=== PATIENT | female | born 1965 | race Two or more races ===

== ENCOUNTER 2020-07-17 15:26 | Emergency (ER) | payer OTHER, SELFPAY ==
[2020-07-17 15:54] VITALS: BP 127/63; PULSE 61; RESP 16; TEMP 36.6; O2SAT 97; BMI 16.6
--- NOTE | 2020-07-17 16:07 | ED_ITS ---
HPI - Eye Problem General Chief complaint: Eye Problems Stated complaint: stye in eye Time Seen by Provider: 07/17/20 16:07 History of Present Illness HPI Narrative: Patient complains of an irritated bump in the upper eyelid on the left side for the past 4 5 days, there is a little redness, there is no eye pain there is no vision loss there is no sensitivity to light there has been no trauma Related Data Previous Rx's Medication Instructions Recorded lisinopril 20 1 tab PO DAILY #30 tab 06/21/20 mg-hydrochlorothiazide 12.5 mg tablet ibuprofen 800 mg tablet 800 mg PO TID #90 tab 06/27/20 erythromycin 0.5 inch OPHTHALMIC (EYE) TID 5 07/17/20 Days #3.5 g Allergies Allergy/AdvReac Type Severity Reaction Status Date / Time No Known Allergies Allergy Verified 07/17/20 16:01 [No Known Allergies*] Review of Systems Review of Systems: No fever no chills no vision loss no eye pain no photosensitivity no discharge from the eye no rash Yes all other systems are reviewed and are negative [facility] Past Medical History Source: nursing notes reviewed Medical History (Updated 07/17/20 @ 16:13 by LANDON Dawn) HTN (hypertension) Social History Social History Alcohol intake: never Smoking Status: Current every day smoker Use of substances other than those prescribed or required for medical reasons: No Advance Directives: No Advance Directives Information Provided: Yes Physical Exam Vital Signs: Vital Signs: Last Vital Signs Temp 97.9 F 07/17/20 15:54 Pulse 61 07/17/20 15:54 Resp 16 07/17/20 15:54 BP 127/63 07/17/20 15:54 Pulse Ox 97 07/17/20 15:54 Body Mass Index 16.6 General appearance is comfortable no acute distress A&O x3 Head is normocephalic atraumatic The left eye has 2020 corrected vision with glasses there is no discharge the left upper lid has a stye and is red and inflamed the pupils equal round re active to light there is no photosensitivity extraocular motions are intact Neck is supple Respiratory no acute distress Extremities full range of motion x4, normal gait A&O x3, no focal deficits Discharge Plan Discharge Clinical Impression: Hordeolum externum (stye) Qualifiers: Laterality: left Eyelid: upper Qualified Code(s): H00.014 - Hordeolum externum left upper eyelid Patient Disposition: Home, Self-Care Additional Instructions: Apply a warm cloth to the left upper eyelid frequently Use antibiotic eye ointment as directed Return any time any worse condition or concerns such as discharge from the eye, pain, loss of vision Follow with primary doctor or eye doctor next week if not improved Prescriptions: New erythromycin 5 mg/gram (0.5 %) ointment 0.5 inch ophthalmic (eye) TID 5 Days Qty: 3.5 RF: 0 No Action lisinopril-hydrochlorothiazide 20-12.5 mg tablet 1 tab PO DAILY Qty: 30 RF: 3 ibuprofen 800 mg tablet 800 mg PO TID Qty: 90 RF: 1 Referrals: Chevy Mcknight [Physician] - 2 days (Left eyelid stye)
== END 2020-07-17 16:40 | disposition home or self-care (01) ==
PROVIDERS: Emergency Provider Emergency Medicine; PCP Internal Medicine
DX: H00.014 Hordeolum externum left upper eyelid (principal); H57.12 Ocular pain, left eye; F17.200 Nicotine dependence, unspecified, uncomplicated; Z71.6 Tobacco abuse counseling; Z79.899 Other long term (current) drug therapy
CPT/HCPCS: 99283; 99284

== ENCOUNTER → 2020-07-19 14:09 | Outpatient (BNVA) | payer OTHER, SELFPAY | PROVIDERS: PCP Internal Medicine; Referring Provider Internal Medicine; Visit Provider Nurse Practitioner | DX: Z01.818 Encounter for other preprocedural examination (principal) | CPT/HCPCS: 99212 ==

== ENCOUNTER 2020-07-28 07:24 | Outpatient (REF) | payer OTHER, SELFPAY | END 2020-07-28 07:25 | disposition home or self-care (01) | LOC: HO.LAB 07:24 | PROVIDERS: Visit Provider Internal Medicine | DX: Z20.828 Contact with and (suspected) exposure to other viral communicable diseases (principal) | CPT/HCPCS: C9803; U0003 ==

== ENCOUNTER 2020-08-15 15:04 | Outpatient (REF) | payer OTHER, SELFPAY ==
--- NOTE | 2020-08-15 | US_ITS ---
EXAMINATION: PELVIC ULTRASOUND CLINICAL INFORMATION: Postmenopausal bleeding COMPARISON: Previous pelvic ultrasound June 2018 TECHNIQUE: Transabdominal and transvaginal pelvic ultrasound. Transvaginal exam was performed for better visualization of the uterus and ovaries. FINDINGS: The uterus is anteverted and measures 6.6 x 3.4 x 4.2 cm in dimension. No focal uterine lesion is seen. Endometrial thickness is normal estimated at 0.3 cm. There are nabothian cysts in the cervix. The ovaries are normal-appearing. The right ovary measures 2.7 x 1.6 x 1.5 cm and the left ovary measures 2.1 x 1.7 x 1.2 cm. There is no fluid in the pelvis. US/US transvaginal IMPRESSION: Unremarkable exam. Endometrial thickness is normal.
--- NOTE | 2020-08-15 | US_ITS ---
EXAMINATION: PELVIC ULTRASOUND CLINICAL INFORMATION: Postmenopausal bleeding COMPARISON: Previous pelvic ultrasound June 2018 TECHNIQUE: Transabdominal and transvaginal pelvic ultrasound. Transvaginal exam was performed for better visualization of the uterus and ovaries. FINDINGS: The uterus is anteverted and measures 6.6 x 3.4 x 4.2 cm in dimension. No focal uterine lesion is seen. Endometrial thickness is normal estimated at 0.3 cm. There are nabothian cysts in the cervix. The ovaries are normal-appearing. The right ovary measures 2.7 x 1.6 x 1.5 cm and the left ovary measures 2.1 x 1.7 x 1.2 cm. There is no fluid in the pelvis. US/US pelvic complete IMPRESSION: Unremarkable exam. Endometrial thickness is normal.
== END 2020-08-15 15:05 | disposition home or self-care (01) ==
LOC: HO.US 15:04
PROVIDERS: PCP Internal Medicine; Visit Provider Internal Medicine
DX: N95.0 Postmenopausal bleeding (principal)
CPT/HCPCS: 76830; 76856

== ENCOUNTER 2020-08-25 11:49 | Outpatient (REF) | payer OTHER, SELFPAY | END 2020-08-25 11:50 | disposition home or self-care (01) | LOC: HO.LAB 11:49 | PROVIDERS: Visit Provider Internal Medicine | DX: Z20.828 Contact with and (suspected) exposure to other viral communicable diseases (principal) | CPT/HCPCS: C9803; U0003 ==

== ENCOUNTER 2020-09-29 09:10 | Day surgery (SDC) | payer OTHER, SELFPAY ==
--- NOTE | 2020-09-28 09:09 | HO.ANESPROP2 ---
Documented by User: Anay Bowden 09/28/20 09:14 HPI - Anesthesia Eval Consult details Narrative: 55yo F for Colonoscopy chronic opioids for lumbar DDD PMFSH Past Medical History Medical History (Updated 09/29/20 @ 10:09 by Krystyna Fuller) Benign essential hypertension Bradycardia GERD without esophagitis HTN (hypertension) Insomnia Lumbar degenerative disc disease Postmenopausal vaginal bleeding Pure hypercholesterolemia Family History Family History Mother Lung cancer Surgical History Surgical History H/O hemorrhoidectomy H/O lumbar discectomy History of esophagogastroduodenoscopy (EGD) Hx of colonoscopy (~2004) Social History Social History (Updated 09/29/20 @ 10:09 by Krystyna Fuller) Alcohol intake: never Smoking Status: Current every day smoker Tobacco Type: Cigarette Cigarettes Per Day: 5 Smoked in Last 30 Days: Yes Use of substances other than those prescribed or required for medical reasons: No Advance Directives: No Advance Directives Information Provided: Yes Meds Allergies Allergy/AdvReac Type Severity Reaction Status Date / Time No Known Allergies Allergy Verified 09/29/20 09:34 [No Known Allergies*] Home Medications Medication Instructions Recorded Confirmed Type omeprazole 20 mg capsule,delayed 20 mg PO DAILY 07/19/20 09/26/20 History release baclofen 10 mg tablet 10 mg PO TID 08/31/20 09/13/20 History gabapentin 300 mg capsule 300 mg PO BEDTIME 08/31/20 09/13/20 History zolpidem 10 mg tablet 10 mg PO BEDTIME PRN 08/31/20 09/01/20 History Exam Exam Date and Time: September 28, 2020908 Pertinent Lab Results Pertinent Lab Results: Laboratory Tests 03/25/20 03/25/20 08:26 08:26 WBC 8.9 Hgb 12.1 Hct 35.1 L Plt Count 305 Sodium 141 Potassium 3.7 Chloride 103 BUN 27 H D Creatinine 0.77 Assessment and Plan Assessment Anesthesia Assessment: Chart Reviewed Documented by User: Krystyna Fuller 09/29/20 10:13 [facility] Past Medical History Medical History (Updated 09/29/20 @ 10:09 by Krystyna Fuller) Benign essential hypertension Bradycardia GERD without esophagitis HTN (hypertension) Insomnia Lumbar degenerative disc disease Postmenopausal vaginal bleeding Pure hypercholesterolemia Family History Family History Mother Lung cancer Family history of problems with anesthesia: No Surgical History Surgical History H/O hemorrhoidectomy H/O lumbar discectomy History of esophagogastroduodenoscopy (EGD) Hx of colonoscopy (~2004) History of Problems with Anesthesia: No Social History Social History (Updated 09/29/20 @ 10:09 by Krystyna Fuller) Alcohol intake: never Smoking Status: Current every day smoker Tobacco Type: Cigarette Cigarettes Per Day: 5 Smoked in Last 30 Days: Yes Use of substances other than those prescribed or required for medical reasons: No Advance Directives: No Advance Directives Information Provided: Yes Meds Allergies Allergy/AdvReac Type Severity Reaction Status Date / Time No Known Allergies Allergy Verified 09/29/20 09:34 [No Known Allergies*] Home Medications Medication Instructions Recorded Confirmed Type omeprazole 20 mg capsule,delayed 20 mg PO DAILY 07/19/20 09/26/20 History release baclofen 10 mg tablet 10 mg PO TID 08/31/20 09/13/20 History gabapentin 300 mg capsule 300 mg PO BEDTIME 08/31/20 09/13/20 History zolpidem 10 mg tablet 10 mg PO BEDTIME PRN 08/31/20 09/01/20 History Exam Height,Weight and Vital Signs: Vital Signs Temp Pulse Resp BP Pulse Ox 09/29/20 09:48 98.0 F 43 L 16 153/71 H 98 Airway Mallampati Class: II TM Dist: >3cm Neck ROM: Full Partial: Upper and Lower Heart: RRR Lungs: CTAB Assessment and Plan Assessment Anesthesia Assessment: Anesthesia Plan Discussed and Chart Reviewed Final Anesthetic Review NPO: Yes ASA Class: II Final Preanesthetic Review: No Changes in Pt Med Stat, Meds/Allgs Chart Reviewed, Consent Obtained/Reviewed and Anes Risks/Benef Reviewed Patient Risk: Intermediate Procedure Risk: Low Assessment/Block/Sedation in SS: Assess/Block/Sedation-SS Anesthetic Plan Anesthetic Plan: MAC: Disposition: Standard PACU
[2020-09-29 09:39] VITALS: BMI 22.3
[2020-09-29 09:48] VITALS: BP 153/71; PULSE 43; RESP 16; TEMP 36.7; O2SAT 98
[2020-09-29] MEDS: Lactated Ringers 1,000 ML 100 ML IVCONT (09:59)
--- NOTE | 2020-09-29 10:01 | MHC.SHP ---
Pre-Procedural Eval Section B Chief Complaint: screening Relevant Family History (Specify if Yes): No Relevant Social History: Tobacco Use Present Medications: see Short Stay Collaborative assessment Medical History: Significant History (Benign essential hypertension GERD without esophagitis HTN (hypertension) Insomnia Lumbar degenerative disc disease Postmenopausal vaginal bleeding Pure hypercholesterolemia) History of Previous Operations: Relevant previous surgery/procedure and date(s) (H/O hemorrhoidectomy H/O lumbar discectomy History of esophagogastroduodenoscopy (EGD) Hx of colonoscopy (~2004) Allergies: Allergies Allergy/AdvReac Type Severity Reaction Status Date / Time No Known Allergies Allergy Verified 09/29/20 09:34 [No Known Allergies*] Review of Systems Sugical H&P ROS: Negative: Constitution, Cardiovascular, Respiratory, Neurological, Psychiatric, Hem-Onc, Allergic/Immunologic, Gastrointestinal, Genitourinary, Musculoskeletal, Integumentary, Endocrine and Eyes/Ears/Nose/Throat Exam Surgical H&P Exam: Normal: HEENT, Normal: Heart, Normal: Lungs, Normal: Extremities, Normal: Abdomen, Normal: Skin and Normal: Neurological Plan Diagnosis/Plan: Unchanged I have reviewed the history and physical and performed a pertinent physical examination on my patient. No changes have occurred unless specified.
--- NOTE | 2020-09-29 10:40 | P.OP_ITS ---
Operative Note Operative Note Date of Service: 09/29/20 Narrative: Operative Information Procedure Description: Colonoscopy COLONOSCOPY Instrument: Olympus variable stiffness pediatric scope 190L Colonoscopy Monitoring: Vital signs and clinical assessment, continuous EKG monitoring, Pulse oximetry, Carbon Dioxide monitoring and blood pressure monitoring were done throughout the procedure. Colon withdrawal time was 12 minutes. Procedure: The patient was placed in the left lateral decubitis position and pre-procedure medications were administered. After a digital rectal examination of the ano-rectum, the video colonoscope was inserted into the rectum and advanced through the colon to the cecum/TI. The colonoscope was slowly withdrawn in a retrograde panoramic fashion and the colon mucosa was carefully examined including a retroflexed view of the rectum. Findings and interventions are described below. Procedure Difficulty:easy Findings: Rubio diverticulosis, worse in sigmoid Terminal Ileum-normal, only superficially seen, not deeply intubated due to angulation Cecum:normal, large diverticulum seen on right sided retroflexion Ascending Colon: normal Transverse Colon -normal Descending Colon:normal Sigmoid Colon: normal Rectum: Retroflexion with small internal hemorrhoids, grade I Anorectum - normal Colon preparation: [place] Bowel Preparation Scale Right colon; 2 Transverse colon: 3 Left colon; 2 (0 = Unprepared colon segment with mucosa not seen due to solid stool that cannot be cleared. 1 = Portion of mucosa of the colon segment seen, but other areas of the colon segment not well seen due to staining, residual stool and/or opaque liquid. 2 = Minor amount of residual staining, small fragments of stool and/or opaque liquid, but mucosa of colon segment seen well. 3 = Entire mucosa of colon segment seen well with no residual staining, small fragments of stool or opaque liquid) Impression and Post Procedure Diagnosis: diverticulosis internal hemorrhoids Plan: High fiber diet leaflet Avoid straining at stool, epsom salts and sitz bath, anusol supps or cream prn Repeat Colonoscopy in 10 years or earlier if clinically indicated Above findings were reviewed with the patient and relevant handouts were provided if indicated.
--- NOTE | 2020-09-29 10:40 | PM.OP ---
Brief Operative Note Date of Service: 09/29/20 Post-op diagnosis: same Procedure: see op note Surgeon: Gill Poe MD Anesthesia: MAC Estimated blood loss (mL): 0 Condition: stable Disposition: PACU
[2020-09-29 10:45] VITALS: BP 90/41; PULSE 47; RESP 16; TEMP 36.1; O2SAT 100
[2020-09-29 11:00] VITALS: BP 108/62; PULSE 49; RESP 16; TEMP 36.1; O2SAT 99
[2020-09-29 11:15] VITALS: BP 126/66; PULSE 48; RESP 16; TEMP 36.1; O2SAT 99
--- NOTE | 2020-09-29 11:52 | HO.POSTANES ---
Post Anesthesia Evaluation Post Anesthesia Evaluation Vital Signs: Vital Signs Temp Pulse Resp BP Pulse Ox 09/29/20 11:15 97 F 48 L 16 126/66 99 09/29/20 11:00 97.0 F 49 L 16 108/62 99 09/29/20 10:45 97.0 F 47 L 16 90/41 L 100 09/29/20 09:48 98.0 F 43 L 16 153/71 H 98 Anesthesia: General (tiva) Mental Status: Awake Pain Control: Satisfactory Nausea/Vomiting: None Hydration: Adequate Anesthesia-Related Issues: No Anes. Related Issues
== END 2020-09-29 12:00 | disposition home or self-care (01) ==
PROVIDERS: PCP Internal Medicine; Visit Provider Internal Medicine Gastroenterology
PROC: 0DJD8ZZ Inspection of Lower Intestinal Tract, Via Natural or Artificial Opening Endoscopic (ICD-10-PCS; CPT 45378; principal; 2020-09-29 10:10)
DX: Z12.11 Encounter for screening for malignant neoplasm of colon (principal); K57.30 Diverticulosis of large intestine without perforation or abscess without bleeding; K64.0 First degree hemorrhoids; I10 Essential (primary) hypertension; K21.9 Gastro-esophageal reflux disease without esophagitis; R00.1 Bradycardia, unspecified; F17.210 Nicotine dependence, cigarettes, uncomplicated; Z79.899 Other long term (current) drug therapy
CPT/HCPCS: 45378

== ENCOUNTER → 2020-10-06 15:25 | Outpatient (BNVA) | payer OTHER, SELFPAY | PROVIDERS: PCP Internal Medicine; Visit Provider Nurse Practitioner ==

== ENCOUNTER 2020-10-14 07:27 | Outpatient (REF) | payer OTHER, SELFPAY ==
--- NOTE | ~2020-10-14 | MM_ITS ---
EXAMINATION: MM SCREENING DIGITAL BREAST TOMOSYNTHESIS, BILATERAL CLINICAL INFORMATION: Screening. Asymptomatic. Prior history right ultrasound-guided biopsy 2012, fibroadenoma. The lifetime risk of breast cancer based on the Tyrer-Cuzick Model is 13%. COMPARISON: Mammography: 10/08/2019, 03/22/2017, 07/14/2013 TECHNIQUE: Digital breast tomosynthesis is performed in both the craniocaudal and mediolateral oblique views along with computer-aided detection (CAD). Synthesized 2D images are generated from the tomosynthesis. Additional exaggerated right CC view is provided. FINDINGS: There are scattered areas of fibroglandular density (ACR BI-RADS breast composition Category b). There are no significant masses, abnormal calcifications, or other abnormalities. Parenchymal pattern is similar to prior studies. No developing density. There is biopsy clip marker again noted posterior outer right breast. There is a stable oval circumscribed nodule mid 8:30 o'clock right breast decreased in size since 2012 suggesting regressing cyst. There are some scattered bilateral punctate and coarse calcifications. No significant changes. MM/MM tomosynthesis screening BI IMPRESSION: No significant changes from prior exams. ASSESSMENT: BI-RADS 2: Benign RECOMMENDATION: Routine annual mammography screening. This patient's information was entered into a reminder system with a target due date for their next mammogram.
== END 2020-10-14 07:28 | disposition home or self-care (01) ==
LOC: HO.MAMMO 07:27
PROVIDERS: PCP Internal Medicine; Visit Provider Internal Medicine
DX: Z12.31 Encounter for screening mammogram for malignant neoplasm of breast (principal)
CPT/HCPCS: 77063; 77067

== ENCOUNTER 2021-03-31 07:11 | Outpatient (REF) | payer OTHER, SELFPAY ==
[2021-03-31 07:37] LABS: MANUAL DIFF FLAG NO
[2021-03-31 07:42] LABS: Basophils Percent Auto 0.1 % (0-2); Hematocrit 33.8 % (37-47); Hemoglobin 11.8 g/dl (12.0-16.0); Imm Gran Abs Auto 0.04 X10*3/uL (0.00-0.03); Imm Gran Pct Auto 0.5 % (0.0-0.4); Lymphocytes Absolute Auto 1.8 X10*3/uL (1.2-4.9); Lymphocytes Percent Auto 24.9 % (20-40); Mean Corpuscular HGB Conc 34.9 g/dl (31.0-35.0); Mean Corpuscular Hemoglobin 32.2 pg (27.0-33.0); Mean Corpuscular Volume 92.3 fL (80-98); Mean Platelet Volume 11.3 fL (9.4-12.3); Monocytes Absolute Auto 0.3 X10*3/uL (0.1-1.2); Monocytes Percent Auto 3.8 % (2-11); Neutrophils Absolute Auto 5.2 X10*3/uL (2.0-8.3); Neutrophils Percent Auto 70.7 % (45-73); Platelet Count 334 X10*3/uL (160-400); Red Blood Count 3.66 X10*6/uL (4.20-5.50); Red Cell Distribution Width 11.7 % (11.0-16.0); White Blood Count 7.4 X10*3/uL (4.8-10.8)
[2021-03-31 08:05] LABS: Alanine Aminotransferase 25 U/L (0-31); Albumin Level 4.8 g/dL (3.5-5.0); Alkaline Phosphatase 93 U/L (39-117); Anion Gap 13 (12-20); Aspartate Amino Transferase 21 U/L (5-31); Bilirubin Total 0.4 mg/dL (0.0-1.0); Blood Urea Nitrogen 15 mg/dL (9-16); Calcium 10.4 mg/dL (8.4-10.2); Carbon Dioxide 28 mmol/L (22-29); Chloride 105 mmol/L (96-108); Cholesterol 216 mg/dL; Estimated Glomerular Filt Rate > 60; Glucose Fasting 112 mg/dL (60-99); HDL Cholesterol 52 mg/dL; LDL Cholesterol Calculated 146 mg/dl; Potassium 3.9 mmol/L (3.3-5.1); Sodium 142 mmol/L (135-145); Triglycerides 93 mg/dL
[2021-03-31 08:22] LABS: Glucose Urine UA NEG (NEG); Leukocyte Esterase Urine NEG (NEG); Nitrite Urine NEG (NEG); Specific Gravity - Urine 1.015 (1.005-1.025); Urine Blood TRACE (NEG); Urine Ketones NEG (NEG); Urine Protein TRACE MG/DL (NEG-TRACE)
[2021-03-31 08:24] LABS: Appearance Urine CLEAR; Color Urine YELLOW
[2021-03-31 08:26] LABS: Free T4 (Free Thyroxine) 0.98 ng/dL (0.71-1.85); Vitamin D 25-OH Total 35.3 ng/mL (>30)
[2021-03-31 08:40] LABS: Bacteria Urine 1+ /LPF; Squamous Epithelial Cell Urine 4+ /LPF; WBC Urine 0-2 /HPF (0-4)
[2021-03-31 08:43] LABS: Erythrocyte Sedimentation Rate 8 MM/HR (0-20)
[2021-03-31 09:52] LABS: Folate 18.8 ng/mL (> or = 4.0); Vitamin B12 982 pg/mL (200-900)
== END 2021-03-31 07:12 | disposition home or self-care (01) ==
LOC: HO.LAB 07:11
PROVIDERS: Absent Provider Internal Medicine; PCP Internal Medicine; Visit Provider Nurse Practitioner Family
DX: Z00.00 Encounter for general adult medical examination without abnormal findings (principal); I10 Essential (primary) hypertension; E78.00 Pure hypercholesterolemia, unspecified; R53.83 Other fatigue
CPT/HCPCS: 36415; 80053; 80061; 81001; 82306; 82607; 82746; 84439; 84443; 85025; 85652

== ENCOUNTER 2021-04-06 06:59 | Outpatient (REF) | payer OTHER, SELFPAY ==
[2021-04-06 07:47] LABS: MANUAL DIFF FLAG NO
[2021-04-06 07:59] LABS: Basophils Percent Auto 0.2 % (0-2); Eosinophils Absolute Auto 0.3 X10*3/uL (0.0-0.4); Eosinophils Percent Auto 3.6 % (0-4); Hematocrit 35.4 % (37-47); Hemoglobin 12.2 g/dl (12.0-16.0); Imm Gran Abs Auto 0.07 X10*3/uL (0.00-0.03); Imm Gran Pct Auto 0.7 % (0.0-0.4); Lymphocytes Absolute Auto 4.8 X10*3/uL (1.2-4.9); Lymphocytes Percent Auto 50.7 % (20-40); Mean Corpuscular HGB Conc 34.5 g/dl (31.0-35.0); Mean Corpuscular Hemoglobin 32.3 pg (27.0-33.0); Mean Corpuscular Volume 93.7 fL (80-98); Mean Platelet Volume 11.5 fL (9.4-12.3); Monocytes Absolute Auto 0.5 X10*3/uL (0.1-1.2); Monocytes Percent Auto 5.1 % (2-11); Neutrophils Absolute Auto 3.8 X10*3/uL (2.0-8.3); Neutrophils Percent Auto 39.7 % (45-73); Platelet Count 336 X10*3/uL (160-400); Red Blood Count 3.78 X10*6/uL (4.20-5.50); Red Cell Distribution Width 12.2 % (11.0-16.0); White Blood Count 9.5 X10*3/uL (4.8-10.8)
[2021-04-06 08:03] LABS: Glucose Urine UA NEG (NEG); Leukocyte Esterase Urine NEG (NEG); Nitrite Urine NEG (NEG); PH 6.5 (5.0-8.0); UACC Culture Trigger NO; Urine Blood TRACE (NEG); Urine Ketones NEG (NEG); Urine Protein NEG (NEG-TRACE)
[2021-04-06 08:06] LABS: Appearance Urine CLEAR; Color Urine YELLOW
[2021-04-06 08:10] LABS: Rheumatoid Factor < 15.0 IU/mL (<15.0)
[2021-04-06 08:18] LABS: Bacteria Urine TRACE /LPF; Squamous Epithelial Cell Urine 3+ /LPF; WBC Urine 0-2 /HPF (0-4)
[2021-04-06 08:19] LABS: Alanine Aminotransferase 56 U/L (0-31); Albumin Level 4.3 g/dL (3.5-5.0); Alkaline Phosphatase 82 U/L (39-117); Anion Gap 11 (12-20); Aspartate Amino Transferase 40 U/L (5-31); Bilirubin Total 0.4 mg/dL (0.0-1.0); Blood Urea Nitrogen 22 mg/dL (9-16); Calcium 9.6 mg/dL (8.4-10.2); Carbon Dioxide 29 mmol/L (22-29); Chloride 105 mmol/L (96-108); Cholesterol 180 mg/dL; Estimated Glomerular Filt Rate > 60; Glucose Fasting 101 mg/dL (60-99); HDL Cholesterol 38 mg/dL; LDL Cholesterol Calculated 92 mg/dl; Potassium 3.7 mmol/L (3.3-5.1); Sodium 141 mmol/L (135-145); Total Protein 6.3 g/dL (6.5-8.0); Triglycerides 250 mg/dL
[2021-04-06 08:34] LABS: Free T4 (Free Thyroxine) 1.11 ng/dL (0.71-1.85); Thyroid Stimulating Hormone 0.85 uIU/mL (0.32-4.0)
[2021-04-06 08:40] LABS: TSH reflex Free T4 0.84 uIU/mL (0.32-4.0)
[2021-04-08 13:05] LABS: Antibody to SS-A Antigen <1.0 NEG AI (<1.0 NEG); Antibody to SS-B Antigen <1.0 NEG AI (<1.0 NEG)
== END 2021-04-06 07:00 | disposition home or self-care (01) ==
LOC: HO.LAB 06:59
PROVIDERS: Absent Provider Nurse Practitioner Family; PCP Internal Medicine; Visit Provider Internal Medicine
DX: I10 Essential (primary) hypertension (principal); F17.200 Nicotine dependence, unspecified, uncomplicated; K21.9 Gastro-esophageal reflux disease without esophagitis; E78.00 Pure hypercholesterolemia, unspecified; R53.83 Other fatigue; H04.123 Dry eye syndrome of bilateral lacrimal glands
CPT/HCPCS: 36415; 80053; 80061; 81001; 81003; 84439; 84443; 85025; 86235; 86431

== ENCOUNTER 2021-04-07 08:13 | Outpatient (REF) | payer OTHER, SELFPAY ==
--- NOTE | ~2021-04-07 | MM_ITS ---
EXAMINATION: BONE DENSITOMETRY CLINICAL INDICATION: Asymptomatic menopausal state. COMPARISON: This is the patient's baseline examination. TECHNIQUE: Using a [employer] DXA System (software version: 13.1) manufactured by [employer], dual-energy x-ray absorptiometry was performed of the lumbar spine and left hip. The images are of good technical quality. Summary results are attached. FINDINGS: AP SPINE L1-L4: BMD 0.904 g/cm2, Z-score -1.1, T-score -2.3, osteopenia. LEFT FEMUR, NECK: BMD 0.691 g/cm2, Z-score -1.2, T-score -2.5, osteoporosis. LEFT FEMUR, TOTAL: BMD 0.740 g/cm2, Z-score -1.2, T-score -2.1, osteopenia. IDENTIFIED RISK FACTORS: Anticonvulsant. Menopause. Recurrent falls. Rheumatoid arthritis. Current smoker. HISTORY OF FRACTURE: None listed. MEDICATIONS: Multivitamin. MM/XR DEXA axial skeleton IMPRESSION: 1. DIAGNOSIS: Osteoporosis based on the lowest T-score value of -2.5 in the femoral neck applying World Health Organization criteria. 2. 10-YEAR FRACTURE RISK PREDICTION, FRAX: Major osteoporotic fracture (clinical spine, forearm, hip or shoulder) 7.5%. Hip fracture 2.5%. 3. Treatment Recommendations: NOF guidelines recommend consideration for treatment in postmenopausal women and men age 50 and older presenting with the following: -A hip or vertebral (clinical or morphometric) fracture. -T-score less than or equal to -2.5 at the femoral neck or spine after appropriate evaluation to exclude secondary causes. -Low bone mass at the hip or spine and a 10-year fracture probability by FRAX of greater than or equal to 3% for hip fracture or greater than or equal to 20% for major osteoporotic fracture based on the [place] adapted WHO algorithm. 4. Other Recommendations: All treatment decisions require clinical judgment and consideration of individual patient factors, including patient preferences, comorbidities, previous drug use, risk factors not captured in the FRAX model (e.g. frailty, falls, vitamin D deficiency, increased bone turnover, interval significant decline in bone density) and possible under or overestimation of fracture risk by FRAX. Additional medical evaluation for secondary cause of low bone mineral density may be appropriate. FUTURE SCAN RECOMMENDATION: People with diagnosed cases of osteoporosis or at high risk for fracture should have regular bone mineral density tests. For patients eligible for Medicare, routine testing is allowed once every 2 years. The testing frequency can be increased to one year for patients who have rapidly progressing disease, those who are receiving or discontinuing medical therapy to restore bone mass, or have additional risk factors.
== END 2021-04-07 08:14 | disposition home or self-care (01) ==
LOC: HO.MAMMO 08:13
PROVIDERS: PCP Internal Medicine; Visit Provider Internal Medicine
DX: Z13.820 Encounter for screening for osteoporosis (principal); M81.0 Age-related osteoporosis without current pathological fracture; Z78.0 Asymptomatic menopausal state; Z91.81 History of falling; M05.9 Rheumatoid arthritis with rheumatoid factor, unspecified; Z79.899 Other long term (current) drug therapy
CPT/HCPCS: 77080

== ENCOUNTER 2021-10-20 07:39 | Outpatient (REF) | payer OTHER, SELFPAY ==
[2021-10-20 08:01] LABS: MANUAL DIFF FLAG NO
[2021-10-20 08:07] LABS: Basophils Percent Auto 0.3 % (0-2); Eosinophils Absolute Auto 0.3 X10*3/uL (0.0-0.4); Eosinophils Percent Auto 3.8 % (0-4); Hematocrit 34.4 % (37.0-47.0); Imm Gran Abs Auto 0.03 X10*3/uL (0.00-0.03); Imm Gran Pct Auto 0.3 % (0.0-0.4); Lymphocytes Percent Auto 33.6 % (20-40); Mean Corpuscular HGB Conc 34.9 g/dl (31.0-35.0); Mean Corpuscular Hemoglobin 32.7 pg (27.0-33.0); Mean Corpuscular Volume 93.7 fL (80.0-98.0); Monocytes Absolute Auto 0.5 X10*3/uL (0.1-1.2); Neutrophils Absolute Auto 5.1 x10*3/uL (2.0-8.3); Platelet Count 302 X10*3/uL (160-400); Red Blood Count 3.67 X10*6/uL (4.20-5.50); Red Cell Distribution Width 11.7 % (11.0-16.0)
[2021-10-20 08:46] LABS: Appearance Urine HAZY; Color Urine YELLOW; Glucose Urine UA NEG (NEG); Leukocyte Esterase Urine 2+ (NEG); Nitrite Urine NEG (NEG); PH 6.5 (5.0-8.0); Specific Gravity - Urine 1.015 (1.005-1.025); UACC Culture Trigger YES; Urine Blood TRACE (NEG); Urine Ketones NEG (NEG); Urine Protein NEG (NEG-TRACE)
[2021-10-20 09:10] LABS: Alanine Aminotransferase 29 U/L (0-31); Albumin Level 4.4 g/dL (3.5-5.0); Alkaline Phosphatase 81 U/L (39-117); Anion Gap 11 (12-20); Aspartate Amino Transferase 21 U/L (5-31); Bilirubin Total 0.6 mg/dL (0.0-1.0); Blood Urea Nitrogen 14 mg/dL (9-16); Calcium 10.1 mg/dL (8.4-10.2); Carbon Dioxide 29 mmol/L (22-29); Chloride 104 mmol/L (96-108); Cholesterol 171 mg/dL; Estimated Glomerular Filt Rate > 60; Glucose Fasting 96 mg/dL (60-99); HDL Cholesterol 43 mg/dL; LDL Cholesterol Calculated 101 mg/dl; Potassium 3.7 mmol/L (3.3-5.1); Sodium 140 mmol/L (135-145); Total Protein 6.6 g/dL (6.5-8.0); Triglycerides 138 mg/dL
[2021-10-20 09:24] LABS: Bacteria Urine 1+ /LPF; RBC Urine 0-2 /HPF (0); Squamous Epithelial Cell Urine 2+ /LPF
[2021-10-20 09:33] LABS: Vitamin D 25-OH Total 31.8 ng/mL (>30)
== END 2021-10-20 07:40 | disposition home or self-care (01) ==
LOC: HO.LAB 07:39
PROVIDERS: PCP Internal Medicine; Visit Provider Internal Medicine
DX: I10 Essential (primary) hypertension (principal); E78.00 Pure hypercholesterolemia, unspecified; E55.9 Vitamin D deficiency, unspecified
CPT/HCPCS: 36415; 80053; 80061; 81001; 82306; 85025; 87086

== ENCOUNTER 2021-12-21 09:33 | Outpatient (REF) | payer OTHER, SELFPAY ==
--- NOTE | 2021-12-21 09:31 | EMG_ITS ---
Bilateral tibial and peroneal motor studies were performed. Bilateral superficial peroneal and sural sensory studies were performed. Tibial H reflexes were obtained. Needle examination was performed at paraspinal and some limb muscles. IMPRESSION: 1. Chronic bilateral lower lumbar radiculopathy with no evidence of acute pathology. 2. Otherwise this study was unremarkable with no evidence of any significant neuropathy. MD MISSY Suggs/ROSANGELA / [id number]
== END 2021-12-21 09:34 | disposition home or self-care (01) ==
LOC: HO.NEURO 09:33
PROVIDERS: Visit Provider Internal Medicine
DX: M79.604 Pain in right leg (principal); M79.605 Pain in left leg
CPT/HCPCS: 95886; 95911

== ENCOUNTER 2022-02-25 10:29 | Emergency (ER) | payer OTHER, SELFPAY ==
[2022-02-25 11:02] VITALS: BP 157/73; PULSE 64; RESP 12; TEMP 36.7; O2SAT 97; BMI 23.0
--- NOTE | 2022-02-25 11:33 | ED.EYEPROB ---
HPI - Eye Problem General Chief complaint: Eye Problems Stated complaint: swollen L eye Time Seen by Provider: 02/25/22 11:33 Source: patient Mode of arrival: ambulatory History of Present Illness HPI Narrative: 56-year-old female with a past medical history of hypertension presenting complaining of left upper eyelid swelling and pain since yesterday. Denies foreign body sensation, vision change/loss, blurry vision, fever, drainage. Denies ring glasses or contact MD chief complaint: eye pain and eye redness Onset (ago): day(s) Related Data Previous Rx's Medication Instructions Recorded atorvastatin 10 mg tablet 10 mg PO DAILY #90 tabs 09/18/21 omeprazole 20 mg capsule,delayed 20 mg PO DAILY #30 caps 09/18/21 release promethazine 25 mg tablet 25 mg PO Q6H PRN for 09/18/21 nausea/vomiting #60 tabs amlodipine 5 mg tablet 5 mg PO DAILY #90 tabs 11/29/21 fluticasone propionate 50 1 spray intranasal DAILY 14 days 12/18/21 mcg/actuation nasal #100 mL spray,suspension (Flonase Allergy Relief) lisinopril 20 1 tab PO DAILY 90 days #90 tabs 01/01/22 mg-hydrochlorothiazide 12.5 mg tablet pyridoxine (vitamin B6) 100 mg 100 mg PO BID 30 days #60 tabs 01/22/22 tablet gabapentin 300 mg capsule 300 mg PO BEDTIME #30 caps 01/29/22 ibuprofen 800 mg tablet 800 mg PO TID PRN for fever #90 01/29/22 tabs oxycodone-acetaminophen 10 mg-325 1 tab PO Q6H PRN pain 28 days #112 01/29/22 mg tablet tabs duloxetine 30 mg capsule,delayed 30 mg PO DAILY 90 days #90 caps 02/06/22 release baclofen 10 mg tablet 10 mg PO TID #270 tabs 02/21/22 cetirizine 10 mg tablet (Zyrtec) 10 mg PO DAILY #30 tabs 02/21/22 erythromycin 5 mg/gram (0.5 %) eye 1 appl ophthalmic-Left QID 7 days 02/25/22 ointment #3.5 grams Allergies Allergy/AdvReac Type Severity Reaction Status Date / Time No Known Allergies Allergy Verified 01/22/22 08:27 [No Known Allergies*] Review of Systems Review of Systems: Constitutional: No Fever, No Chills, No Fatigue, No Malaise ENT/Mouth: No Hearing loss, No Ear Pain, No Nasal Congestion, No sore throat, No Rhinorrhea, No Swallowing Difficulty Eyes: + Eyelid Pain, No Swelling, No Redness, No Foreign Body, No Discharge, No Vision Changes Cardiovascular: No Chest Pain, No SOB, No Palpitations Respiratory: No Cough, No Sputum, No Dyspnea Gastrointestinal: No Nausea, No Vomiting, No Diarrhea, No Constipation, No Abdominal pain Musculoskeletal: No joint pain, No Myalgias, No Joint Swelling Skin: No Skin Lesions, No rash Neuro: No Weakness, No Dizziness, No Headache Yes all other systems are reviewed and are negative [facility] Past Medical History Attestation statement: The following information was validated with the patient. Medical History HTN (hypertension) Surgical History H/O hemorrhoidectomy H/O lumbar discectomy History of esophagogastroduodenoscopy (EGD) Family History Family History Mother Lung cancer Other Mental health problem Social History Social History Household Members: Spouse and Children Housing: House Alcohol intake: current Alcohol intake frequency: holidays/special occasions only Patient Tobacco Use Status: Current everyday Tobacco user Tobacco use type: Cigarette Cigarettes Per Day: 3 e-Cigarette/Vaping Use: Never Used Advance Directives: No Advance Directives Information Provided: No service: No Current occupational status: employed 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 Cognitive needs: No Hearing needs: No Vision needs: Yes Physical Exam Vital Signs: Vital Signs: Last Vital Signs Temp 98.0 F 02/25/22 11:02 Pulse 64 02/25/22 11:02 Resp 12 02/25/22 11:02 BP 157/73 H 02/25/22 11:02 Pulse Ox 97 02/25/22 11:02 O2 Del Method 02/25/22 11:02 BMI result Body Mass Index 23.0 Const: General: cooperative, healthy appearing and no acute distress Orientation/consciousness: patient oriented x3 Limitations: no limitations HEENT: Head: Yes normal to inspection and Yes atraumatic Ears: hearing grossly normal bilaterally General nose exam: Normal external nose present Face and sinus: Yes normal facial exam Eyes: Other: Left upper eyelid with noted internal hordeolum with surrounding swelling and mild erythema. Tender to palpation. No drainage. No evidence of periorbital or orbital cellulitis General: appearance normal, both eyes and all related structures Conjunctivae: conjunctivae normal Sclerae: sclerae normal Corneas: corneas normal Pupils: Equal, round and reactive pupils present EOM: EOMs intact bilaterally Neck: Neck: Yes normal visual inspection and Yes no meningeal signs Resp: Effort & Inspection: normal respiratory effort and no respiratory distress Cardio: Rate: regular rate Skin: Rashes: no rashes Wounds: no wounds Neuro: General: patient oriented x3, tone normal and no meningeal signs Cranial nerves: Yes Equal, round and reactive pupils present Gait exam (Neuro): Normal gait present Extrem: General: Yes normal to inspection MDM - Eye Problem MDM Narrative Medical decision making narrative: 56-year-old female with a past medical history of hypertension presenting complaining of left upper eyelid swelling and pain since yesterday. On exam vital signs stable, NAD/nontoxic-appearing, physical exam consistent with left upper eye internal stye. Discussed with patient warm compresses and massaging at home and will prescribe erythromycin ointment Medical Records Attestation: I reviewed the patient's medical records. Lab Data Attestation: I reviewed the patient's lab results. Discharge Plan Discharge Clinical Impression: Hordeolum eyelid Patient Disposition: Home, Self-Care Instructions: [place] (ED) Additional Instructions: You have a stye in her left upper eyelid. Please apply warm compresses at least 3 times a day and massage area Erythromycin ointment will help with infection If pain or symptoms become worse, swelling worsens, you have vision change or loss or develops fever please return to the emergency department Prescriptions: New erythromycin 5 mg/gram (0.5 %) ointment 1 appl ophthalmic-Left QID 7 Days Qty: 3.5 0RF No Action promethazine 25 mg tablet 25 mg PO Q6H PRN (Reason: for nausea/vomiting) Qty: 60 2RF omeprazole 20 mg capsule,delayed release(DR/EC) 20 mg PO DAILY Qty: 30 5RF atorvastatin 10 mg tablet 10 mg PO DAILY Qty: 90 1RF amlodipine 5 mg tablet 5 mg PO DAILY Qty: 90 1RF fluticasone propionate [Flonase Allergy Relief] 50 mcg/actuation spray,suspension 1 spray intranasal DAILY 14 Days Qty: 100 0RF Rx Instructions: administer into each nostril lisinopril-hydrochlorothiazide 20-12.5 mg tablet 1 tab PO DAILY 90 Days Qty: 90 0RF gabapentin 300 mg capsule 300 mg PO BEDTIME Qty: 30 0RF ibuprofen 800 mg tablet 800 mg PO TID PRN (Reason: for fever) Qty: 90 1RF oxycodone-acetaminophen 10-325 mg tablet 1 tab PO Q6H PRN (Reason: pain) 28 Days Qty: 112 0RF duloxetine 30 mg capsule,delayed release(DR/EC) 30 mg PO DAILY 90 Days Qty: 90 0RF cetirizine [Zyrtec] 10 mg tablet 10 mg PO DAILY Qty: 30 1RF baclofen 10 mg tablet 10 mg PO TID Qty: 270 0RF pyridoxine (vitamin B6) 100 mg tablet 100 mg PO BID 30 Days Qty: 60 2RF Referrals: Bayron Wheeler MD [Primary Care Provider] - Interventions: ED Discharge Assessment Last Done: 02/25/22 11:44 Discharge Date/Time: 02/25/22 11:46
== END 2022-02-25 11:46 | disposition home or self-care (01) ==
PROVIDERS: Emergency Provider Emergency Medicine Emergency Medical Services; PCP Internal Medicine
DX: H00.014 Hordeolum externum left upper eyelid (principal); F17.210 Nicotine dependence, cigarettes, uncomplicated; Z71.6 Tobacco abuse counseling; Z79.899 Other long term (current) drug therapy
CPT/HCPCS: 99282; 99283

== ENCOUNTER 2022-07-26 07:50 | Outpatient (REF) | payer OTHER, SELFPAY ==
--- NOTE | ~2022-07-26 | MM_ITS ---
EXAMINATION: MM SCREENING DIGITAL BREAST TOMOSYNTHESIS, BILATERAL CLINICAL INFORMATION: Screening. Asymptomatic. The lifetime risk of breast cancer based on the Tyrer-Cuzick Model is 9%. COMPARISON: Mammography: October 14, 2020 and studies dating back to July 14, 2013 TECHNIQUE: Digital breast tomosynthesis is performed in both the craniocaudal and mediolateral oblique views along with computer-aided detection (CAD). Synthesized 2D images are generated from the tomosynthesis. Right exaggerated craniocaudal view also performed. FINDINGS: There are scattered areas of fibroglandular density (ACR BI-RADS breast composition Category b). There are no significant masses, abnormal calcifications, or other abnormalities. Stable right breast circumscribed densities identified. MM/MM tomosynthesis screening BI IMPRESSION: No significant changes from prior exam. ASSESSMENT: BI-RADS 2: Benign RECOMMENDATION: Routine annual mammography screening. This patient's information was entered into a reminder system with a target due date for their next mammogram.
== END 2022-07-26 07:51 | disposition home or self-care (01) ==
LOC: HO.MAMMO 07:50
PROVIDERS: PCP Internal Medicine; Visit Provider Internal Medicine
DX: Z12.31 Encounter for screening mammogram for malignant neoplasm of breast (principal)
CPT/HCPCS: 77063; 77067

== ENCOUNTER 2022-10-23 16:22 | Outpatient (REF) | payer OTHER, SELFPAY ==
[2022-10-23 18:44] LABS: Appearance Urine Cloudy; Color Urine Yellow; Glucose Urine UA Negative (Negative); Leukocyte Esterase Urine Large (3+) (Negative); Nitrite Urine Negative (Negative); Specific Gravity - Urine 1.015 (1.005-1.025); UMIC TRIGGER UACC YES; Urine Blood Negative (Negative); Urine Ketones Negative (Negative); Urine Protein Negative (Neg-Trace)
[2022-10-23 19:09] LABS: Bacteria Urine 2+ (None Seen); Hyaline Casts Urine 0-2 /LPF (0-2); Squamous Epithelial Cell Urine >20 /HPF (0-2); UACC Culture Trigger YES; WBC Urine 0-5 /HPF (0-5)
== END 2022-10-23 16:23 | disposition home or self-care (01) ==
LOC: HO.LAB 16:22
PROVIDERS: Physician Assistant; Visit Provider Internal Medicine
DX: N30.00 Acute cystitis without hematuria (principal)
CPT/HCPCS: 81001; 87086

== ENCOUNTER 2022-12-17 12:58 | Outpatient (AMB) | payer OTHER, SELFPAY ==
[2022-12-17 13:00] VITALS: BP 152/88; PULSE 57; TEMP 36.1; O2SAT 100; BMI 21.9
--- NOTE | 2022-12-17 13:00 | MHC.PC.OV ---
Vital Signs 12/17/22 13:00 Height 5 ft 1 in Weight 116 lb 0.6 oz BMI 21.9 BP 152/88 H Blood Pressure Location Lt brachial Position Sitting Pulse 57 Pulse Source Pulse Oximeter Temp 96.9 F Temp Source Skin Pulse Oximetry (%) 100 Oxygen Delivery Method Room Air Intake Visit Reasons: pain in legs [employer] Specialist Required: No Allergies No Known Allergies [No Known Allergies*] Allergy (Verified 06/20/23 11:28) Medication List - Last Reconciled 12/17/22 by Bayron Wheeler MD alendronate 70 mg PO QWEEK 3 months amlodipine 5 mg PO DAILY atorvastatin 10 mg PO DAILY baclofen 10 mg PO TID ciprofloxacin HCl 500 mg PO BID 7 days fluticasone propionate 50 mcg/actuation (Flonase Allergy Relief) 1 spray intranasal DAILY 14 days gabapentin 300 mg PO BEDTIME ibuprofen 800 mg PO TID PRN lisinopril-hydrochlorothiazide 20-12.5 mg 1 tab PO DAILY 90 days omeprazole 20 mg PO DAILY oxycodone-acetaminophen 10-325 mg 1 tab PO Q6H PRN 28 days promethazine 25 mg PO Q6H PRN Tobacco use date assessed: 12/17/22 HPI pain in legs HPI Details Patient comes in today mainly to discuss her present issues as to why her insurance is not allowing her to get her pain med Rx refilled this past weekend Was reportedly told by her pharmacy that per her insurance, she has been getting her pain med Rx refilled about 2 days earlier than when they are actually due consistently for the past few months and that her current Rx would not be due to another week at least States that she has been on the same dose of Rx for a few years now and takes them as instructed Admits that there are times when she has to take slightly more than recommended when her leg pains increase but states that since she takes them only when needed, is sometimes able to skip a dose here and there so she often has a few spare/extra tablets to allow her to be able to do this without running short on her Rx States that her refill was supposed to be due this past weekend but for unexplained reasons, her insurance is telling her she is a week early Is also on Gabapentin 300 mg Q HS but states that she gets very tired and drowsy when she takes Gabapentin so has not been able to take this additionally during the daytime No other acute complaints or symptoms are noted [facility] Medical History Osteoporosis Depression Menopause Headache Bradycardia Postmenopausal vaginal bleeding Insomnia GERD without esophagitis Lumbar degenerative disc disease Pure hypercholesterolemia Benign essential hypertension HTN (hypertension) Surgical History Hx of tubal ligation History of esophagogastroduodenoscopy (EGD) H/O lumbar discectomy H/O hemorrhoidectomy Family History Mother Lung cancer Sister Colon cancer Sister Ovarian cancer Other Mental health problem Social History Household Members: Spouse and Children Housing: House Alcohol intake: current Alcohol intake frequency: holidays/special occasions only Patient Tobacco Use Status: Former Tobacco user Tobacco use type: Cigarette Cigarettes Per Day: 3 e-Cigarette/Vaping Use: Never Used service: No Current occupational status: employed 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 Depression Screening Interpretation: Negative Source: Developed by Drs. Benjamín Chau, Miryam Fisher, Dangelo Dillon and colleagues, with an educational leopoldo from [employer]. Thrive Questionnaire Declines Thrive assessment: No Date Thrive assessed: 10/23/22 I am a: Patient What is your living situation today?: I have a steady place to live Within the past 12 months, did the food you bought not last and you didn't have the money to get more?: Never true Within the past 12 months, did you worry whether your food would run out before you got money to buy more?: Never true Do you have trouble paying for medicines?: No Do you have trouble getting transportation to medical appointments?: No Do you have trouble paying your heating and electricity bill?: No Do you have trouble taking care of your child, family member or friend?: No Do you have trouble with day-to-day activities such as bathing, preparing meals, shopping, managing finances, etc.?: No Are you currently unemployed and looking for a job?: No Are you interested in more education?: No Currently or been in a relationship where the following occur: no concerns reported AUDIT C Alcohol Use Questionnaire (AUDIT-C) 1. How often do you have a drink containing alcohol?: Never 2. How many drinks containing alcohol do you have on a typical day when you are drinking?: 1 or 2 3. How often do you have six or more drinks on one occasion?: Never Total Score: 0 Score Reviewed/Action Taken: Yes PAKO-7 AMB Questionnaire PAKO-7 Date PAKO - 7 assessed: 10/23/22 Source: Developed by Drs. Benjamín Chau, Miryam Fisher, Dangelo Dillon and colleagues, with an educational leopoldo from [employer]. Review of Systems Const Denies chills, Reports fatigue, Denies fever(s) and Denies headache(s) ENT Denies dysphagia, Denies dizziness, Denies otalgia, Denies headache(s), Denies odynophagia and Denies sore throat Card Denies chest pain, Denies palpitations and Denies dyspnea Resp Denies cough and Denies dyspnea GI Reports abdominal pain (over the suprapubic area lately), Denies constipation, Denies dysphagia, Denies heartburn, Denies diarrhea, Denies nausea, Denies odynophagia and Denies vomiting Denies difficulty voiding, Reports nocturia, Reports dysuria (mild) and Reports urinary urgency (and frequency) Musc Reports back pain (over the lower back - chronic) Neuro Denies dizziness and Denies headache(s) Endo Reports fatigue and Denies palpitations Physical exam (Primary Care) Vital Signs: Last Vital Signs Temp 96.9 F 12/17/22 13:00 Pulse 57 12/17/22 13:00 BP 152/88 H 12/17/22 13:00 Pulse Ox 100 12/17/22 13:00 Oxygen Delivery Method Room Air 12/17/22 13:00 BMI result Body Mass Index 21.9 Tobacco/Smoking Status: Tobacco use Status Tobacco use date assessed 12/17/22 12/17/22 13:01 Patient Tobacco Use Status Current everyday Tobacco 12/17/22 13:01 Tobacco use type Cigarette 12/17/22 13:01 e-Cigarette/Vaping Use Never Used 12/17/22 13:01 Depression Screening Interpretation: Negative Thrive Assessment: Date of Thrive Assessment Date Thrive assessed 10/23/22 12/17/22 13:01 Currently or been in a relationship where the following occur: no concerns reported Const General: no acute distress and alert HENMT Ears: TM's normal bilaterally and EAC's normal Throat: Yes posterior oropharynx normal and Yes tonsils normal (no TP congestion) Neck Neck: Yes no lymphadenopathy and Yes supple Resp Auscultation: clear to auscultation bilaterally, no rales and no wheezes Cardio Rate: regular rate Rhythm: regular rhythm Heart sounds: no murmurs GI Palpation (GI): Soft to palpation and nontender Auscultation: normal bowel sounds Back/Spine/Pelvis Thoracic/Lumbar Spine: lumbar spinal tenderness Skin General skin exam: no rashes or lesions noted Extrem General: Yes no clubbing, cyanosis or edema Assessment and Plan Assessment & Plan (1) Pure hypercholesterolemia: Code(s): E78.00 - Pure hypercholesterolemia, unspecified Plan: Reinforced low cholesterol diet Continue Atorvastatin 10 mg QD Will recheck her fasting lipids and labs in a few months for follow-up (2) Benign essential hypertension: Code(s): I10 - Essential (primary) hypertension Plan: Reinforced low-sodium diet - goal is systolic BP of at least 130 mm or less Continue Lisinopril-Hydrochlorothiazide 20-12.5 mg once a day (in AM) and Amlodipine 5 mg daily (in PM) (3) Lumbar degenerative disc disease: Code(s): M51.36 - Other intervertebral disc degeneration, lumbar region Plan: Still c/o frequent radiation of pain down her left leg EMG and NCV done in December 2021 revealed (+) chronic bilateral lower lumbar radiculopathy with no evidence of acute pathology. Study was otherwise unremarkable with no evidence of any significant neuropathy Reinforced activity and weight lifting restrictions to minimize aggravating her back pain Continue Oxycodone-Acetaminophen 10-325 mg every 6 hours as needed (Rx refilled), Baclofen 10 mg TID PRN, Duloxetine 30 mg QD, Gabapentin 300 mg Q HS and Ibuprofen 800 mg 3 times a day with food She was previously sent for repeat lumbar spine x-rays for further evaluation of her recent increasing low back pain as has been several years now since she had any imaging studies done on her lower back but she did not get them done (4) Osteoporosis: Code(s): M81.0 - Age-related osteoporosis without current pathological fracture Qualifiers: Osteoporosis type: age-related Presence of current pathological fracture: without current pathological fracture Qualified Code(s): M81.0 - Age-related osteoporosis without current pathological fracture Plan: Baseline BMD done on 04/07/2021 revealed (+) osteoporosis with a lowest T-score value of -2.5 in the femoral neck Fall precautions reinforced Encouraged to continue taking her daily Vitamin D and Calcium supplements She was started on Alendronate 70 mg Q week a few months ago Will recheck her BMD again for follow up in a few months (5) GERD without esophagitis: Code(s): K21.9 - Gastro-esophageal reflux disease without esophagitis Plan: Dietary restrictions reinforced Continue Omeprazole 20 mg QD (6) Insomnia: Code(s): G47.00 - Insomnia, unspecified Qualifiers: Insomnia type: unspecified Qualified Code(s): G47.00 - Insomnia, unspecified Plan: Sleep hygiene reinforced Trazodone has not helped much and she could not tolerate Zolpidem (nightmares) (7) Depression: Code(s): F32.A - Depression, unspecified Qualifiers: Depression Type: major depressive disorder Major depression recurrence: recurrent Active/Remission status: currently active Major depression episode severity: unspecified Qualified Code(s): F33.9 - Major depressive disorder, recurrent, unspecified Plan: Continue Duloxetine 30 mg QD (8) Smoker: Code(s): F17.200 - Nicotine dependence, unspecified, uncomplicated Plan: Counseled again on smoking cessation Plan To return as scheduled in July 2023 for her annual physical examination Medications: Refilled oxycodone-acetaminophen 10-325 mg 1 tab PO Q6H PRN 112 tabs 0RF pain 28 days M51.36 - Other intervertebral disc degeneration, lumbar region Coding Level of Care Code Est Pt Level 3 (74812) Diagnoses Pure hypercholesterolemia E78.00 Benign essential hypertension I10 Lumbar degenerative disc disease M51.36 Age-related osteoporosis without current pathological fracture M81.0 Osteoporosis type: age-related Presence of current pathological fracture: without current pathological fracture GERD without esophagitis K21.9 Insomnia, unspecified type G47.00 Insomnia type: unspecified Episode of recurrent major depressive disorder, unspecified depression episode severity F33.9 Depression Type: major depressive disorder Major depression recurrence: recurrent Active/Remission status: currently active Major depression episode severity: unspecified Smoker F17.200
== END 2022-12-17 14:14 | disposition home or self-care (01) ==
LOC: HO.HMGH 12:58
PROVIDERS: PCP Internal Medicine; Visit Provider Internal Medicine
DX: M51.36 Other intervertebral disc degeneration, lumbar region (principal); E78.00 Pure hypercholesterolemia, unspecified; I10 Essential (primary) hypertension; F33.9 Major depressive disorder, recurrent, unspecified; M81.0 Age-related osteoporosis without current pathological fracture; K21.9 Gastro-esophageal reflux disease without esophagitis; G47.00 Insomnia, unspecified; F17.210 Nicotine dependence, cigarettes, uncomplicated
CPT/HCPCS: 99213

== ENCOUNTER 2023-02-21 08:27 | Outpatient (REF) | payer OTHER, SELFPAY ==
[2023-02-22 01:14] LABS: CT PCR NOT DETECTED (Not Detect.); NG PCR NOT DETECTED (Not Detect.)
[2023-02-26 07:43] LABS: HPV mRNA E6/E7 rflx Not Detected (Not Detected)
== END 2023-02-21 08:28 | disposition home or self-care (01) ==
LOC: HO.LNP 08:27
PROVIDERS: PCP Internal Medicine; Visit Provider Advanced Practice Midwife
DX: Z01.419 Encounter for gynecological examination (general) (routine) without abnormal findings (principal); N89.8 Other specified noninflammatory disorders of vagina; N94.10 Unspecified dyspareunia; N84.1 Polyp of cervix uteri; Z20.2 Contact with and (suspected) exposure to infections with a predominantly sexual mode of transmission
CPT/HCPCS: 0353U; 87624; 88142

== ENCOUNTER 2023-03-07 14:14 | Outpatient (REF) | payer OTHER, SELFPAY | END 2023-03-07 14:15 | disposition home or self-care (01) | LOC: HO.LAB 14:14 | PROVIDERS: PCP Internal Medicine; Visit Provider Advanced Practice Midwife | DX: N84.1 Polyp of cervix uteri (principal) | CPT/HCPCS: 57500; 81025; 88305 ==

== ENCOUNTER 2023-05-29 08:07 | Outpatient (REF) | payer OTHER, SELFPAY ==
[2023-05-31 22:43] LABS: HPV mRNA E6/E7 rflx Not Detected (Not Detected)
== END 2023-05-29 08:08 | disposition home or self-care (01) ==
LOC: HO.LNP 08:07
PROVIDERS: PCP Internal Medicine; Visit Provider Advanced Practice Midwife
DX: Z12.4 Encounter for screening for malignant neoplasm of cervix (principal); Z11.51 Encounter for screening for human papillomavirus (HPV); R87.625 Unsatisfactory cytologic smear of vagina
CPT/HCPCS: 87624; 88142; 99212

== ENCOUNTER 2023-05-29 08:07 | Outpatient (AMB) | payer OTHER, SELFPAY ==
--- NOTE | 2023-05-29 08:10 | A.OFFVIS_ITS ---
Intake Vital Signs 05/29/23 08:11 Height 5 ft 1 in Weight 115 lb BMI 21.7 BP 138/78 Intake Visit Reasons: Repeat pap Intake Note: The patient agreed to use of a esthetician and manager medical spa during this encounter. Scribed for TABATHA Rao by Eli Landaverde esthetician and manager medical spa, on 05/29/2023 at 8:21 am EST. Data Lead: Data Lead Present (Ava) Allergies No Known Allergies [No Known Allergies*] Allergy (Verified 05/29/23 08:11) Post menopausal: Yes HPI HPI Comments History of Present Illness Details She is here today for a repeat pap due to unsatisfactory cells obtained during last pap smear. She presents no concerns today. PFSH Medical History Osteoporosis Depression Menopause Headache Bradycardia Postmenopausal vaginal bleeding Insomnia GERD without esophagitis Lumbar degenerative disc disease Pure hypercholesterolemia Benign essential hypertension HTN (hypertension) Surgical History Hx of tubal ligation History of esophagogastroduodenoscopy (EGD) H/O lumbar discectomy H/O hemorrhoidectomy Family History Mother Lung cancer Sister Colon cancer Sister Ovarian cancer Other Mental health problem Social History Household Members: Spouse and Children Housing: House Alcohol intake: current Alcohol intake frequency: holidays/special occasions only Patient Tobacco Use Status: Former Tobacco user Tobacco use type: Cigarette Cigarettes Per Day: 3 e-Cigarette/Vaping Use: Never Used service: No Current occupational status: employed 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 Cognitive needs: No Hearing needs: No Vision needs: Yes Female Reproductive History Menstrual Age of Menarche: 15 Date of last pap smear: 02/21/23 (unsat neg hpv) Physical Exam Vital Signs: Last Vital Signs BP 138/78 05/29/23 08:11 BMI result Body Mass Index 21.7 Const General: cooperative, healthy appearing, comfortable, no acute distress, well developed, alert and awake Other: General: Yes bladder normal to palpation External Female Exam: normal external appearance and normal appearance of the urethra Speculum Exam - Vagina: normal appearance of the vagina, normal palpation and vagina atrophic Speculum Exam - Cervix: normal appearance of the cervix, normal palpation and Other cervical findings present (slightly bled during pap) Bimanual exam- vagina & uterus: normal bimanual exam, normal palpation, bladder normal to palpation and normal palpation Bimanual Exam- Adnexa, other: normal adnexae and no masses Assessment & Plan Assessment & Plan (1) Unsatisfactory cytology of vaginal Papanicolaou smear: Code(s): R87.625 - Unsatisfactory cytologic smear of vagina Plan: Discussed: Pap obtained. All of her questions and concerns were addressed to the best of my ability and shared decision making. She is agreeable to plan of care. RTO for AG Orders: Orders Pap Smear Today R87.625 - Unsatisfactory cytologic smear of vagina Coding Level of Care Code Est Pt Level 3 (37382) Diagnoses Unsatisfactory cytology of vaginal Papanicolaou smear R87.625
[2023-05-29 08:11] VITALS: BP 138/78; BMI 21.7
== END 2023-05-29 09:39 | disposition home or self-care (01) ==
PROVIDERS: PCP Internal Medicine; Visit Provider Advanced Practice Midwife
DX: R87.625 Unsatisfactory cytologic smear of vagina (principal)
CPT/HCPCS: 99213

== ENCOUNTER 2023-06-20 10:38 | Outpatient (AMB) | payer OTHER, SELFPAY ==
[2023-06-20 10:55] VITALS: BP 128/82; PULSE 55; O2SAT 98; BMI 21.5
--- NOTE | 2023-06-20 10:55 | MHC.PC.OV ---
Vital Signs 06/20/23 10:55 Height 5 ft 1 in Weight 114 lb BMI 21.5 BP 128/82 Blood Pressure Location Lt brachial Position Sitting Pulse 55 Pulse Source Pulse Oximeter Pulse Oximetry (%) 98 Oxygen Delivery Method Room Air Intake Visit Reasons: right ear and face pin Crate Liner Required: No Accompanied by: Self / Same As Patient Allergies No Known Allergies [No Known Allergies*] Allergy (Verified 06/20/23 11:28) Medication List - Last Reconciled 06/20/23 by Bayron Wheeler MD alendronate 70 mg PO QWEEK 3 months amlodipine 5 mg PO DAILY atorvastatin 10 mg PO DAILY baclofen 10 mg PO TID fluticasone propionate 50 mcg/actuation (Flonase Allergy Relief) 1 spray intranasal DAILY 14 days gabapentin 300 mg PO BEDTIME ibuprofen 800 mg PO TID PRN lisinopril-hydrochlorothiazide 20-12.5 mg 1 tab PO DAILY 90 days omeprazole 20 mg PO DAILY oxycodone 10 mg PO Q6H PRN 28 days promethazine 25 mg PO Q6H PRN Tobacco use date assessed: 06/20/23 Dental Screening Dental Screen Date: 06/20/23 Did you have a dental visit in the last 12 months?: No Did you have a dental problem in the last 6 months where you did not have access to dental care?: No Was dental information given to patient?: No HPI right ear and face pin HPI Details Patient comes in today complaining of increased right ear and right-sided facial pain for the past 2 days She denies any ear discharge or fever but states that the right side of her throat feels sore lately Reports (+) mild headache on the right side but thinks that this is mainly related to her ear pain Denies any dizziness Denies any chest pains, no SOB No nausea/vomiting, no abdominal pain No change in bowel habits noted She is also requesting to get her flu shot today if possible [facility] Medical History Osteoporosis Depression Menopause Headache Bradycardia Postmenopausal vaginal bleeding Insomnia GERD without esophagitis Lumbar degenerative disc disease Pure hypercholesterolemia Benign essential hypertension HTN (hypertension) Surgical History Hx of tubal ligation History of esophagogastroduodenoscopy (EGD) H/O lumbar discectomy H/O hemorrhoidectomy Family History Mother Lung cancer Sister Colon cancer Sister Ovarian cancer Other Mental health problem Social History Household Members: Spouse and Children Housing: House Alcohol intake: current Alcohol intake frequency: holidays/special occasions only Patient Tobacco Use Status: Former Tobacco user Tobacco use type: Cigarette Cigarettes Per Day: 3 e-Cigarette/Vaping Use: Never Used service: No Current occupational status: employed 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 1. Little interest or pleasure in doing things: not at all 2. Feeling down, depressed, or hopeless: not at all 3. Trouble falling or staying asleep, or sleeping too much: not at all 4. Feeling tired or having little energy: not at all 5. Poor appetite or overeating: not at all 6. Feeling bad about yourself - or that you are a failure or have let yourself or your family down: not at all 7. Trouble concentrating on things, such as reading the newspaper or watching television: not at all 8. Moving or speaking so slowly that other people could have noticed. Or the opposite - being so fidgety or restless that you have been moving around a lot more than usual: not at all 9. Thoughts that you would be better off or of hurting yourself in some way: not at all Total score: 0 Depression Screening Interpretation: Negative Depression Screening Done: Yes 76436 - PHQ-9 Billing: Yes Source: Developed by Drs. Benjamín Chau, Miryam Fisher, Dangelo Dillon and colleagues, with an educational leopoldo from [employer]. Thrive Questionnaire Date Thrive assessed: 06/20/23 I am a: Patient What is your living situation today?: I have a steady place to live Within the past 12 months, did the food you bought not last and you didn't have the money to get more?: Never true Within the past 12 months, did you worry whether your food would run out before you got money to buy more?: Never true Do you have trouble paying for medicines?: No Do you have trouble getting transportation to medical appointments?: No Do you have trouble paying your heating and electricity bill?: No Do you have trouble taking care of your child, family member or friend?: No Do you have trouble with day-to-day activities such as bathing, preparing meals, shopping, managing finances, etc.?: No Are you currently unemployed and looking for a job?: No Are you interested in more education?: No Please select the resources that you would like help with: None Currently or been in a relationship where the following occur: no concerns reported AUDIT C Alcohol Use Questionnaire (AUDIT-C) 1. How often do you have a drink containing alcohol?: Never 2. How many drinks containing alcohol do you have on a typical day when you are drinking?: 1 or 2 3. How often do you have six or more drinks on one occasion?: Never Total Score: 0 Score Reviewed/Action Taken: Yes PAKO-7 AMB Questionnaire PAKO-7 Date PAKO - 7 assessed: 06/20/23 Feeling nervous, anxious, or on edge: 0 = Not at all Not being able to stop or control worryin = Not at all Worrying too much about different things: 0 = Not at all Trouble relaxin = Not at all Being so restless that it is hard to sit still: 0 = Not at all Becoming easily annoyed or irritable: 0 = Not at all Feeling afraid as if something awful might happen: 0 = Not at all Total PAKO-7 score (0-4 normal; 5-9 mild; 10-14 moderate; 15-21 severe): 0 Source: Developed by Drs. Benjamín Chau, Miryam Fisher, Dangelo Dillon and colleagues, with an educational leopoldo from [employer]. Review of Systems Const Denies chills, Denies fatigue, Denies fever(s) and Reports headache(s) (mild, right-sided) ENT Denies dysphagia, Denies dizziness, Reports otalgia (right ear), Reports headache(s) (mild, right-sided), Denies neck pain, Denies odynophagia, Reports sinus pain (on the right side) and Reports sore throat (mild, over the right side) Card Denies chest pain, Denies palpitations and Denies dyspnea Resp Denies cough and Denies dyspnea GI Denies abdominal pain, Denies constipation, Denies dysphagia, Denies heartburn, Denies diarrhea, Denies nausea, Denies odynophagia and Denies vomiting Denies difficulty voiding, Denies nocturia and Denies dysuria Musc Denies neck pain Neuro Denies dizziness and Reports headache(s) (mild, right-sided) Endo Denies fatigue and Denies palpitations Physical exam (Primary Care) Vital Signs: Last Vital Signs Pulse 55 06/20/23 10:55 BP 128/82 06/20/23 10:55 Pulse Ox 98 06/20/23 10:55 Oxygen Delivery Method Room Air 06/20/23 10:55 BMI result Body Mass Index 21.5 Tobacco/Smoking Status: Tobacco use Status Tobacco use date assessed 06/20/23 06/20/23 11:00 Patient Tobacco Use Status Former Tobacco user 06/20/23 11:00 Tobacco use type Cigarette 06/20/23 11:00 e-Cigarette/Vaping Use Never Used 06/20/23 11:00 PHQ-9: PHQ-9 Score PHQ-9: Total score 0 06/20/23 11:32 Depression Screening Interpretation: Negative Thrive Assessment: Date of Thrive Assessment Date Thrive assessed 06/20/23 06/20/23 11:00 Currently or been in a relationship where the following occur: no concerns reported Const General: no acute distress and alert HENMT Ears: TM normal on the left, EAC's normal and TM abnormal bulging (slightly) on the right; with no fluid behind the TM Throat: Yes abnormal tonsil ((+) mild congestion/swelling noted over the right tonsillar area) and Yes posterior oropharynx abnormal ((+) erythema) Neck Neck: Yes no lymphadenopathy and Yes supple Resp Auscultation: clear to auscultation bilaterally, no rales and no wheezes Cardio Rate: regular rate Rhythm: regular rhythm Heart sounds: no murmurs GI Palpation (GI): Soft to palpation and nontender Auscultation: normal bowel sounds Skin General skin exam: no rashes or lesions noted Extrem General: Yes no clubbing, cyanosis or edema Office Procedures Flu Questionnaire Does the patient have a severe egg allergy?: No Does the patient have severe life threatening allergies?: No Does the patient have a fever or illness today?: No Has the patient ever had Guillain-[place] Syndrome?: No Has the patient ever had any past reaction to a flu shot?: No Immunizations flu vacc [id number] 6mos up(PF) 60 mcg(15 mcgx4)/0.5 mL IM syringe Performing Provider: Bayron Wheeler MD Performing Location: [facility] Administered by: Sohail Ronquillo on 06/20/23 11:08 Dose Route Admin Location Dispensed Lot Number Expiration Date NDC Celery Tier 0.5 mL IM Left Deltoid 0.5 mL [id number] 03/08/24 63843-710-58 [email or web address] VIS Given Date VIS Provided VIS Publication Date 06/20/23 Single Vaccine 21 Eligibility Eligibility Date Funding Source Not [facility] Eligible 06/20/23 Private Assessment and Plan Assessment & Plan (1) Acute pharyngitis: Code(s): J02.9 - Acute pharyngitis, unspecified Qualifiers: Pharyngitis/tonsillitis etiology: unspecified etiology Qualified Code(s): J02.9 - Acute pharyngitis, unspecified Plan: Patient is advised that her right tonsil appears swollen/inflamed and may be the actual source of her current right ear pain as well Will start her empirically on Augmentin 875 mg BID x 10 days May take OTC Tylenol PRN for pain (both ear pain and sore throat) (2) Congestion of nasal sinus: Code(s): R09.81 - Nasal congestion Plan: May continue taking OTC cough / cold meds PRN for symptomatic relief Plan Per request, flu vaccine given today To return as scheduled next month for her annual physical examination Orders: Orders Influenza [id number] Immunization 06/20/23 Z23 - Encounter for immunization Medications: New amoxicillin-pot clavulanate 875-125 mg 1 tab PO BID 10 days 20 tabs 0RF Coding Level of Care Code Est Pt Level 3 (64408) Diagnoses Acute pharyngitis, unspecified etiology J02.9 Pharyngitis/tonsillitis etiology: unspecified etiology Congestion of nasal sinus R09.81
== END 2023-06-20 11:34 | disposition home or self-care (01) ==
PROVIDERS: PCP Internal Medicine; Visit Provider Internal Medicine
DX: Z23 Encounter for immunization (principal)
CPT/HCPCS: 90471; 90686; 99213

== ENCOUNTER 2023-07-15 08:37 | Emergency (ER) | payer OTHER, SELFPAY ==
--- NOTE | ~2023-07-15 | XR_ITS ---
EXAMINATION: XR ABDOMEN KUB CLINICAL INDICATION: Abdominal pain. Constipation. COMPARISON: None available. TECHNIQUE: AP view of the abdomen. FINDINGS: No dilated air-filled loops of small bowel to suggest an obstructive process. Normal colonic stool burden. Small pelvic calcifications are likely vascular in nature. No acute osseous abnormality. Minimal degenerative changes of the spine. XR/XR KUB IMPRESSION: 1. Nonobstructing bowel gas pattern. 2. Normal colonic stool burden.
--- NOTE | ~2023-07-15 | CT_ITS ---
EXAMINATION: CT ABDOMEN AND PELVIS WITHOUT CONTRAST CLINICAL INFORMATION: Abdominal pain. COMPARISON: Abdominal ultrasound 07/09/2018 TECHNIQUE: Multidetector volumetric imaging was performed from the superior aspect of the liver through the pubic symphysis. Sagittal and coronal reformatted images were obtained on the technologist's workstation. This CT examination was performed using dose optimization techniques as appropriate, variously including the following: *Automated exposure control *Adjustment of mA and/or kV according to patient size (this includes techniques or standardized protocols for targeted exams where dose is matched to indication/reason for exam; i.e. extremities or head) *Use of iterative reconstruction technique DLP: 288 mGy-cm FINDINGS: LUNG BASES: The visualized lung bases are unremarkable. LIVER, GALLBLADDER, AND BILIARY TREE: The noncontrast liver is normal in size and contour. No biliary ductal dilatation is present. The gallbladder is unremarkable with no evidence of radiopaque gallstones, gallbladder wall thickening, or obvious pericholecystic inflammatory changes. PANCREAS: No ductal dilatation. SPLEEN: Not enlarged. ADRENAL GLANDS: Thickening of the adrenal glands. KIDNEYS AND URETERS: The kidneys are normal in size, shape, and attenuation. No hydronephrosis, hydroureter, or calculi seen. No perinephric stranding. BLADDER: Unremarkable. GASTROINTESTINAL TRACT: Diffuse diverticular disease of the colon. There is wall thickening and submucosal edema of the distal transverse colon through the proximal descending colon with surrounding pericolonic inflammatory change. No small bowel obstruction. Appendix is within normal limits. ABDOMINAL WALL: No significant hernia is appreciated. LYMPH NODES: No bulky lymphadenopathy. VASCULAR: Normal caliber abdominal aorta. PELVIC VISCERA: Unremarkable. OSSEOUS STRUCTURES: Marked degenerative disc disease at L4-L5. CT/CT abdomen pelvis wo IV con IMPRESSION: Wall thickening and submucosal edema of the distal transverse colon through the proximal descending colon with surrounding pericolonic inflammatory change. There is diffuse colonic diverticulosis. Differential diagnosis includes acute diverticulitis versus acute colitis. Follow-up imaging after treatment is advised.
[2023-07-15 08:51] VITALS: BP 149/59; PULSE 63; RESP 18; TEMP 37.1; O2SAT 98; BMI 21.5
--- NOTE | 2023-07-15 09:29 | ED.ABDPAIN ---
HPI - Abdominal Pain General Chief Complaint: Abdominal Pain Stated Complaint: abd pain Time Seen by Provider: 07/15/23 09:08 Source: patient and RN notes reviewed Mode of arrival: ambulatory Limitations: no limitations History of Present Illness HPI narrative: This is a 57-year-old female, with a history of hypertension, GERD, fibromyalgia on oxycodone and hyperlipidemia, who presents to the emergency department with ongoing abdominal cramps since Saturday. Patient states that on Saturday, she had vegetables for lunch, she says shortly after she developed abdominal cramps and vomited once. She states that throughout the day she is unable to eat due to nausea and cramping. In the next day, she was drinking water and took her neck cm and started to feel better. Saturday she was feeling better, was able to eat soup and drink plenty of fluids, she endorse some nausea at that time. She states that this morning her abdominal cramping have returned. She has been unable to have a bowel movement since Saturday. She was able to drink coffee this morning without difficulty. She states that she is not on a bowel regimen for chronically prescribed oxycodone. No history of problems with constipation the past. No abdominal surgeries. No urinary symptoms. No other complaints or concerns at this time. MD elicited complaint: abdominal pain Pertinent past history: constipation Onset (ago): day(s) Pain Consistency: intermittent Location: none Severity: moderate Quality: cramping Radiation: none Migration to: no migration Exacerbating factors: nothing Relieving factors: nothing Associated symptoms: denies other symptoms Related Data Previous Rx's Medication Instructions Recorded amlodipine 5 mg tablet 5 mg PO DAILY #90 tabs 03/15/22 fluticasone propionate 50 1 spray intranasal DAILY 14 days 04/23/22 mcg/actuation nasal #100 mL spray,suspension (Flonase Allergy Relief) omeprazole 20 mg capsule,delayed 20 mg PO DAILY #90 caps 01/24/23 release atorvastatin 10 mg tablet 10 mg PO DAILY #90 tabs 02/15/23 promethazine 25 mg tablet 25 mg PO Q6H PRN for 04/16/23 nausea/vomiting #60 tabs alendronate 70 mg tablet 70 mg PO QWEEK 3 months #13 tabs 06/08/23 amoxicillin 875 mg-potassium 1 tab PO BID 10 days #20 tabs 06/20/23 clavulanate 125 mg tablet baclofen 10 mg tablet 10 mg PO TID #270 tabs 06/26/23 lisinopril 20 1 tab PO DAILY 90 days #90 tabs 06/26/23 mg-hydrochlorothiazide 12.5 mg tablet ibuprofen 800 mg tablet 800 mg PO TID PRN for fever #90 07/08/23 tabs oxycodone 10 mg tablet 10 mg PO Q6H PRN pain 28 days #112 07/10/23 tabs gabapentin 300 mg capsule 300 mg PO BEDTIME #30 caps 07/12/23 amoxicillin 875 mg-potassium 1 tab PO Q8H 7 days #21 tabs 07/15/23 clavulanate 125 mg tablet Allergies Allergy/AdvReac Type Severity Reaction Status Date / Time No Known Allergies Allergy Verified 06/20/23 11:28 [No Known Allergies*] Review of Systems Review of Systems Yes all other systems are reviewed and are negative Constitutional: Reports as per [facility] Past Medical History Medical History Osteoporosis Depression Menopause Headache Bradycardia Postmenopausal vaginal bleeding Insomnia GERD without esophagitis Lumbar degenerative disc disease Pure hypercholesterolemia Benign essential hypertension HTN (hypertension) Surgical History Hx of tubal ligation History of esophagogastroduodenoscopy (EGD) H/O lumbar discectomy H/O hemorrhoidectomy Family History Family History Mother Lung cancer Sister Colon cancer Sister Ovarian cancer Other Mental health problem Social History Social History Household Members: Spouse and Children Housing: House Alcohol intake: current Alcohol intake frequency: holidays/special occasions only Patient Tobacco Use Status: Former Tobacco user Tobacco use type: Cigarette Cigarettes Per Day: 3 e-Cigarette/Vaping Use: Never Used Advance Directives: No Advance Directives Information Provided: No service: No Current occupational status: employed Current occupation: [employer] Cognitive needs: No Hearing needs: No Vision needs: Yes Physical Exam ED Vital Signs: Vital Signs - 24 hr 07/15/23 08:51 07/15/23 11:38 07/15/23 13:59 Temperature 98.7 F 98.5 F Pulse Rate 63 55 57 Respiratory Rate 18 12 14 Blood Pressure 149/59 H 165/66 H 149/71 H Pulse Oximetry 98 98 97 Oxygen Delivery Method Room Air Room Air Room Air 07/15/23 15:09 Temperature Pulse Rate 50 Respiratory Rate 20 Blood Pressure 145/65 H Pulse Oximetry 97 Oxygen Delivery Method Room Air BMI result Body Mass Index 21.5 Const General: cooperative, comfortable and no acute distress Orientation/consciousness: patient oriented x3 Limitations: no limitations HENCA Head: Yes normal to inspection, Yes normocephalic and Yes atraumatic Ears: hearing grossly normal bilaterally General nose exam: Normal external nose present Face and sinus: Yes normal facial exam Mouth: Normal oral and palatal mucosa present, oropharynx normal and moist mucous membranes Throat: Yes posterior oropharynx normal Eyes General: appearance normal, both eyes and all related structures Eyelids: Yes eyelids normal Conjunctivae: conjunctivae normal Sclerae: sclerae normal Pupils: Equal, round and reactive pupils present EOM: EOMs intact bilaterally Neck Neck: Yes normal visual inspection, Yes full ROM and Yes no lymphadenopathy Lymphatic: no lymphadenopathy noted Chest Chest palpation & inspection: normal inspection of the chest Resp Effort & Inspection: normal respiratory effort and able to speak in complete sentences Auscultation: clear to auscultation bilaterally, no crackles, no rales, no rhonchi and no wheezes Cardio Rate: regular rate Rhythm: regular rhythm Heart sounds: S1 normal heart sound present and S2 normal heart sound present GI Other: Abdomen is soft, with tenderness to palpation diffusely throughout entire abdomen. Hypoactive bowel sounds present. Inspection: Yes normal to inspection Skin General skin exam: no rashes or lesions noted Trauma: no lacerations or abrasions Wounds: no wounds Neuro General: patient oriented x3 and moves all extremities Cranial nerves: Yes Equal, round and reactive pupils present Extrem General: Yes normal to inspection Right upper extremity: normal to inspection Left upper extremity: normal to inspection Right lower extremity: normal to inspection Left lower extremity: normal to inspection Course Reevaluation(s) Reevaluation #1: Patient in no acute distress, feeling okay. KUB x-ray shows nonobstructing bowel gas pattern and normal colonic stool burden. No current abdominal pain. Potassium low at 2.6. Discussed case with Dr. Clarke, who recommends potassium 40 mEq once by mouth. Time: 11:31 Reevaluation #2: CT scan returns, showing evidence colitis versus diverticulitis. Patient re-evaluated, now having abdominal pain. She was evaluated by Dr. Clarke. Patient now with rebound tenderness and guarding, abdomen is still soft. Dr. Clarke's recommendations are to admit to medicine for further evaluation. Discussed with patient, and she declines wanting hospital admission at this time. We discussed the risk and benefits of treating at home. Despite knowing these risks, patient would like to be discharged home. Patient will be medicated with morphine 4 mg IV and re-evaluate Time: 13:36 Reevaluation #3: Patient feeling much better after receiving morphine. I again discussed treatment options, she still adamantly declines wanting to be admitted to the hospital for further treatment and care. Urinalysis returns, appears to be contaminated. Patient has no urinary symptoms therefore, will await urine culture. Patient can be treated with Augmentin t.i.d. x7 days. Patient will be medicated with 2nd dose of potassium 40 mEq by mouth. I would like this lab repeated however patient adamantly refuses, I discussed these risks with patient including leaving without repeated levels including cardiac arrythmia and cardiac , despite knowing these risk she is still adamentaly refusing. I instructed her to call her primary care physician tomorrow to have this repeated. Given strict return precautions. Patient understands and agrees with plan. Time: 14:52 Medical Decision Making Medical Decision Making MDM Narrative: 57-year-old female presenting to the emergency department with intermittent abdominal cramping since Saturday. On arrival, patient is nontoxic-appearing, in no acute distress. Mildly hypertensive at 149/59, all other vital signs within normal limits. Abdomen is soft, with diffuse tenderness throughout abdomen, no point tenderness. Hypoactive bowel sounds. Patient is on chronic oxycodone, last bowel movement was on Saturday. Given she is not on any bowel regimen and is on opioids, patient is at risk for constipation verses bowel obstruction. She has no history of abdominal surgeries in the past. Plan: Labs, KUB x-ray Differential Diagnosis Differential Diagnoses: The differential diagnosis associated with the presentation includes Constipation, small-bowel obstruction, gastritis, diverticulitis, diverticulosis Admission/Observation Consideration of admission/observation: Escalation of care including admission/observation considered Patient would have been admitted to the hospital had her work up had any findings where hospital admission was appropriate and her clinical presentation warranted hospital admission. Lab Data MDM Lab Attestation statement: I reviewed the patient's lab results. Mild leukocytosis at 13.5, mild normocytic anemia noted an 11.2 point, around her baseline. 07/15/23 10:25 07/15/23 10:25 Labs: Lab Results 07/15/23 07/15/23 Range/Units 10:25 14:03 WBC 13.5 H (4.8-10.8) X10*3/uL RBC 3.28 L (4.20-5.50) X10*6/uL Hgb 11.2 L (12.0-16.0) g/dl Hct 31.7 L (37.0-47.0) % MCV 96.6 (80.0-98.0) fL MCH 34.1 H (27.0-33.0) pg MCHC 35.3 H (31.0-35.0) g/dl RDW 11.9 (11.0-16.0) % Plt Count 289 (160-400) X10*3/uL MPV 11.0 (9.4-12.3) fL Immature Gran % (Auto) 0.4 (0.0-0.4) % Neut % (Auto) 77.6 H (45-73) % Lymph % (Auto) 17.7 L (20-40) % [place] % (Auto) 3.3 (2-11) % Eos % (Auto) 0.7 (0-4) % Baso % (Auto) 0.3 (0-2) % Lymph # (Auto) 2.4 (1.2-4.9) X10*3/uL [place] # (Auto) 0.4 (0.1-1.2) X10*3/uL Eos # (Auto) 0.1 (0.0-0.4) X10*3/uL Baso # (Auto) 0.0 (0.0-0.2) X10*3/uL Abs Immat Gran (auto) 0.06 H (0.00-0.03) X10*3/uL Absolute Neuts (auto) 10.5 H (2.0-8.3) x10*3/uL Absolute Nucleated RBC 0.000 (0.0-0.012) X10*3/uL Nucleated RBC % (auto) 0.0 (0.0-0.2) /100WBC ESR 23 H (0-20) MM/HR Sodium 142 (135-145) mmol/L Potassium 2.6 L D (3.3-5.1) mmol/L Chloride 104 (96-108) mmol/L Carbon Dioxide 27 (22-29) mmol/L Anion Gap 14 (12-20) BUN 17 H (9-16) mg/dL Creatinine 0.62 (0.5-1.4) mg/dL Estim Creat Clear Calc 75.5 Estimated GFR > 60 Random Glucose 87 (60-115) mg/dL Calcium 8.5 D (8.4-10.2) mg/dL Magnesium 2.6 (1.6-2.6) mg/dL Total Bilirubin 0.4 (0.0-1.0) mg/dL Direct Bilirubin 0.2 (0.0-0.5) mg/dL AST 34 H (5-31) U/L ALT 37 H (0-31) U/L Alkaline Phosphatase 90 (39-117) U/L C-Reactive Protein 3.00 H (< or = 0.50) mg/dL Total Protein 6.1 L (6.5-8.0) g/dL Albumin 3.8 (3.5-5.0) g/dL Lipase 13 (8-78) U/L Urine Color Yellow Urine Appearance Clear Urine pH 7.0 (5.0-9.0) Ur Specific [place] 1.020 (1.005-1.025) Urine Protein Negative (Neg-Trace) mg/dL Urine Glucose (UA) Negative (Negative) mg/dL Urine Ketones 40 (Negative) mg/dL Urine Blood Negative (Negative) Urine Nitrite Negative (Negative) Ur Leukocyte Esterase Moderate (2+) H (Negative) Urine RBC 6-10 H (0-2) /HPF Urine WBC 11-20 H (0-5) /HPF Ur Squamous Epith Cells 6-10 (0-2) /HPF Urine Bacteria Trace (None Seen) Hyaline Casts 0-2 (0-2) /LPF Independent Interpretation I performed an independent interpretation of an: EKG Interpretation: EKG sinus bradycardia and ventricular informing beats per minute, [place] interval 140, QTC 437, no ST elevation or depression Radiology Impression Discussion of test interpretation with radiology: I have reviewed the radiologist's reading. Radiologist Impression: FINDINGS: LUNG BASES: The visualized lung bases are unremarkable. LIVER, GALLBLADDER, AND BILIARY TREE: The noncontrast liver is normal in size and contour. No biliary ductal dilatation is present. The gallbladder is unremarkable with no evidence of radiopaque gallstones, gallbladder wall thickening, or obvious pericholecystic inflammatory changes. PANCREAS: No ductal dilatation. SPLEEN: Not enlarged. ADRENAL GLANDS: Thickening of the adrenal glands. KIDNEYS AND URETERS: The kidneys are normal in size, shape, and attenuation. No hydronephrosis, hydroureter, or calculi seen. No perinephric stranding. BLADDER: Unremarkable. GASTROINTESTINAL TRACT: Diffuse diverticular disease of the colon. There is wall thickening and submucosal edema of the distal transverse colon through the proximal descending colon with surrounding pericolonic inflammatory change. No small bowel obstruction. Appendix is within normal limits. ABDOMINAL WALL: No significant hernia is appreciated. LYMPH NODES: No bulky lymphadenopathy. VASCULAR: Normal caliber abdominal aorta. PELVIC VISCERA: Unremarkable. OSSEOUS STRUCTURES: Marked degenerative disc disease at L4-L5. CT/CT abdomen pelvis wo IV con IMPRESSION: Wall thickening and submucosal edema of the distal transverse colon through the proximal descending colon with surrounding pericolonic inflammatory change. There is diffuse colonic diverticulosis. Differential diagnosis includes acute diverticulitis versus acute colitis. Follow-up imaging after treatment is advised. Dictated By: Jacey Liu MD EXAMINATION: XR ABDOMEN KUB CLINICAL INDICATION: Abdominal pain. Constipation. COMPARISON: None available. TECHNIQUE: AP view of the abdomen. FINDINGS: No dilated air-filled loops of small bowel to suggest an obstructive process. Normal colonic stool burden. Small pelvic calcifications are likely vascular in nature. No acute osseous abnormality. Minimal degenerative changes of the spine. XR/XR KUB IMPRESSION: 1. Nonobstructing bowel gas pattern. 2. Normal colonic stool burden. Dictated By: Rizwan Pascual MD Medications Administered Discontinued Medications Generic Name Dose Route Start Last Admin Trade Name Freq PRN Reason Stop Dose Admin Morphine Sulfate 4 mg 07/15/23 13:42 07/15/23 13:56 Morphine Sulfate 4 Mg/Ml Cartridge IVPUSH 07/15/23 13:43 4 mg ONCE ONE Administration Protocol Potassium Chloride 40 meq 07/15/23 11:09 07/15/23 11:35 Potassium Chloride Er 20 Meq Tab.Er.Prt PO 07/15/23 11:10 40 meq ONCE ONE Administration Potassium Chloride 40 meq 07/15/23 15:11 07/15/23 15:15 Potassium Chloride Er 20 Meq Tab.Er.Prt PO 07/15/23 15:12 40 meq ONCE ONE Administration Discharge Plan Discharge Clinical Impression: Diverticulitis Patient Disposition: Home, Self-Care Instructions: Diverticulitis (ED) Additional Instructions: Your CT scan had concerns for diverticulitis/colitis. This is inflammation in your colon.This can be caused by bacteria. Your potassium was low. We replenished this with oral potassium, you refused additional testing to ensure that this is a normal level. Low potassium can be very dangerous and can lead to arrythmias and . Despite knowing this risk you refused additional testing. Please take prescribed antibiotic as directed. Finish the entire course even if you are feeling better. Drink plenty of fluids get plenty of rest. You may take ibuprofen or Tylenol as needed for pain. Stick to a bland diet, I am recommending liquid diet for the next 3 days. You may progress to a bland diet afterwards (rice, applesauce, toast). Follow-up with your primary care physician. If any new or worsening symptoms occur, including but not limited to fevers, chills, vomiting, abdominal pain, please return for re-evaluation. Prescriptions: New amoxicillin-pot clavulanate 875-125 mg tablet 1 tab PO Q8H 7 Days Qty: 21 0RF No Action amlodipine 5 mg tablet 5 mg PO DAILY Qty: 90 1RF fluticasone propionate [Flonase Allergy Relief] 50 mcg/actuation spray,suspension 1 spray intranasal DAILY 14 Days Qty: 100 0RF Rx Instructions: administer into each nostril omeprazole 20 mg capsule,delayed release(DR/EC) 20 mg PO DAILY Qty: 90 1RF atorvastatin 10 mg tablet 10 mg PO DAILY Qty: 90 1RF promethazine 25 mg tablet 25 mg PO Q6H PRN (Reason: for nausea/vomiting) Qty: 60 2RF alendronate 70 mg tablet 70 mg PO QWEEK 90 Days Qty: 13 1RF baclofen 10 mg tablet 10 mg PO TID Qty: 270 0RF lisinopril-hydrochlorothiazide 20-12.5 mg tablet 1 tab PO DAILY 90 Days Qty: 90 0RF ibuprofen 800 mg tablet 800 mg PO TID PRN (Reason: for fever) Qty: 90 1RF oxycodone 10 mg tablet 10 mg PO Q6H PRN (Reason: pain) 28 Days Qty: 112 0RF Rx Instructions: Partial Fill upon patient request. gabapentin 300 mg capsule 300 mg PO BEDTIME Qty: 30 2RF amoxicillin-pot clavulanate 875-125 mg tablet 1 tab PO BID 10 Days Qty: 20 0RF
[2023-07-15 10:29] LABS: MANUAL DIFF FLAG NO
[2023-07-15 10:30] LABS: Basophils Percent Auto 0.3 % (0-2); Eosinophils Absolute Auto 0.1 X10*3/uL (0.0-0.4); Eosinophils Percent Auto 0.7 % (0-4); Hematocrit 31.7 % (37.0-47.0); Hemoglobin 11.2 g/dl (12.0-16.0); Imm Gran Abs Auto 0.06 X10*3/uL (0.00-0.03); Imm Gran Pct Auto 0.4 % (0.0-0.4); Lymphocytes Absolute Auto 2.4 X10*3/uL (1.2-4.9); Lymphocytes Percent Auto 17.7 % (20-40); Mean Corpuscular HGB Conc 35.3 g/dl (31.0-35.0); Mean Corpuscular Hemoglobin 34.1 pg (27.0-33.0); Mean Corpuscular Volume 96.6 fL (80.0-98.0); Monocytes Absolute Auto 0.4 X10*3/uL (0.1-1.2); Monocytes Percent Auto 3.3 % (2-11); Neutrophils Absolute Auto 10.5 x10*3/uL (2.0-8.3); Neutrophils Percent Auto 77.6 % (45-73); Platelet Count 289 X10*3/uL (160-400); Red Blood Count 3.28 X10*6/uL (4.20-5.50); Red Cell Distribution Width 11.9 % (11.0-16.0); White Blood Count 13.5 X10*3/uL (4.8-10.8)
[2023-07-15 10:45] LABS: Alanine Aminotransferase 37 U/L (0-31); Albumin Level 3.8 g/dL (3.5-5.0); Alkaline Phosphatase 90 U/L (39-117); Anion Gap 14 (12-20); Aspartate Amino Transferase 34 U/L (5-31); Bilirubin Direct 0.2 mg/dL (0.0-0.5); Bilirubin Total 0.4 mg/dL (0.0-1.0); Blood Urea Nitrogen 17 mg/dL (9-16); Calcium 8.5 mg/dL (8.4-10.2); Carbon Dioxide 27 mmol/L (22-29); Chloride 104 mmol/L (96-108); Creatinine Clr Calc Pharmacy 75.5; Estimated Glomerular Filt Rate > 60; Glucose Random 87 mg/dL (60-115); Lipase 13 U/L (8-78); Magnesium 2.6 mg/dL (1.6-2.6); Potassium 2.6 mmol/L (3.3-5.1); Sodium 142 mmol/L (135-145); Total Protein 6.1 g/dL (6.5-8.0)
--- NOTE | 2023-07-15 10:55 | ECG_ITS ---
Test Reason : LOW POTASSIUM Blood Pressure : / mmHG Vent. Rate : 049 BPM Atrial Rate : 049 BPM P-R Int : 148 ms QRS Dur : 082 ms QT Int : 484 ms P-R-T Axes : 028 050 067 degrees QTc Int : 437 ms Sinus bradycardia Nonspecific T wave abnormality Anterior leads Abnormal ECG When compared with ECG of 29-NOV-2016 01:14, T wave inversion no longer evident in Lateral leads Referred By: Ila Casillas Electronically Signed By:SKIP DELATORRE MD
[2023-07-15] MEDS: Potassium Chloride ER 20 MEQ TAB.ER.PRT 40 MEQ PO ×2 (11:35→15:15)
[2023-07-15 11:38] VITALS: BP 165/66; PULSE 55; RESP 12; TEMP 36.9; O2SAT 98
--- NOTE | 2023-07-15 11:42 | PC.NURSE ---
alert and oriented, respirations even and unlabored. placed on surveillance monitor/ekg obtained due to low potassium. iv established, medicated per the MAR. denies any pain at this time, call [facility] within reach. warm blanket provided for patient.
[2023-07-15] MEDS: Morphine Sulfate 4 MG/ML CARTRIDGE IVPUSH (13:56)
[2023-07-15 13:59] VITALS: BP 149/71; PULSE 57; RESP 14; O2SAT 97
[2023-07-15 14:13] LABS: Appearance Urine Clear; Color Urine Yellow; Glucose Urine UA Negative (Negative); Leukocyte Esterase Urine Moderate (2+) (Negative); Nitrite Urine Negative (Negative); UMIC TRIGGER UACC YES; Urine Blood Negative (Negative); Urine Ketones 40 mg/dL (Negative); Urine Protein Negative (Neg-Trace)
[2023-07-15 14:24] LABS: Erythrocyte Sedimentation Rate 23 MM/HR (0-20)
[2023-07-15 14:30] LABS: Bacteria Urine Trace (None Seen); Hyaline Casts Urine 0-2 /LPF (0-2); UACC Culture Trigger YES
[2023-07-15 15:09] VITALS: BP 145/65; PULSE 50; RESP 20; O2SAT 97
--- NOTE | 2023-07-15 15:19 | PC.NURSE ---
patient educated on the need for repeat lab work to recheck her potassium. patient refusing stating that she is tired and hungry and just wants to go home. provider at bedside and aware of this, educated on importance of rechecking potassium level. patient still requesting to leave.
== END 2023-07-15 15:21 | disposition home or self-care (01) ==
PROVIDERS: Physician Assistant Medical; Emergency Provider Emergency Medicine; PCP Internal Medicine
DX: K57.32 Diverticulitis of large intestine without perforation or abscess without bleeding (principal); K59.00 Constipation, unspecified; R10.9 Unspecified abdominal pain; R00.1 Bradycardia, unspecified; Z87.891 Personal history of nicotine dependence; Z79.899 Other long term (current) drug therapy
CPT/HCPCS: 36415; 74018; 74176; 80048; 80076; 81001; 83690; 83735; 85025; 85652; 86140; 87086; 93005; 96374; 99284; 99285; J2270

== ENCOUNTER 2023-07-24 09:05 | Outpatient (AMB) | payer OTHER, SELFPAY ==
[2023-07-24 09:15] VITALS: BP 132/78; PULSE 73; O2SAT 98; BMI 21.0
--- NOTE | 2023-07-24 09:15 | MHC.PC.OV ---
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: No Accompanied by: Self / Same As Patient Allergies No Known Allergies [No Known Allergies*] Allergy (Verified 10/29/23 03:43) Medication List - Last Reconciled 07/24/23 by Bayron Wheeler MD alendronate 70 mg PO QWEEK 3 months amlodipine 5 mg PO DAILY amoxicillin-pot clavulanate 875-125 mg 1 tab PO Q8H 7 days amoxicillin-pot clavulanate 875-125 mg 1 tab PO BID 10 days atorvastatin 10 mg PO DAILY baclofen 10 mg PO TID fluticasone propionate 50 mcg/actuation (Flonase Allergy Relief) 1 spray intranasal DAILY 14 days gabapentin 300 mg PO BEDTIME ibuprofen 800 mg PO TID PRN lisinopril-hydrochlorothiazide 20-12.5 mg 1 tab PO DAILY 90 days omeprazole 20 mg PO DAILY oxycodone 10 mg PO Q6H PRN 28 days promethazine 25 mg PO Q6H PRN Tobacco use date assessed: 07/24/23 Dental Screening Dental Screen Date: 07/24/23 Did you have a dental visit in the last 12 months?: Yes Did you have a dental problem in the last 6 months where you did not have access to dental care?: No Was dental information given to patient?: Patient has dentist HPI Annual Exam HPI Details Patient comes in today for her annual physical examination She was seen at the ER about 10 days ago for diverticulitis - was experiencing increased lower abdominal pain and diarrhea/loose stools then States that she finished all of the prescribed Abx (Augmentin) that she was sent home with and that her abdominal pain has improved significantly although she still has some soft/loose stools at times; her diarrhea is also mostly resolving States that she currently feels okay She denies any fever, headaches or dizziness Denies any chest pains, no SOB No nausea/vomiting recently Denies any acute urinary symptoms States that her chronic low back pain remains adequately controlled on her current Rx Had her screening colonoscopy last done a couple of years ago on 09/29/[address] Poe - colonoscopy was reportedly normal and she was recommended to get a repeat colonoscopy in 10 years (2030) Had her gynecology exam and pap smear last done on 05/30/2023 She is scheduled for her annual mammogram next week [facility] Medical History Osteoporosis Depression Menopause Headache Bradycardia Postmenopausal vaginal bleeding Insomnia GERD without esophagitis Lumbar degenerative disc disease Pure hypercholesterolemia Benign essential hypertension HTN (hypertension) Surgical History History of colonoscopy (~09/29/20) Hx of tubal ligation History of esophagogastroduodenoscopy (EGD) H/O lumbar discectomy H/O hemorrhoidectomy Family History Mother Lung cancer Sister Colon cancer Sister Ovarian cancer Other Mental health problem Social History Household Members: Spouse and Children Housing: House Alcohol intake: current Alcohol intake frequency: holidays/special occasions only Patient Tobacco Use Status: Former Tobacco user Tobacco use type: Cigarette Cigarettes Per Day: 3 e-Cigarette/Vaping Use: Never Used service: No Current occupational status: employed Current occupation: [employer] Cognitive needs: No Hearing needs: No Vision needs: Yes Female Reproductive History Menstrual Age of Menarche: 15 Questionnaire PHQ-9 Over the last 2 weeks, how often have you been bothered by any of the following problems? 1. Little interest or pleasure in doing things: not at all 2. Feeling down, depressed, or hopeless: not at all 3. Trouble falling or staying asleep, or sleeping too much: not at all 4. Feeling tired or having little energy: not at all 5. Poor appetite or overeating: not at all 6. Feeling bad about yourself - or that you are a failure or have let yourself or your family down: not at all 7. Trouble concentrating on things, such as reading the newspaper or watching television: not at all 8. Moving or speaking so slowly that other people could have noticed. Or the opposite - being so fidgety or restless that you have been moving around a lot more than usual: not at all 9. Thoughts that you would be better off or of hurting yourself in some way: not at all Total score: 0 Depression Screening Interpretation: Negative Depression Screening Done: Yes [id number] - PHQ-9 Billing: Yes Source: Developed by Drs. Benjamní Chau, Miryam Fisher, Dangelo Dillon and colleagues, with an educational leopoldo from [employer]. Thrive Questionnaire Date Thrive assessed: 07/24/23 I am a: Patient What is your living situation today?: I have a steady place to live Within the past 12 months, did the food you bought not last and you didn't have the money to get more?: Never true Within the past 12 months, did you worry whether your food would run out before you got money to buy more?: Never true Do you have trouble paying for medicines?: No Do you have trouble getting transportation to medical appointments?: No Do you have trouble paying your heating and electricity bill?: No Do you have trouble taking care of your child, family member or friend?: No Do you have trouble with day-to-day activities such as bathing, preparing meals, shopping, managing finances, etc.?: No Are you currently unemployed and looking for a job?: No Are you interested in more education?: No Please select the resources that you would like help with: None Currently or been in a relationship where the following occur: no concerns reported AUDIT C Alcohol Use Questionnaire (AUDIT-C) 1. How often do you have a drink containing alcohol?: Never 2. How many drinks containing alcohol do you have on a typical day when you are drinking?: 1 or 2 3. How often do you have six or more drinks on one occasion?: Never Total Score: 0 Score Reviewed/Action Taken: Yes PAKO-7 AMB Questionnaire PAKO-7 Date PAKO - 7 assessed: 07/24/23 Feeling nervous, anxious, or on edge: 0 = Not at all Not being able to stop or control worryin = Not at all Worrying too much about different things: 0 = Not at all Trouble relaxin = Not at all Being so restless that it is hard to sit still: 0 = Not at all Becoming easily annoyed or irritable: 0 = Not at all Feeling afraid as if something awful might happen: 0 = Not at all Total PAKO-7 score (0-4 normal; 5-9 mild; 10-14 moderate; 15-21 severe): 0 Source: Developed by Drs. Benjamín Chau, Miryam Fisher, Dangelo Dillon and colleagues, with an educational leopoldo from [employer]. Review of Systems Const Denies chills, Reports difficulty sleeping, Denies fatigue, Denies fever(s) and Denies headache(s) Eyes Denies blurry vision, Denies change in vision, Denies irritation and Denies itchy eyes ENT Denies dysphagia, Denies dizziness, Denies otalgia, Denies headache(s), Denies neck pain, Denies odynophagia and Denies sore throat Card Denies chest pain, Denies palpitations and Denies dyspnea Resp Denies cough, Denies dyspnea and Denies wheezing GI Denies abdominal pain, Denies hematochezia, Denies constipation, Denies dysphagia, Denies heartburn, Reports loose stools (but gradually improving/resolving), Denies nausea, Denies odynophagia and Denies vomiting Denies difficulty voiding, Denies nocturia, Denies dysuria and Denies urinary urgency Musc Reports back pain (over the lower back - chronic) and Denies neck pain Skin/Breast Denies rash Neuro Denies dizziness and Denies headache(s) Psych Denies anxiety and Denies depression Endo Denies fatigue and Denies palpitations Jeffery/Lymph Denies easy bruising Aller/Immun Denies itchy eyes and Denies wheezing Physical exam (Primary Care) Vital Signs: Last Vital Signs Pulse 73 07/24/23 09:15 BP 132/78 07/24/23 09:15 Pulse Ox 98 07/24/23 09:15 Oxygen Delivery Method Room Air 07/24/23 09:15 BMI result Body Mass Index 21.0 Tobacco/Smoking Status: Tobacco use Status Tobacco use date assessed 07/24/23 07/24/23 09:20 Patient Tobacco Use Status Former Tobacco user 07/24/23 09:20 Tobacco use type Cigarette 07/24/23 09:20 e-Cigarette/Vaping Use Never Used 07/24/23 09:20 PHQ-9: PHQ-9 Score PHQ-9: Total score 0 07/24/23 10:28 Depression Screening Interpretation: Negative Thrive Assessment: Date of Thrive Assessment Date Thrive assessed 07/24/23 07/24/23 09:20 Currently or been in a relationship where the following occur: no concerns reported Const General: no acute distress and alert Orientation/consciousness: patient oriented x3 HENMT Head: Yes normocephalic and Yes atraumatic Ears: TM's normal bilaterally and EAC's normal General nose exam: No nasal discharge present Face and sinus: Yes normal facial exam and Yes sinuses nontender Teeth and gingiva: dentition normal Throat: Yes posterior oropharynx normal and Yes tonsils normal (no TP congestion) Eyes Eyelids: Yes eyelids normal Conjunctivae: conjunctivae normal Pupils: Equal, round and reactive pupils present EOM: EOMs intact bilaterally Neck Neck: Yes no lymphadenopathy and Yes supple Thyroid: Thyroid normal Resp Auscultation: clear to auscultation bilaterally, no rales and no wheezes Cardio Rate: regular rate Rhythm: regular rhythm Heart sounds: no murmurs GI Palpation (GI): Soft to palpation, nontender and No hepatosplenomegaly present Auscultation: normal bowel sounds General: Yes no CVA tenderness Back/Spine/Pelvis Back: no CVA tenderness Thoracic/Lumbar Spine: lumbar spinal tenderness Skin Lesions: no lesions Rashes: no rashes Neuro General: patient oriented x3, moves all extremities, no focal motor deficits and CN's II-XI intact bilaterally Cranial nerves: Yes Equal, round and reactive pupils present Cognition (Neuro): normal cognition Gait exam (Neuro): Normal gait present Extrem General: Yes no clubbing, cyanosis or edema Results Reviewed Results Reviewed: Laboratory Tests 07/15/23 07/15/23 07/15/23 10:25 10:25 14:03 WBC 13.5 H Hgb 11.2 L Hct 31.7 L Plt Count 289 ESR 23 H Sodium 142 Potassium 2.6 L D Creatinine 0.62 Estimated GFR > 60 Random Glucose 87 Calcium 8.5 D Magnesium 2.6 AST 34 H ALT 37 H C-Reactive Protein 3.00 H Lipase 13 Ur Specific [place] 1.020 Urine Protein Negative Urine Glucose (UA) Negative Urine Blood Negative Urine Nitrite Negative Ur Leukocyte Esterase 07/15/23 14:03 WBC Hgb Hct Plt Count ESR Sodium Potassium Creatinine Estimated GFR Random Glucose Calcium Magnesium AST ALT C-Reactive Protein Lipase Ur Specific [place] Urine Protein Urine Glucose (UA) Urine Blood Urine Nitrite Ur Leukocyte Esterase Moderate (2+) H Assessment and Plan Assessment & Plan (1) Annual physical exam: Code(s): Z00.00 - Encounter for general adult medical examination without abnormal findings Plan: Check labs - advised that her labs done at the ER recently showed (+) leucocytosis and hypokalemia as well as slight elevation of her LFTs but all of these are likely related to her diverticulitis at the time and that we will recheck these now to ensure that they have all improved or resolved She is up-to-date with her cancer screenings (colonoscopy and pap smear) and is scheduled for her annual mammogram next week (2) Osteoporosis: Code(s): M81.0 - Age-related osteoporosis without current pathological fracture Qualifiers: Osteoporosis type: age-related Presence of current pathological fracture: without current pathological fracture Qualified Code(s): M81.0 - Age-related osteoporosis without current pathological fracture Plan: BMD was last done in March 2021 (this was her index screen, which already showed osteoporosis) Continue Alendronate 70 mg Q week as instructed Reinforced fall precautions and is encouraged to continue to try to stay active and exercise regularly Will send her for repeat BMD for follow up and to assess efficacy of her current Tx regimen (3) Benign essential hypertension: Code(s): I10 - Essential (primary) hypertension Plan: Reinforced low-sodium diet - goal is systolic BP of at least 130 mm or less Continue Lisinopril-Hydrochlorothiazide 20-12.5 mg once a day (in AM) and Amlodipine 5 mg daily (in PM) (4) Pure hypercholesterolemia: Code(s): E78.00 - Pure hypercholesterolemia, unspecified Plan: Patient is advised that she has not had her fasting lipid profile rechecked since October 2021 and should get her labs done ELIE Reinforced low cholesterol diet Continue Atorvastatin 10 mg QD Will recheck her labs and fasting lipids again in 3 months for follow-up (5) Lumbar degenerative disc disease: Code(s): M51.36 - Other intervertebral disc degeneration, lumbar region Plan: Patient is still c/o (chronic) low back pain and frequent radiation of pain down her left leg but states that her current Rx help keep her symptoms manageable EMG and NCV done in December 2021 revealed (+) chronic bilateral lower lumbar radiculopathy with no evidence of acute pathology. Study was otherwise unremarkable with no evidence of any significant neuropathy Reinforced activity and weight lifting restrictions to minimize aggravating her back pain Continue Oxycodone 10 mg every 6 hours as needed, Baclofen 10 mg TID PRN, Gabapentin 300 mg Q HS and Ibuprofen 800 mg 3 times a day with food She was previously sent for repeat lumbar spine x-rays for further evaluation of her recent increasing low back pain as has been several years now since she had any imaging studies done on her lower back but she did not get them done (6) GERD without esophagitis: Code(s): K21.9 - Gastro-esophageal reflux disease without esophagitis Plan: Dietary restrictions reinforced Continue Omeprazole 20 mg QD (7) Insomnia: Code(s): G47.00 - Insomnia, unspecified Qualifiers: Insomnia type: unspecified Qualified Code(s): G47.00 - Insomnia, unspecified Plan: Sleep hygiene reinforced Trazodone has not helped much and she could not tolerate Zolpidem (nightmares) (8) Depression: Code(s): F32.A - Depression, unspecified Qualifiers: Depression Type: major depressive disorder Major depression recurrence: recurrent Active/Remission status: currently active Major depression episode severity: unspecified Qualified Code(s): F33.9 - Major depressive disorder, recurrent, unspecified Plan: Was on Duloxetine 30 mg QD in the past but she appears to have self-discontinued this at some point - unclear when States that she is currently doing better with her mood and does not feel that she needs to take any Rx additionally at this time (9) Smoker: Code(s): F17.200 - Nicotine dependence, unspecified, uncomplicated Plan: Counseled again on smoking cessation Plan Follow up in 3 months Orders: Orders Complete Blood Count Auto Diff 07/25/23 Z00.00 - Encounter for general adult medical examination without abnormal findings, K57.92 - Diverticulitis of intestine, part unspecified, without perforation or abscess without bleeding Lipid Panel 07/25/23 E78.00 - Pure hypercholesterolemia, unspecified, Z00.00 - Encounter for general adult medical examination without abnormal findings Comprehensive Elizabeth. Panel Fast 3 Months E78.00 - Pure hypercholesterolemia, unspecified Comprehensive Elizabeth. Panel Fast 07/25/23 E78.00 - Pure hypercholesterolemia, unspecified, Z00.00 - Encounter for general adult medical examination without abnormal findings, E87.6 - Hypokalemia TSH reflex Free T4 07/25/23 E78.00 - Pure hypercholesterolemia, unspecified, Z00.00 - Encounter for general adult medical examination without abnormal findings UA CC w/rflx Micro + Cult 07/25/23 R30.0 - Dysuria, Z00.00 - Encounter for general adult medical examination without abnormal findings Vitamin D 25-OH Total 07/25/23 E55.9 - Vitamin D deficiency, unspecified, Z00.00 - Encounter for general adult medical examination without abnormal findings XR DEXA axial skeleton 07/24/23 Z78.0 - Asymptomatic menopausal state, M81.0 - Age-related osteoporosis without current pathological fracture Lipid Panel 3 Months E78.00 - Pure hypercholesterolemia, unspecified Coding Level of Care Code Est Pt Prev Care 40-64y([id number]) Diagnoses Annual physical exam Z00.00 Age-related osteoporosis without current pathological fracture M81.0 Osteoporosis type: age-related Presence of current pathological fracture: without current pathological fracture Benign essential hypertension I10 Pure hypercholesterolemia E78.00 Lumbar degenerative disc disease M51.36 GERD without esophagitis K21.9 Insomnia, unspecified type G47.00 Insomnia type: unspecified Episode of recurrent major depressive disorder, unspecified depression episode severity F33.9 Depression Type: major depressive disorder Major depression recurrence: recurrent Active/Remission status: currently active Major depression episode severity: unspecified Smoker F17.200
== END 2023-07-24 10:19 | disposition home or self-care (01) ==
PROVIDERS: Visit Provider Internal Medicine
DX: Z00.00 Encounter for general adult medical examination without abnormal findings (principal); M81.0 Age-related osteoporosis without current pathological fracture; I10 Essential (primary) hypertension; F33.9 Major depressive disorder, recurrent, unspecified; E78.00 Pure hypercholesterolemia, unspecified; M51.36 Other intervertebral disc degeneration, lumbar region; K21.9 Gastro-esophageal reflux disease without esophagitis; G47.00 Insomnia, unspecified; F17.210 Nicotine dependence, cigarettes, uncomplicated
CPT/HCPCS: 99396

== ENCOUNTER 2023-07-25 08:26 | Outpatient (REF) | payer OTHER, SELFPAY ==
[2023-07-25 08:42] LABS: MANUAL DIFF FLAG NO
[2023-07-25 10:26] LABS: Basophils Percent Auto 0.3 % (0-2); Eosinophils Absolute Auto 0.2 X10*3/uL (0.0-0.4); Eosinophils Percent Auto 1.9 % (0-4); Hematocrit 37.4 % (37.0-47.0); Hemoglobin 12.8 g/dl (12.0-16.0); Imm Gran Abs Auto 0.04 X10*3/uL (0.00-0.03); Imm Gran Pct Auto 0.4 % (0.0-0.4); Lymphocytes Absolute Auto 3.2 X10*3/uL (1.2-4.9); Lymphocytes Percent Auto 34.5 % (20-40); Mean Corpuscular HGB Conc 34.2 g/dl (31.0-35.0); Mean Corpuscular Hemoglobin 33.8 pg (27.0-33.0); Mean Corpuscular Volume 98.7 fL (80.0-98.0); Mean Platelet Volume 11.5 fL (9.4-12.3); Monocytes Absolute Auto 0.4 X10*3/uL (0.1-1.2); Monocytes Percent Auto 4.5 % (2-11); Neutrophils Absolute Auto 5.3 x10*3/uL (2.0-8.3); Neutrophils Percent Auto 58.4 % (45-73); Platelet Count 387 X10*3/uL (160-400); Red Blood Count 3.79 X10*6/uL (4.20-5.50); Red Cell Distribution Width 11.6 % (11.0-16.0); White Blood Count 9.1 X10*3/uL (4.8-10.8)
[2023-07-25 10:27] LABS: Appearance Urine Clear; Color Urine Yellow; Glucose Urine UA Negative (Negative); Leukocyte Esterase Urine Trace (Negative); Nitrite Urine Negative (Negative); PH 5.5 (5.0-9.0); Specific Gravity - Urine >= 1.030 (1.005-1.025); UMIC TRIGGER UACC YES; Urine Blood Negative (Negative); Urine Ketones Negative (Negative); Urine Protein Negative (Neg-Trace)
[2023-07-25 10:32] LABS: Bacteria Urine None Seen (None Seen); WBC Urine 0-5 /HPF (0-5)
[2023-07-25 11:00] LABS: Alanine Aminotransferase 20 U/L (0-31); Albumin Level 4.5 g/dL (3.5-5.0); Alkaline Phosphatase 75 U/L (39-117); Anion Gap 15 (12-20); Aspartate Amino Transferase 18 U/L (5-31); Bilirubin Total 0.3 mg/dL (0.0-1.0); Blood Urea Nitrogen 24 mg/dL (9-16); Calcium 9.7 mg/dL (8.4-10.2); Carbon Dioxide 28 mmol/L (22-29); Chloride 103 mmol/L (96-108); Cholesterol 211 mg/dL (<200); Estimated Glomerular Filt Rate > 60; Glucose Fasting 85 mg/dL (60-99); HDL Cholesterol 35 mg/dL (>40); LDL Cholesterol Calculated 123 mg/dL (<100); Potassium 3.7 mmol/L (3.3-5.1); Sodium 142 mmol/L (135-145); Triglycerides 265 mg/dL (<150)
[2023-07-25 11:19] LABS: Vitamin D 25-OH Total 49.6 ng/mL (>30)
== END 2023-07-25 08:27 | disposition home or self-care (01) ==
LOC: HO.LAB 08:26
PROVIDERS: PCP Internal Medicine; Visit Provider Internal Medicine
DX: Z00.00 Encounter for general adult medical examination without abnormal findings (principal); I10 Essential (primary) hypertension; K57.92 Diverticulitis of intestine, part unspecified, without perforation or abscess without bleeding; E78.00 Pure hypercholesterolemia, unspecified; E87.6 Hypokalemia; R30.0 Dysuria; E55.9 Vitamin D deficiency, unspecified
CPT/HCPCS: 36415; 80053; 80061; 81001; 82306; 84443; 85025

== ENCOUNTER 2023-07-31 07:28 | Outpatient (REF) | payer OTHER, SELFPAY ==
--- NOTE | ~2023-07-31 | MM_ITS ---
EXAMINATION: MM SCREENING DIGITAL BREAST TOMOSYNTHESIS, BILATERAL CLINICAL INFORMATION: Screening. Asymptomatic. COMPARISON: Mammography: This study is compared with prior exams dating back to 2017. TECHNIQUE: Digital breast tomosynthesis is performed in both the craniocaudal and mediolateral oblique views along with computer-aided detection (CAD). Synthesized 2D images are generated from the tomosynthesis. FINDINGS: There are scattered areas of fibroglandular density (ACR BI-RADS breast composition Category b). There are no significant masses, abnormal calcifications, or other abnormalities. There is a tissue marker in the right breast from prior benign percutaneous biopsy. MM/MM tomosynthesis screening BI IMPRESSION: No mammographic evidence of malignancy. ASSESSMENT: BI-RADS BI-RADS 1 - Negative RECOMMENDATION: Routine annual mammography screening. 1 year F/U This examination should not preclude the clinical evaluation of a suspicious palpable abnormality. This patient's information was entered into a reminder system with a target due date for their next mammogram.
== END 2023-07-31 07:29 | disposition home or self-care (01) ==
LOC: HO.MAMMO 07:28
PROVIDERS: PCP Internal Medicine; Visit Provider Internal Medicine
DX: Z12.31 Encounter for screening mammogram for malignant neoplasm of breast (principal)
CPT/HCPCS: 77063; 77067

== ENCOUNTER → 2023-07-31 07:30 | Outpatient (BNV) | payer OTHER, SELFPAY | PROVIDERS: PCP Internal Medicine; Visit Provider Radiology Diagnostic Radiology | DX: Z12.31 Encounter for screening mammogram for malignant neoplasm of breast (principal) | CPT/HCPCS: 77063; 77067 ==

== ENCOUNTER 2023-09-04 08:35 | Outpatient (REF) | payer OTHER, SELFPAY ==
--- NOTE | ~2023-09-04 | MM_ITS ---
EXAMINATION: BONE DENSITOMETRY CLINICAL INDICATION: Menopause. COMPARISON: Baseline BD dated 04/07/2021. TECHNIQUE: Using a [employer] DXA System (software version: 13.1) manufactured by [employer], dual-energy x-ray absorptiometry was performed of the lumbar spine and left hip. The images are of good technical quality. Summary results are attached. FINDINGS: LEFT FEMUR, NECK: Current: BMD 0.728 g/cm2, Z-score -0.8, T-score -2.2, osteopenia. Baseline: BMD 0.691 g/cm2. LEFT FEMUR, TOTAL: Current: BMD 0.809 g/cm2, Z-score -0.4, T-score -1.6, osteopenia, 9.3% increase from baseline (<5% change is not significant). Baseline: BMD 0.740 g/cm2. AP SPINE L1-L3 (excluding L4): The data of L1-L4 has been changed to exclude the L4 vertebral body, because degenerative sclerosis at this level may cause overestimation of lumbar spine density. Current: BMD 0.891 g/cm2, Z-score -0.8, T-score -2.3, osteopenia, 0.3% increase from baseline (<5% change is not significant). Baseline: BMD 0.888 g/cm2. IDENTIFIED RISK FACTORS: Menopause, anticonvulsant, recurrent falls, rheumatoid arthritis, tobacco use (current smoker). HISTORY OF FRACTURE: None listed. MEDICATIONS: Calcium or multivitamin. Vitamin D, bisphosphonate. MM/XR DEXA axial skeleton IMPRESSION: 1. DIAGNOSIS: Osteopenia based on the lowest T-score value of -2.3 in the lumbar spine applying World Health Organization criteria. 2. 10-YEAR FRACTURE RISK PREDICTION, FRAX: Not performed in this patient on estrogen or bone building treatments. 3. Treatment Recommendations: NOF guidelines recommend consideration for treatment in postmenopausal women and men age 50 and older presenting with the following: -A hip or vertebral (clinical or morphometric) fracture. -T-score less than or equal to -2.5 at the femoral neck or spine after appropriate evaluation to exclude secondary causes. -Low bone mass at the hip or spine and a 10-year fracture probability by FRAX of greater than or equal to 3% for hip fracture or greater than or equal to 20% for major osteoporotic fracture based on the [place] adapted WHO algorithm. 4. Other Recommendations: All treatment decisions require clinical judgment and consideration of individual patient factors, including patient preferences, comorbidities, previous drug use, risk factors not captured in the FRAX model (e.g. frailty, falls, vitamin D deficiency, increased bone turnover, interval significant decline in bone density) and possible under or overestimation of fracture risk by FRAX. Additional medical evaluation for secondary cause of low bone mineral density may be appropriate. FUTURE SCAN RECOMMENDATION: People with diagnosed cases of osteoporosis or at high risk for fracture should have regular bone mineral density tests. For patients eligible for Medicare, routine testing is allowed once every 2 years. The testing frequency can be increased to one year for patients who have rapidly progressing disease, those who are receiving or discontinuing medical therapy to restore bone mass, or have additional risk factors.
== END 2023-09-04 08:36 | disposition home or self-care (01) ==
LOC: HO.MAMMO 08:35
PROVIDERS: PCP Internal Medicine; Visit Provider Internal Medicine
DX: Z13.820 Encounter for screening for osteoporosis (principal); Z78.0 Asymptomatic menopausal state; M81.0 Age-related osteoporosis without current pathological fracture
CPT/HCPCS: 77080

== ENCOUNTER 2023-10-28 16:34 | Outpatient (AMB) | payer OTHER, SELFPAY ==
[2023-10-28 17:09] VITALS: BP 122/80; PULSE 58; O2SAT 97; BMI 20.7
--- NOTE | 2023-10-28 17:09 | MHC.PC.OV ---
Vital Signs 10/28/23 17:09 Height 5 ft 1 in Weight 109 lb 8 oz BMI 20.7 BP 122/80 Blood Pressure Location Lt brachial Position Sitting Pulse 58 Pulse Source Pulse Oximeter Pulse Oximetry (%) 97 Oxygen Delivery Method Room Air Intake Visit Reasons: hyperlipidemia, anemia, osteoporosis, lumbar DDD [employer] Technician Required: No Accompanied by: Self / Same As Patient Allergies No Known Allergies [No Known Allergies*] Allergy (Verified 10/29/23 03:43) Medication List - Last Reconciled 10/29/23 by Bayron Wheeler MD alendronate 70 mg PO QWEEK 3 months amlodipine 5 mg PO DAILY atorvastatin 10 mg PO DAILY baclofen 10 mg PO TID fluticasone propionate 50 mcg/actuation (Flonase Allergy Relief) 1 spray intranasal DAILY 14 days gabapentin 300 mg PO BEDTIME ibuprofen 800 mg PO TID PRN lisinopril-hydrochlorothiazide 20-12.5 mg 1 tab PO DAILY 90 days omeprazole 20 mg PO DAILY oxycodone 10 mg PO Q6H PRN 28 days promethazine 25 mg PO Q6H PRN Tobacco use date assessed: 10/28/23 Dental Screening Dental Screen Date: 10/28/23 Did you have a dental visit in the last 12 months?: Yes Did you have a dental problem in the last 6 months where you did not have access to dental care?: No Was dental information given to patient?: Patient has dentist HPI hyperlipidemia, anemia, osteoporosis, lumbar DDD HPI Details Patient comes in today for her follow-up visit States that she feels okay She denies any headaches or dizziness Denies any chest pains, no shortness of breath No nausea /vomiting, no abdominal pain No change in bowel habits noted States that her chronic low back pain and joint pains remain adequately controlled on her current medications - will need her oxycodone Rx refilled She has no follow-up labs done recently - labs were last done in mid July 2023 [facility] Medical History Osteoporosis Depression Menopause Headache Bradycardia Postmenopausal vaginal bleeding Insomnia GERD without esophagitis Lumbar degenerative disc disease Pure hypercholesterolemia Benign essential hypertension HTN (hypertension) Surgical History History of colonoscopy (~09/29/20) Hx of tubal ligation History of esophagogastroduodenoscopy (EGD) H/O lumbar discectomy H/O hemorrhoidectomy Family History Mother Lung cancer Sister Colon cancer Sister Ovarian cancer Other Mental health problem Social History Household Members: Spouse and Children Housing: House Alcohol intake: current Alcohol intake frequency: holidays/special occasions only Patient Tobacco Use Status: Former Tobacco user Tobacco use type: Cigarette Cigarettes Per Day: 3 e-Cigarette/Vaping Use: Never Used service: No Current occupational status: employed Current occupation: [employer] Cognitive needs: No Hearing needs: No Vision needs: Yes Female Reproductive History Menstrual Age of Menarche: 15 Questionnaire PHQ-9 Over the last 2 weeks, how often have you been bothered by any of the following problems? 1. Little interest or pleasure in doing things: not at all 2. Feeling down, depressed, or hopeless: not at all 3. Trouble falling or staying asleep, or sleeping too much: not at all 4. Feeling tired or having little energy: not at all 5. Poor appetite or overeating: not at all 6. Feeling bad about yourself - or that you are a failure or have let yourself or your family down: not at all 7. Trouble concentrating on things, such as reading the newspaper or watching television: not at all 8. Moving or speaking so slowly that other people could have noticed. Or the opposite - being so fidgety or restless that you have been moving around a lot more than usual: not at all 9. Thoughts that you would be better off or of hurting yourself in some way: not at all Total score: 0 Depression Screening Interpretation: Negative Depression Screening Done: Yes 92730 - PHQ-9 Billing: Yes Source: Developed by Drs. Benjamín Chau, Miryam Fisher, Dangelo Dillon and colleagues, with an educational leopoldo from [employer]. Thrive Questionnaire Date Thrive assessed: 10/28/23 I am a: Patient What is your living situation today?: I have a steady place to live Within the past 12 months, did the food you bought not last and you didn't have the money to get more?: Never true Within the past 12 months, did you worry whether your food would run out before you got money to buy more?: Never true Do you have trouble paying for medicines?: No Do you have trouble getting transportation to medical appointments?: No Do you have trouble paying your heating and electricity bill?: No Do you have trouble taking care of your child, family member or friend?: No Do you have trouble with day-to-day activities such as bathing, preparing meals, shopping, managing finances, etc.?: No Are you currently unemployed and looking for a job?: No Are you interested in more education?: No Please select the resources that you would like help with: None Currently or been in a relationship where the following occur: no concerns reported THRIVE Score: 0 AUDIT C Alcohol Use Questionnaire (AUDIT-C) 1. How often do you have a drink containing alcohol?: Never 2. How many drinks containing alcohol do you have on a typical day when you are drinking?: 1 or 2 3. How often do you have six or more drinks on one occasion?: Never Total Score: 0 Score Reviewed/Action Taken: Yes PAKO-7 AMB Questionnaire PAKO-7 Date PAKO - 7 assessed: 10/28/23 Feeling nervous, anxious, or on edge: 0 = Not at all Not being able to stop or control worryin = Not at all Worrying too much about different things: 0 = Not at all Trouble relaxin = Not at all Being so restless that it is hard to sit still: 0 = Not at all Becoming easily annoyed or irritable: 0 = Not at all Feeling afraid as if something awful might happen: 0 = Not at all Total PAKO-7 score (0-4 normal; 5-9 mild; 10-14 moderate; 15-21 severe): 0 Source: Developed by Drs. Benjamín Chau, Miryam Fisher, Dangelo Dillon and colleagues, with an educational leopoldo from [employer]. Review of Systems Const Denies chills, Reports difficulty sleeping, Denies fatigue, Denies fever(s) and Denies headache(s) ENT Denies dysphagia, Denies dizziness, Denies otalgia, Denies headache(s), Denies neck pain, Denies odynophagia and Denies sore throat Card Denies chest pain, Denies palpitations and Denies dyspnea Resp Denies cough, Denies dyspnea and Denies wheezing GI Denies abdominal pain, Denies constipation, Denies dysphagia, Denies heartburn, Denies diarrhea, Denies loose stools, Denies nausea, Denies odynophagia and Denies vomiting Denies difficulty voiding, Denies nocturia, Denies dysuria and Denies urinary urgency Musc Reports back pain (over the lower back - chronic) and Denies neck pain Skin/Breast Denies rash Neuro Denies dizziness and Denies headache(s) Psych Denies anxiety and Denies depression Endo Denies fatigue and Denies palpitations Jeffery/Lymph Denies easy bruising Aller/Immun Denies wheezing Physical exam (Primary Care) Vital Signs: Last Vital Signs Pulse 58 10/28/23 17:09 BP 122/80 10/28/23 17:09 Pulse Ox 97 10/28/23 17:09 Oxygen Delivery Method Room Air 10/28/23 17:09 BMI result Body Mass Index 20.7 Tobacco/Smoking Status: Tobacco use Status Tobacco use date assessed 10/28/23 10/28/23 17:13 Patient Tobacco Use Status Former Tobacco user 10/28/23 17:13 Tobacco use type Cigarette 10/28/23 17:13 e-Cigarette/Vaping Use Never Used 10/28/23 17:13 PHQ-9: PHQ-9 Score PHQ-9: Total score 0 10/29/23 04:34 Depression Screening Interpretation: Negative Thrive Assessment: Date of Thrive Assessment Date Thrive assessed 10/28/23 10/28/23 17:13 Currently or been in a relationship where the following occur: no concerns reported Const General: no acute distress and alert HENMT Ears: TM's normal bilaterally Throat: Yes posterior oropharynx normal and Yes tonsils normal (no TP congestion) Neck Neck: Yes no lymphadenopathy and Yes supple Thyroid: Thyroid normal Resp Auscultation: clear to auscultation bilaterally, no rales and no wheezes Cardio Rate: regular rate Rhythm: regular rhythm Heart sounds: no murmurs GI Palpation (GI): Soft to palpation and nontender Auscultation: normal bowel sounds General: Yes no CVA tenderness Back/Spine/Pelvis Back: no CVA tenderness Thoracic/Lumbar Spine: lumbar spinal tenderness Skin Rashes: no rashes Extrem General: Yes no clubbing, cyanosis or edema Results Reviewed Results Reviewed: Laboratory Tests 07/25/23 07/25/23 08:35 08:40 WBC 9.1 Hgb 12.8 Hct 37.4 Plt Count 387 D Sodium 142 Potassium 3.7 D Creatinine 0.67 Estimated GFR > 60 Fasting Glucose 85 Calcium 9.7 D AST 18 ALT 20 Triglycerides 265 H Cholesterol 211 H LDL Cholesterol, Calc 123 H HDL Cholesterol 35 L 25-OH Vitamin D Total 49.6 TSH 0.70 Ur Specific [place] >= 1.030 H Urine Protein Negative Urine Glucose (UA) Negative Urine Blood Negative Urine Nitrite Negative Ur Leukocyte Esterase Trace H Assessment and Plan Assessment & Plan (1) Osteoporosis: Code(s): M81.0 - Age-related osteoporosis without current pathological fracture Qualifiers: Osteoporosis type: age-related Presence of current pathological fracture: without current pathological fracture Qualified Code(s): M81.0 - Age-related osteoporosis without current pathological fracture Plan: Repeat BMD done on 09/04/2023 revealed (+) osteopenia based on the lowest T-score value of -2.3 in the lumbar spine applying World Health Organization criteria She is advised that her BMD has increased by 9.3% from baseline in the left femur and is unchanged in the lumbar spine Her index BMD done in March 2021 showed (+) osteoporosis based on the lowest T-score value of -2.5 in the femoral neck Continue Alendronate 70 mg Q week as instructed Reinforced fall precautions and she is encouraged to continue to try to stay active and exercise regularly (2) Pure hypercholesterolemia: Code(s): E78.00 - Pure hypercholesterolemia, unspecified Plan: Results of her labs done back in July 2023 reviewed and discussed with patient - she is advised that her cholesterol numbers back then were elevated and have increased from when they were previously checked in October 2021 Reinforced low cholesterol diet Continue Atorvastatin 10 mg QD Will recheck her fasting lipids and labs in 3 months for follow-up - patient is advised that we may need to increase the dose of her Atorvastatin if her cholesterol numbers do not show any significant improvement over the next few months (3) Benign essential hypertension: Code(s): I10 - Essential (primary) hypertension Plan: Reinforced low-sodium diet - goal is systolic BP of at least 130 mm or less Continue Lisinopril-Hydrochlorothiazide 20-12.5 mg once a day (in AM) and Amlodipine 5 mg daily (in PM) (4) Lumbar degenerative disc disease: Code(s): M51.36 - Other intervertebral disc degeneration, lumbar region Plan: Patient is still c/o (chronic) low back pain and frequent radiation of pain down her left leg but states that her current Rx help keep her symptoms manageable EMG and NCV done in December 2021 revealed (+) chronic bilateral lower lumbar radiculopathy with no evidence of acute pathology. Study was otherwise unremarkable with no evidence of any significant neuropathy Reinforced activity and weight lifting restrictions to minimize aggravating her back pain Continue Oxycodone 10 mg every 6 hours as needed (Rx refilled), Baclofen 10 mg TID PRN, Gabapentin 300 mg Q HS and Ibuprofen 800 mg 3 times a day with food She was previously sent for repeat lumbar spine x-rays for further evaluation of her recent increasing low back pain as has been several years now since she had any imaging studies done on her lower back but she did not get them done (5) GERD without esophagitis: Code(s): K21.9 - Gastro-esophageal reflux disease without esophagitis Plan: Dietary restrictions reinforced Continue Omeprazole 20 mg QD (6) Insomnia: Code(s): G47.00 - Insomnia, unspecified Qualifiers: Insomnia type: unspecified Qualified Code(s): G47.00 - Insomnia, unspecified Plan: Sleep hygiene reinforced Trazodone has not helped much and she could not tolerate Zolpidem (nightmares) (7) Depression: Code(s): F32.A - Depression, unspecified Qualifiers: Depression Type: major depressive disorder Major depression recurrence: recurrent Active/Remission status: currently active Major depression episode severity: unspecified Qualified Code(s): F33.9 - Major depressive disorder, recurrent, unspecified Plan: Was on Duloxetine 30 mg QD in the past but she appears to have self-discontinued this at some point - unclear when States that she is currently doing better with her mood and does not think she needs to take any Rx additionally at this time (8) Smoker: Code(s): F17.200 - Nicotine dependence, unspecified, uncomplicated Plan: Counseled again on smoking cessation Plan Follow up in 3 months Orders: Orders Comprehensive [place]. Panel Fast 3 Months E78.00 - Pure hypercholesterolemia, unspecified Vitamin D 25-OH Total 3 Months E55.9 - Vitamin D deficiency, unspecified UA CC w/rflx Micro + Cult 3 Months R30.0 - Dysuria Lipid Panel 3 Months E78.00 - Pure hypercholesterolemia, unspecified TSH reflex Free T4 3 Months E78.00 - Pure hypercholesterolemia, unspecified Medications: Refilled oxycodone Partial Fill upon patient request. 10 mg PO Q6H PRN 112 tabs 0RF pain 28 days Coding Level of Care Code Est Pt Level 4 (66495) Diagnoses Age-related osteoporosis without current pathological fracture M81.0 Osteoporosis type: age-related Presence of current pathological fracture: without current pathological fracture Pure hypercholesterolemia E78.00 Benign essential hypertension I10 Lumbar degenerative disc disease M51.36 GERD without esophagitis K21.9 Insomnia, unspecified type G47.00 Insomnia type: unspecified Episode of recurrent major depressive disorder, unspecified depression episode severity F33.9 Depression Type: major depressive disorder Major depression recurrence: recurrent Active/Remission status: currently active Major depression episode severity: unspecified Smoker F17.200
== END 2023-10-28 17:48 | disposition home or self-care (01) ==
PROVIDERS: PCP Internal Medicine; Visit Provider Internal Medicine
DX: M81.0 Age-related osteoporosis without current pathological fracture (principal); E78.00 Pure hypercholesterolemia, unspecified; F33.9 Major depressive disorder, recurrent, unspecified; I10 Essential (primary) hypertension; M51.36 Other intervertebral disc degeneration, lumbar region; K21.9 Gastro-esophageal reflux disease without esophagitis; G47.00 Insomnia, unspecified; F17.210 Nicotine dependence, cigarettes, uncomplicated
CPT/HCPCS: 99214

== ENCOUNTER 2024-01-31 11:27 | Outpatient (AMB) | payer OTHER, SELFPAY ==
--- NOTE | 2024-01-31 11:28 | A.OFFPC_ITS ---
Vital Signs 01/31/24 11:30 Height 5 ft 1 in Weight 115 lb BMI 21.7 BP 130/70 Blood Pressure Location Lt brachial Position Sitting Pulse 64 Pulse Source Pulse Oximeter Pulse Oximetry (%) 97 Oxygen Delivery Method Room Air Intake Visit Reasons: follow up Intake Note: Patient is here to follow up on Osteoporosis, HTN, LDDD. Complaint of burning, lower back pain and pain when urinating. Passenger Brakeman Required: No Hospital Aides And Assistants Teacher: Not Required per policy Accompanied by: Self / Same As Patient Allergies No Known Allergies [No Known Allergies*] Allergy (Verified 01/31/24 11:52) Medication List - Last Reconciled 01/31/24 by Bayron Wheeler MD alendronate 70 mg PO QWEEK 3 months amlodipine 5 mg PO DAILY atorvastatin 10 mg PO DAILY baclofen 10 mg PO TID fluticasone propionate 50 mcg/actuation (Flonase Allergy Relief) 1 spray intranasal DAILY 14 days gabapentin 300 mg PO BEDTIME ibuprofen 800 mg PO TID PRN lisinopril-hydrochlorothiazide 20-12.5 mg 1 tab PO DAILY 90 days omeprazole 20 mg PO DAILY oxycodone 10 mg PO Q6H PRN 28 days promethazine 25 mg PO Q6H PRN Tobacco use date assessed: 01/31/24 Dental Screening Dental Screen Date: 10/28/23 HPI follow up HPI Details Patient comes in today for her follow up visit States that she has been experiencing increased dysuria and urinary urgency and frequency for the past 3 days Still has chronic low back pain and joint pains but states that these have been manageable on her current Rx She denies any headaches or dizziness Denies any chest pains but has noticed some increased SUAZO lately - feels that this has been going on for a few months now No nausea/vomiting, no abdominal pain No change in bowel habits noted She has not been able to get her previously ordered labs done yet [facility] Medical History Osteoporosis Depression Menopause Headache Bradycardia Postmenopausal vaginal bleeding Insomnia GERD without esophagitis Lumbar degenerative disc disease Pure hypercholesterolemia Benign essential hypertension HTN (hypertension) Surgical History History of colonoscopy (~09/29/20) Hx of tubal ligation History of esophagogastroduodenoscopy (EGD) H/O lumbar discectomy H/O hemorrhoidectomy Family History Mother Lung cancer Sister Colon cancer Sister Ovarian cancer Other Mental health problem Social History Household Members: Spouse and Children Housing: House Alcohol intake: current Alcohol intake frequency: holidays/special occasions only Patient Tobacco Use Status: Former Tobacco user Tobacco use type: Cigarette Cigarettes Per Day: 3 e-Cigarette/Vaping Use: Never Used Second Hand Smoke Exposure: Yes service: No Current occupational status: employed Current occupation: [employer] Cognitive needs: No Hearing needs: No Vision needs: Yes Female Reproductive History Menstrual Age of Menarche: 15 Questionnaire Thrive Questionnaire Date Thrive assessed: 10/28/23 PAKO-7 AMB Questionnaire PAKO-7 Date PAKO - 7 assessed: 10/28/23 Source: Developed by Drs. Benjamín Chau, Miryam Fisher, Dangelo Dillon and colleagues, with an educational leopoldo from [employer]. Review of Systems Const Denies chills, Reports difficulty sleeping, Denies fatigue, Denies fever(s) and Denies headache(s) ENT Denies dysphagia, Denies dizziness, Denies otalgia, Denies headache(s), Reports hearing loss (especially in the left ear), Denies neck pain, Denies odynophagia and Denies sore throat Card Denies chest pain, Denies palpitations and Reports dyspnea on exertion (recently) Resp Denies chest congestion, Denies cough, Reports dyspnea on exertion (recently) and Denies wheezing GI Denies abdominal pain, Denies constipation, Denies dysphagia, Denies heartburn, Denies diarrhea, Denies loose stools, Denies nausea, Denies odynophagia and Denies vomiting Denies difficulty voiding, Reports nocturia, Reports dysuria and Reports urinary urgency Musc Reports back pain (over the lower back - chronic) and Denies neck pain Skin/Breast Denies rash Neuro Denies dizziness and Denies headache(s) Psych Denies anxiety and Denies depression Endo Denies fatigue and Denies palpitations Jeffery/Lymph Denies easy bruising Aller/Immun Denies wheezing Physical exam (Primary Care) Vital Signs: Last Vital Signs Pulse 64 05/24/24 11:30 BP 130/70 01/31/24 11:30 Pulse Ox 97 01/31/24 11:30 Oxygen Delivery Method Room Air 01/31/24 11:30 BMI result Body Mass Index 21.7 Tobacco/Smoking Status: Tobacco use Status Tobacco use date assessed 01/31/24 01/31/24 11:34 Patient Tobacco Use Status Former Tobacco user 01/31/24 11:34 Tobacco use type Cigarette 01/31/24 11:34 e-Cigarette/Vaping Use Never Used 01/31/24 11:34 Thrive Assessment: Date of Thrive Assessment Date Thrive assessed 10/28/23 01/31/24 11:34 Const General: no acute distress and alert HENMT Ears: TM's normal bilaterally and EAC's normal Throat: Yes posterior oropharynx normal and Yes tonsils normal (no TP congestion) Neck Neck: Yes no lymphadenopathy and Yes supple Thyroid: Thyroid normal Resp Auscultation: clear to auscultation bilaterally, no rales and no wheezes Cardio Rate: regular rate Rhythm: regular rhythm Heart sounds: Murmur heart sound present systolic III/ and at the left sternal border GI Palpation (GI): Soft to palpation and nontender Auscultation: normal bowel sounds General: Yes no CVA tenderness Back/Spine/Pelvis Back: no CVA tenderness Thoracic/Lumbar Spine: lumbar spinal tenderness Skin Rashes: no rashes Extrem General: Yes no clubbing, cyanosis or edema Results AMB Urinalysis, Automated UA Leukoctes 3 Kaylin/uL Last Edit by RUBINA Lundberg on 01/31/24 11:42 UA Nitrite Positive Last Edit by RUBINA Lundberg on 01/31/24 11:42 UA Urobilinogen 0 mg/dL Last Edit by RUBINA Lundberg on 01/31/24 11:42 UA Protein 1 mg/dL Last Edit by RUBINA Lundberg on 01/31/24 11:42 UA pH 6.0 Last Edit by RUBINA Lundberg on 01/31/24 11:42 UA Blood 1 Alexys/uL Last Edit by RUBINA Lundberg on 01/31/24 11:42 UA Specific [place] 1.015 Last Edit by RUBINA Lundberg on 01/31/24 11: 42 UA Ketone Negative Last Edit by RUBINA Lundberg on 01/31/24 11:42 UA Bilirubin 0 mg/dL Last Edit by EVELINE LundbergA on 01/31/24 11:42 UA Glucose 0 mg/dL Last Edit by RUBINA Lundberg on 01/31/24 11:42 Results Reviewed Results Reviewed: Laboratory Last Values Urine pH (Auto) 6.0 01/31/24 11:34 Specific [place] (Auto) 1.015 01/31/24 11:34 Urine Protein (Auto) 1 mg/dL 01/31/24 11:34 Glucose (UA)(Auto) 0 mg/dL 01/31/24 11:34 Urine Ketones (Auto) Negative 01/31/24 11:34 Urine Blood (Auto) 1 Alexys/uL L* 01/31/24 11:34 Urine Nitrite (Auto) Positive 01/31/24 11:34 Urine Bilirubin (Auto) 0 mg/dL 01/31/24 11:34 Urine Urobilinogen (Auto) 0 mg/dL 01/31/24 11:34 Leukocyte Esterase (Auto) 3 Kaylin/uL H* 01/31/24 11:34 Assessment and Plan Assessment & Plan (1) Pure hypercholesterolemia: Code(s): E78.00 - Pure hypercholesterolemia, unspecified Plan: Patient has not been able to get her follow up labs done yet and is advised to try to get these done ELIE Reinforced low cholesterol diet Continue Atorvastatin 10 mg QD Will recheck her fasting lipids and labs again in 4 months for follow-up - patient is reminded that we may need to increase the dose of her Atorvastatin if her cholesterol numbers do not show any significant improvement on her follow up labs (2) Benign essential hypertension: Code(s): I10 - Essential (primary) hypertension Plan: Reinforced low-sodium diet - goal is systolic BP of at least 130 mm or less Continue Lisinopril-Hydrochlorothiazide 20-12.5 mg once a day (in AM) and Amlodipine 5 mg daily (in PM) (3) Cardiac murmur: Code(s): R01.1 - Cardiac murmur, unspecified Plan: Will send her for echocardiogram for further evaluation (4) Osteoporosis: Code(s): M81.0 - Age-related osteoporosis without current pathological fracture Qualifiers: Osteoporosis type: age-related Presence of current pathological fracture: without current pathological fracture Qualified Code(s): M81.0 - Age- related osteoporosis without current pathological fracture Plan: Continue Alendronate 70 mg Q week as instructed Reinforced fall precautions and she is again encouraged to continue to try to st ay active and exercise regularly Her repeat BMD on 09/04/2023 revealed (+) osteopenia based on the lowest T-score value of -2.3 in the lumbar spine applying World Health Organization criteria but her BMD has increased by 9.3% from baseline in the left femur but is unchanged in the lumbar spine Her index BMD done in March 2021 showed (+) osteoporosis based on the lowest T- score value of -2.5 in the femoral neck Will recheck her BMD again in 2 to 3 years for follow up (5) Lumbar degenerative disc disease: Code(s): M51.36 - Other intervertebral disc degeneration, lumbar region Plan: Patient continues to c/o (chronic) low back pain and frequent radiation of pain down her left leg but states that her current Rx help keep her symptoms manageable EMG and NCV done in December 2021 revealed (+) chronic bilateral lower lumbar radiculopathy with no evidence of acute pathology. Study was otherwise unremarkable with no evidence of any significant neuropathy Reinforced activity and weight lifting restrictions to minimize aggravating her back pain Continue Oxycodone 10 mg every 6 hours as needed (Rx refilled), Baclofen 10 mg TID PRN, Gabapentin 300 mg Q HS and Ibuprofen 800 mg 3 times a day with food She was previously sent for repeat lumbar spine x-rays for further evaluation of her recent increasing low back pain as has been several years now since she had any imaging studies done on her lower back but she did not get them done - will try reordering her x-rays and see if she can get these done when she goes for her labs (6) GERD without esophagitis: Code(s): K21.9 - Gastro-esophageal reflux disease without esophagitis Plan: Dietary restrictions reinforced Continue Omeprazole 20 mg QD (7) Urinary tract infection: Code(s): N39.0 - Urinary tract infection, site not specified Qualifiers: Urinary tract infection type: acute cystitis Hematuria presence: without hematuria Qualified Code(s): N30.00 - Acute cystitis without hematuria Plan: Her in-office urinalysis done today showed (+) findings consistent with a urinary tract infection Will go ahead and start her empirically on oral Cipro 500 mg BID x 7 days Patient is encouraged to continue to increase her oral fluid intake (8) Hearing loss of both ears: Comment: L>R Code(s): H91.93 - Unspecified hearing loss, bilateral Qualifiers: Hearing loss type: unspecified Qualified Code(s): H91.93 - Unspecified hearing loss, bilateral Plan: Will send patient for repeat hearing evaluation as it appears that her hearing has gotten worse as I have had to repeat myself quite a few times when talking to her during her visit today (9) Insomnia: Code(s): G47.00 - Insomnia, unspecified Qualifiers: Insomnia type: unspecified Qualified Code(s): G47.00 - Insomnia, unspecified Plan: Sleep hygiene reinforced Trazodone has not helped much and she could not tolerate Zolpidem (nightmares) (10) Depression: Code(s): F32.A - Depression, unspecified Qualifiers: Depression Type: major depressive disorder Major depression recurrence: recurrent Active/Remission status: currently active Major depression episode severity: unspecified Qualified Code(s): F33.9 - Major depressive disorder, recurrent, unspecified Plan: Was on Duloxetine 30 mg QD in the past but she appears to have self-discontinued this at some point - unclear when States that she is currently doing better with her mood and does not think she needs to take any Rx additionally at this time (11) Smoker: Code(s): F17.200 - Nicotine dependence, unspecified, uncomplicated Plan: Counseled again on smoking cessation Plan Follow up in 4 months Orders: Orders AMB Urinalysis Automated Today Z13.9 - Encounter for screening, unspecified XR lumbar spine 2-3V Today M54.50 - Low back pain, unspecified Complete Blood Count Auto Diff 4 Months D64.9 - Anemia, unspecified Comprehensive [place]. Panel Fast 4 Months E78.00 - Pure hypercholesterolemia, unspecified CA echo transthoracic complete Today R01.1 - Cardiac murmur, unspecified, R06.09 - Other forms of dyspnea Lipid Panel 4 Months E78.00 - Pure hypercholesterolemia, unspecified Referrals Speech and Hearing Referral H91.90 - Unspecified hearing loss, unspecified ear Medications: New ciprofloxacin HCl 500 mg PO BID 7 days 14 tabs 0RF Coding Level of Care Code Est Pt Level 4 (53121) Diagnoses Pure hypercholesterolemia E78.00 Benign essential hypertension I10 Cardiac murmur R01.1 Age-related osteoporosis without current pathological fracture M81.0 Osteoporosis type: age-related Presence of current pathological fracture: without current pathological fracture Lumbar degenerative disc disease M51.36 GERD without esophagitis K21.9 Acute cystitis without hematuria N30.00 Urinary tract infection type: acute cystitis Hematuria presence: without hematuria Bilateral hearing loss, unspecified hearing loss type H91.93 Hearing loss type: unspecified Insomnia, unspecified type G47.00 Insomnia type: unspecified Episode of recurrent major depressive disorder, unspecified depression episode severity F33.9 Depression Type: major depressive disorder Major depression recurrence: recurrent Active/Remission status: currently active Major depression episode severity: unspecified Smoker F17.200
[2024-01-31 11:30] VITALS: BP 130/70; PULSE 64; O2SAT 97; BMI 21.7
== END 2024-01-31 11:59 | disposition home or self-care (01) ==
PROVIDERS: PCP Internal Medicine; Visit Provider Internal Medicine
DX: E78.00 Pure hypercholesterolemia, unspecified (principal); F33.9 Major depressive disorder, recurrent, unspecified; I10 Essential (primary) hypertension; R01.1 Cardiac murmur, unspecified; M81.0 Age-related osteoporosis without current pathological fracture; M51.36 Other intervertebral disc degeneration, lumbar region; K21.9 Gastro-esophageal reflux disease without esophagitis; N30.00 Acute cystitis without hematuria; H91.93 Unspecified hearing loss, bilateral; G47.00 Insomnia, unspecified; F17.210 Nicotine dependence, cigarettes, uncomplicated
CPT/HCPCS: 81003; 99214

== ENCOUNTER 2024-02-26 08:22 | Outpatient (AMB) | payer OTHER, SELFPAY ==
[2024-02-26 08:34] VITALS: BMI 19.9
--- NOTE | 2024-02-26 08:34 | A.OFFVIS_ITS ---
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 She is doing well with no concerns. Attempting to eat a healthy diet with calcium and vitamin D and stays active with exercise-walking. Currently sexually active. Denies any irritation, has dryness, not using anything. STI testing offered; she declines. Last pap smear; 2022. Last mammogram; 2022. Colonoscopy is UTD. Denies any family history of ovarian or colon cancer. FH breast cancer, sister was BRCA negative. [facility] Medical History (Updated 02/26/24 @ 08:52 by Jodie Rome CNM) Osteoporosis Depression Menopause Headache Bradycardia Insomnia GERD without esophagitis Lumbar degenerative disc disease Pure hypercholesterolemia Benign essential hypertension HTN (hypertension) Surgical History History of colonoscopy (~09/29/20) Hx of tubal ligation History of esophagogastroduodenoscopy (EGD) H/O lumbar discectomy H/O hemorrhoidectomy Family History Mother Lung cancer Sister Colon cancer Sister Ovarian cancer Other Mental health problem Social History Household Members: Spouse and Children Housing: House Alcohol intake: current Alcohol intake frequency: holidays/special occasions only Patient Tobacco Use Status: Former Tobacco user Tobacco use type: Cigarette Cigarettes Per Day: 3 e-Cigarette/Vaping Use: Never Used Second Hand Smoke Exposure: Yes Patient : No service: No Current occupational status: employed 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 Cognitive needs: No Hearing needs: No Vision needs: Yes Female Reproductive History Menstrual Age of Menarche: 15 Review of Systems Const All systems reviewed & are unremarkable except as noted in HPI and below Reports as per HPI Eyes Reports no additional complaints ENT Reports no additional complaints Card Reports no additional complaints Resp Reports no additional complaints GI Reports as per HPI and Reports no additional complaints Reports as per HPI Musc Reports no additional complaints Skin/Breast Reports as per HPI Neuro Reports no additional complaints Psych Reports no additional complaints Endo Reports no additional complaints Jeffery/Lymph Reports no additional complaints Aller/Immun Reports no additional complaints Physical Exam Vital Signs: BMI result Body Mass Index 19.9 Const General: cooperative, healthy appearing, no acute distress, well developed and alert Orientation/consciousness: patient oriented x3 HEENT Head: Yes normal to inspection Eyes General: appearance normal, both eyes and all related structures Neck Neck: Yes normal visual inspection Thyroid: Thyroid normal Chest Chest palpation & inspection: normal inspection of the chest and other (no puckering, dimpling, peau de orange, retraction, discharge, masses) Breast/axilla inspection: normal inspection of the breasts Breast/axilla palpation: normal palpation of the breasts Resp Effort & Inspection: normal respiratory effort GI Inspection: Yes normal to inspection Palpation (GI): Soft to palpation Rectal Exam - Female: deferred General: Yes bladder normal to palpation and Yes Bimanual renal exam abnormal External Female Exam: normal external appearance and normal appearance of the urethra Speculum Exam - Vagina: normal appearance of the vagina, normal palpation, normal vaginal discharge and vagina atrophic Speculum Exam - Cervix: normal appearance of the cervix and normal palpation Bimanual exam- vagina & uterus: normal bimanual exam, normal palpation, uterine size normal, bladder normal to palpation, normal palpation and non-tender Bimanual Exam- Adnexa, other: no masses Skin General skin exam: no rashes or lesions noted Rashes: no rashes Neuro General: patient oriented x3 Cognition (Neuro): normal cognition Extrem General: Yes normal to inspection Psych Attitude: cooperative Thought process: Normal thought process present Assessment & Plan Assessment & Plan (1) Encounter for well woman exam with routine gynecological exam: Code(s): Z01.419 - Encounter for gynecological examination (general) (routine) without abnormal findings Plan Discussed: Current recommendations for pap smears per ASCCP guidelines. Breast awareness, periodic self breast exams and yearly mammogram. Maintain a healthy lifestyle, well balanced diet including Calcium 1,200 mg and Vitamin D 600 IU daily, and routine exercise. Vaginal moisturizers and lubricants. Contact the office with any postmenopausal bleeding. Patient verbalizes understanding and agrees to the plan of care. She was given opportunity to ask questions and all questions were answered to the best of my ability. RTO in 1 year for annual medical billing manager exam. This note is constructed using voice recognition software. While every effort has been made to ensure accuracy, aircraft worker errors may have been included. Coding Level of Care Code Est Pt Prev Care 40-64y(92455) Diagnoses Encounter for well woman exam with routine gynecological exam Z01.419
== END 2024-02-26 09:03 | disposition home or self-care (01) ==
LOC: HO.HWS 08:22
PROVIDERS: PCP Internal Medicine; Visit Provider Advanced Practice Midwife
DX: Z01.419 Encounter for gynecological examination (general) (routine) without abnormal findings (principal)
CPT/HCPCS: 99396

== ENCOUNTER → 2024-02-26 08:22 | Outpatient (BNVA) | payer OTHER, SELFPAY | PROVIDERS: PCP Internal Medicine; Visit Provider Advanced Practice Midwife | DX: Z01.419 Encounter for gynecological examination (general) (routine) without abnormal findings (principal) | CPT/HCPCS: 99396 ==

== ENCOUNTER → 2024-03-03 12:58 | Outpatient (REF) | payer OTHER, SELFPAY ==
--- NOTE | 2024-03-03 13:01 | CA_ITS ---
Transthoracic Echocardiogram Patient (Last, First, Middle): Ioana Parson, Gender: Female Date of : 1965 Age: 58 Procedure Date: 03/03/2024 Procedure Type: Transthoracic Echocardiogram Location: OP Height: 154. cm Weight: 52.62 kg BSA: 1.49 m2 Heart Rate: 49 bpm BP: 145 / 70 mmHg Tray Drier Operator: SAMANTHA Urbina MD: Bayron Wheeler MD [employer] Worker: Isidro Hawkins MD Symptoms: R01.1 - Cardiac murmur, unspecified Study Quality: Adequate ECG Rhythm: Bradycardia Conclusions: - 1. Normal LV ejection fraction 65-70% 2. Increased gradient across aortic valve and LVOT suggestive of increased stroke volume, no evidence of aortic stenosis 3. Normal RV systolic pressure 4. No gross pericardial effusion Findings Left Ventricle Normal left ventricular size, thickness, and systolic function. The visually estimated ejection fraction is between 65-70%. Spectral Doppler is indicative of a normal filling pattern. Right Ventricle Normal right ventricular cavity size and systolic function. Atria The left atrium is mildly dilated. There is no evidence of interatrial shunt. The right atrium is likely dilated. Aortic Valve Normal aortic valve structure and function. There is no aortic valve stenosis. The peak aortic gradient is 20 mmHg.The mean gradient is 9 mmHg. There is no aortic valve regurgitation. there is increased gradient across the aortic valve as well as the LVOT, suggestive of higher stroke volume. Mitral Valve Normal mitral valve structure and function. There is trace mitral valve regurgitation. There is no mitral valve stenosis. Pulmonic Valve The pulmonic valve is likely normal. Tricuspid Valve Normal tricuspid valve structure. There is mild tricuspid valve regurgitation. The right ventricular systolic pressure is normal. The right ventricular systolic pressure is 23 mmHg. Normal right atrial pressure. There is no evidence of pulmonary hypertension. Great Vessels All visible segments of the aorta are normal in size. The pulmonary artery was not well visualized. There is no dilatation of the ascending aorta measuring 3.00 cm. Venous The inferior vena cava is normal in size and collapses greater than 50% with inspiration. Pericardium/Pleural There is no evidence of pericardial effusion. Prior Study Comparison No significant change compared to prior study dated: 11/29/2016. Measurements 2D Linear Measurements IVSd: 1.11 0.6-0.9/0.6-1.0 cm LVIDd: 4.21 3.9-5.3/4.2-5.9 cm LVIDd Index: 2.83 2.4-3.2/2.2-3.1 cm/m2 LVIDs: 2.01 2.0-3.6 cm LVPWd: 1.14 0.7-1.1 cm LA Diam: 4.10 2.7-3.8/3.0-4.0 cm LAIDs Index: 2.75 1.5-2.3 cm/m2 LV Mass: 202.77 67-162/88-224 g LV Mass Index: 136.08 43-95/49-115 g/m2 LVOT Diam: 1.90 3.0+(-)1.3 cm 2D Systolic Function EF 4C: 71.80 >55% EF 2C: 66.70 >55% EF BiP: 69.40 >55% Mitral Valve MV Pk E: 0.81 MV PK A: 0.84 MV Decel Time: 277.00 E/A: 1.00 E'Lateral: 9.68 E'Medial: 7.07 E/E' Med: 11.50 E/E' Lat: 8.40 PHT: 81.00 MVA PHT: 2.72 Decel [place]: 2.94 Aortic Valve AoV Pk Brayden: 2.21 AoV Mn Brayden: 1.39 AoV VTI: 0.46 AoV Pk Grad: 20.00 Aov Mn Grad: 9.00 YARI Cont.VTI: 2.26 LVOT LVOT Pk Brayden: 1.75 LVOT Mn Brayden: 1.07 LVOT VTI: 0.36 LVOT Pk Grad: 12.00 LVOT Mn Grad: 5.00 LVOT Diam: 1.90 LVOT Area: 2.84 Diastolic Function MV Pk E: 0.81 MV Pk A: 0.84 E/A: 1.00 E'Medial: 7.07 E/E' Med: 11.50 E' Laterial: 9.68 E/E' Lat: 8.40 Right Ventricle TAPSE (mm): 23.50 TVS' Brayden: 12.60 Tricuspid Valve TR Pk Brayden: 2.25 TR Pk Grad: 20.00 RA Press: 3.00 RVSP: 23.00 Great Vessels Aorta Sinus of Valsalva: 2.70 2.0-3.5 cm Ao Asc: 3.00 2.1-3.4 cm Pulmonary Valve PV Pk Brayden: 1.41 Peak PV Grad: 8.00 Updated in Other Vendor System with Status of Final Isidro Hawkins MD electronically signed on 03/03/2024 4:43:25 PM with status of Final
== END ==
LOC: HO.CARD 12:58
PROVIDERS: PCP Internal Medicine; Visit Provider Internal Medicine
DX: R01.1 Cardiac murmur, unspecified (principal); R06.09 Other forms of dyspnea
CPT/HCPCS: 93306

== ENCOUNTER → 2024-03-03 13:01 | Outpatient (BNV) | payer OTHER, SELFPAY | PROVIDERS: PCP Internal Medicine; Visit Provider Internal Medicine Cardiovascular Disease | DX: I36.1 Nonrheumatic tricuspid (valve) insufficiency (principal); R93.1 Abnormal findings on diagnostic imaging of heart and coronary circulation | CPT/HCPCS: 93306 ==

== ENCOUNTER 2024-03-13 10:34 | Outpatient (REF) | payer OTHER, SELFPAY | END 2024-03-13 10:35 | disposition home or self-care (01) | LOC: HO.SH 10:34 | PROVIDERS: Visit Provider Internal Medicine | DX: Z01.118 Encounter for examination of ears and hearing with other abnormal findings (principal); H90.A21 Sensorineural hearing loss, unilateral, right ear, with restricted hearing on the contralateral side; H90.A32 Mixed conductive and sensorineural hearing loss, unilateral, left ear with restricted hearing on the contralateral side | CPT/HCPCS: 92557; 92567 ==

== ENCOUNTER 2024-06-08 07:56 | Outpatient (REF) | payer OTHER, SELFPAY ==
[2024-06-08 08:17] LABS: MANUAL DIFF FLAG NO
[2024-06-08 08:33] LABS: Basophils Absolute Auto 0.1 X10*3/uL (0.0-0.2); Basophils Percent Auto 0.8 % (0-2); Eosinophils Absolute Auto 0.3 X10*3/uL (0.0-0.4); Eosinophils Percent Auto 4.4 % (0-4); Hematocrit 35.9 % (37.0-47.0); Hemoglobin 12.7 g/dl (12.0-16.0); Imm Gran Abs Auto 0.04 X10*3/uL (0.00-0.03); Imm Gran Pct Auto 0.5 % (0.0-0.4); Lymphocytes Absolute Auto 3.1 X10*3/uL (1.2-4.9); Lymphocytes Percent Auto 41.5 % (20-40); Mean Corpuscular HGB Conc 35.4 g/dl (31.0-35.0); Mean Corpuscular Hemoglobin 34.4 pg (27.0-33.0); Mean Corpuscular Volume 97.3 fL (80.0-98.0); Mean Platelet Volume 10.5 fL (9.4-12.3); Monocytes Absolute Auto 0.4 X10*3/uL (0.1-1.2); Monocytes Percent Auto 5.2 % (2-11); Neutrophils Absolute Auto 3.6 x10*3/uL (2.0-8.3); Neutrophils Percent Auto 47.6 % (45-73); Platelet Count 346 X10*3/uL (160-400); Red Blood Count 3.69 X10*6/uL (4.20-5.50); Red Cell Distribution Width 11.9 % (11.0-16.0); White Blood Count 7.6 X10*3/uL (4.8-10.8)
[2024-06-08 09:07] LABS: Alanine Aminotransferase 25 U/L (0-31); Albumin Level 4.5 g/dL (3.5-5.0); Alkaline Phosphatase 76 U/L (39-117); Anion Gap 11 (12-20); Aspartate Amino Transferase 22 U/L (5-31); Bilirubin Total 0.2 mg/dL (0.0-1.0); Blood Urea Nitrogen 20 mg/dL (9-16); Calcium 9.9 mg/dL (8.4-10.2); Carbon Dioxide 28 mmol/L (22-29); Chloride 108 mmol/L (96-108); Cholesterol 259 mg/dL (<200); Estimated Glomerular Filt Rate > 60; Glucose Fasting 106 mg/dL (60-99); HDL Cholesterol 34 mg/dL (>40); Potassium 3.6 mmol/L (3.3-5.1); Sodium 143 mmol/L (135-145); Total Protein 6.9 g/dL (6.5-8.0); Triglycerides 477 mg/dL (<150)
[2024-06-08 09:23] LABS: TSH reflex Free T4 0.65 uIU/mL (0.32-4.0); Vitamin D 25-OH Total 38.6 ng/mL (>30)
[2024-06-08 09:41] LABS: Appearance Urine Clear; Color Urine Yellow; Glucose Urine UA Negative (Negative); Leukocyte Esterase Urine Negative (Negative); Nitrite Urine Negative (Negative); PH 6.5 (5.0-9.0); Specific Gravity - Urine 1.025 (1.005-1.025); UMIC TRIGGER UACC YES; Urine Blood Trace (Negative); Urine Ketones Negative (Negative); Urine Protein Trace mg/dL (Neg-Trace)
[2024-06-08 10:07] LABS: Bacteria Urine None Seen (None Seen); Hyaline Casts Urine 0-2 /LPF (0-2); Squamous Epithelial Cell Urine 0-2 /HPF (0-2); WBC Urine 0-5 /HPF (0-5)
== END 2024-06-08 07:57 | disposition home or self-care (01) ==
LOC: HO.LAB 07:56
PROVIDERS: PCP Internal Medicine; Visit Provider Internal Medicine
DX: Z00.00 Encounter for general adult medical examination without abnormal findings (principal); D64.9 Anemia, unspecified; E78.00 Pure hypercholesterolemia, unspecified; E55.9 Vitamin D deficiency, unspecified; E87.6 Hypokalemia
CPT/HCPCS: 36415; 80053; 80061; 81001; 82306; 84443; 85025

== ENCOUNTER 2024-06-10 16:26 | Outpatient (AMB) | payer OTHER, SELFPAY ==
--- NOTE | 2024-06-10 16:28 | A.OFFPC_ITS ---
Vital Signs 06/10/24 16:30 Height 5 ft 1 in Weight 121 lb 8 oz BMI 23.0 BP 136/82 Blood Pressure Location Lt brachial Position Sitting Pulse 54 Pulse Source Pulse Oximeter Pulse Oximetry (%) 98 Oxygen Delivery Method Room Air Intake Visit Reasons: [facility] Financial Services Intern Required: No Accompanied by: Self / Same As Patient Allergies No Known Allergies [No Known Allergies*] Allergy (Verified 06/10/24 17:05) Medication List - Last Reconciled 06/10/24 by Bayron Wheeler MD alendronate 70 mg PO QWEEK 3 months amlodipine 5 mg PO DAILY atorvastatin 10 mg PO DAILY baclofen 10 mg PO TID fluticasone propionate 50 mcg/actuation (Flonase Allergy Relief) 1 spray intranasal DAILY 14 days gabapentin 300 mg PO BEDTIME ibuprofen 800 mg PO TID PRN lisinopril-hydrochlorothiazide 20-12.5 mg 1 tab PO DAILY 90 days naloxone 4 mg/actuation (Narcan) 4 mg intranasal Q2M PRN omeprazole 20 mg PO DAILY oxycodone 10 mg PO Q6H PRN 28 days promethazine 25 mg PO Q6H PRN Tobacco use date assessed: 06/10/24 Dental Screening Dental Screen Date: 06/10/24 Did you have a dental visit in the last 12 months?: Yes Did you have a dental problem in the last 6 months where you did not have access to dental care?: No Was dental information given to patient?: Patient has dentist HPI [facility] HPI Details Patient comes in today for her follow up visit States that she has recently noticed some increased SOB with exertion lately that seems to be slightly more prominent than before She denies any headaches or dizziness Denies any chest pains; no increased cough/congestion or cold symptoms lately No nausea/vomiting, no abdominal pain No change in bowel habits noted States that she still has chronic low back pain and joint pains and that her current meds have been helping with her pain but the relief do not seem to be lasting as long as they use to and she finds herself sometimes needing to take her medication earlier than she is supposed to, especially at night as she would often wake up in the middle of the night due to increased pain She had her follow up labs done a few days ago - to discuss her results She would also like to get her flu shot today [facility] Medical History (Updated 06/14/24 @ 13:16 by Bayron Wheeler MD) Osteoporosis Depression Menopause Headache Bradycardia Insomnia GERD without esophagitis Lumbar degenerative disc disease Pure hypercholesterolemia Benign essential hypertension Surgical History History of colonoscopy (~09/29/20) Hx of tubal ligation History of esophagogastroduodenoscopy (EGD) H/O lumbar discectomy H/O hemorrhoidectomy Family History Mother Lung cancer Sister Colon cancer Sister Ovarian cancer Other Mental health problem Social History Household Members: Spouse and Children Housing: House Alcohol intake: current Alcohol intake frequency: holidays/special occasions only Patient Tobacco Use Status: Former Tobacco user Tobacco use type: Cigarette Cigarettes Per Day: 3 e-Cigarette/Vaping Use: Never Used Second Hand Smoke Exposure: Yes service: No Current occupational status: employed 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 1. Little interest or pleasure in doing things: not at all 2. Feeling down, depressed, or hopeless: not at all 3. Trouble falling or staying asleep, or sleeping too much: not at all 4. Feeling tired or having little energy: not at all 5. Poor appetite or overeating: not at all 6. Feeling bad about yourself - or that you are a failure or have let yourself or your family down: not at all 7. Trouble concentrating on things, such as reading the newspaper or watching television: not at all 8. Moving or speaking so slowly that other people could have noticed. Or the opposite - being so fidgety or restless that you have been moving around a lot more than usual: not at all 9. Thoughts that you would be better off or of hurting yourself in some way: not at all Total score: 0 Depression Screening Interpretation: Negative Depression Screening Done: Yes 94912 - PHQ-9 Billing: Yes Source: Developed by Drs. Benjamín Chau, Miryam Fisher, Dangelo Dillon and colleagues, with an educational leopoldo from [employer]. Thrive Questionnaire Date Thrive assessed: 06/10/24 I am a: Patient What is your living situation today?: I have a steady place to live Within the past 12 months, did the food you bought not last and you didn't have the money to get more?: Never true Within the past 12 months, did you worry whether your food would run out before you got money to buy more?: Never true Do you have trouble paying for medicines?: No Do you have trouble getting transportation to medical appointments?: No Do you have trouble paying your heating and electricity bill?: No Do you have trouble taking care of your child, family member or friend?: No Do you have trouble with day-to-day activities such as bathing, preparing meals, shopping, managing finances, etc.?: No Are you currently unemployed and looking for a job?: No Are you interested in more education?: No Please select the resources that you would like help with: None Currently or been in a relationship where the following occur: No concerns reported THRIVE Score: 0 AUDIT C Alcohol Use Questionnaire (AUDIT-C) 1. How often do you have a drink containing alcohol?: Never 2. How many drinks containing alcohol do you have on a typical day when you are drinking?: 1 or 2 3. How often do you have six or more drinks on one occasion?: Never Total Score: 0 Score Reviewed/Action Taken: Yes PAKO-7 AMB Questionnaire PAKO-7 Date PAKO - 7 assessed: 06/10/24 Feeling nervous, anxious, or on edge: 0 = Not at all Not being able to stop or control worryin = Not at all Worrying too much about different things: 0 = Not at all Trouble relaxin = Not at all Being so restless that it is hard to sit still: 0 = Not at all Becoming easily annoyed or irritable: 0 = Not at all Feeling afraid as if something awful might happen: 0 = Not at all Total PAKO-7 score (0-4 normal; 5-9 mild; 10-14 moderate; 15-21 severe): 0 Source: Developed by Miryam De B.W. Phillip, Dangelo Dillon and colleagues, with an educational leopoldo from [employer]. Review of Systems Const Denies chills, Reports difficulty sleeping, Denies fatigue, Denies fever(s) and Denies headache(s) ENT Denies dysphagia, Denies dizziness, Denies otalgia, Denies headache(s), Reports hearing loss (especially in the left ear), Denies neck pain, Denies odynophagia and Denies sore throat Card Denies chest pain, Denies palpitations and Reports dyspnea on exertion (recently) Resp Denies chest congestion, Denies cough, Reports dyspnea on exertion (recently) and Denies wheezing GI Denies abdominal pain, Denies constipation, Denies dysphagia, Denies heartburn, Denies diarrhea, Denies loose stools, Denies nausea, Denies odynophagia and Denies vomiting Denies difficulty voiding, Denies nocturia and Denies dysuria Musc Reports back pain (over the lower back - chronic), Reports arthralgias and Denies neck pain Skin/Breast Denies rash Neuro Denies dizziness and Denies headache(s) Psych Denies anxiety and Denies depression Endo Denies fatigue and Denies palpitations Jeffery/Lymph Denies easy bruising Aller/Immun Denies wheezing Physical exam (Primary Care) Vital Signs: Last Vital Signs Pulse 54 06/10/24 16:30 BP 136/82 06/10/24 16:30 Pulse Ox 98 06/10/24 16:30 Oxygen Delivery Method Room Air 06/10/24 16:30 BMI result Body Mass Index 23.0 Tobacco/Smoking Status: Tobacco use Status Tobacco use date assessed 06/10/24 06/10/24 16:33 Patient Tobacco Use Status Former Tobacco user 06/10/24 16:33 Tobacco use type Cigarette 06/10/24 16:33 e-Cigarette/Vaping Use Never Used 06/10/24 16:33 PHQ-9: PHQ-9 Score PHQ-9: Total score 0 06/10/24 17:08 Depression Screening Interpretation: Negative Thrive Assessment: Date of Thrive Assessment Date Thrive assessed 06/10/24 06/10/24 16:33 Currently or been in a relationship where the following occur: No concerns reported Const General: no acute distress and alert HENMT Ears: TM's normal bilaterally and EAC's normal Throat: Yes posterior oropharynx normal and Yes tonsils normal (no TP congestion) Neck Neck: Yes no lymphadenopathy and Yes supple Thyroid: Thyroid normal Resp Auscultation: clear to auscultation bilaterally, no rales and no wheezes Cardio Rate: regular rate Rhythm: regular rhythm Heart sounds: Murmur heart sound present systolic III/ and at the left sternal border GI Palpation (GI): Soft to palpation and nontender Auscultation: normal bowel sounds General: Yes no CVA tenderness Back/Spine/Pelvis Back: no CVA tenderness Thoracic/Lumbar Spine: lumbar spinal tenderness Skin Rashes: no rashes Extrem General: Yes no clubbing, cyanosis or edema Office Procedures Flu Questionnaire Does the patient have a severe egg allergy?: No Does the patient have severe life threatening allergies?: No Does the patient have a fever or illness today?: No Has the patient ever had Guillain-Echo Syndrome?: No Has the patient ever had any past reaction to a flu shot?: No Immunizations Fluarix Triv [id number] (PF) 45 mcg (15 mcg x 3)/0.5 mL IM syringe Performing Provider: Bayron Wheeler MD [facility] Administered by: RUBINA Curry on 06/10/24 16:39 Dose Route Admin Location Dispensed Lot Number Expiration Date [facility] Clinical Laboratory Director 0.5 mL IM Left Deltoid 0.5 mL [id number] 03/08/25 [id number] [employer] VIS Given Date VIS Provided VIS Publication Date 06/10/24 Single Vaccine 21 Eligibility Eligibility Date Funding Source Not [facility] Eligible 06/10/24 Private Results Reviewed Results Reviewed: Laboratory Tests 06/08/24 06/08/24 08:14 08:15 WBC 7.6 Hgb 12.7 Hct 35.9 L Plt Count 346 Sodium 143 Potassium 3.6 Creatinine 0.70 Estimated GFR > 60 Fasting Glucose 106 H Calcium 9.9 AST 22 ALT 25 Triglycerides 477 H Cholesterol 259 H LDL Cholesterol, Calc TNP HDL Cholesterol 34 L 25-OH Vitamin D Total 38.6 TSH 0.65 Ur Specific [place] 1.025 Urine Protein Trace Urine Glucose (UA) Negative Urine Blood Trace H Urine Nitrite Negative Ur Leukocyte Esterase Negative Coding Level of Care Code Est Pt Level 4 (30913) Diagnoses Pure hypercholesterolemia E78.00 Benign essential hypertension I10 Cardiac murmur R01.1 Shortness of breath R06.02 Dyspnea type: shortness of breath Age-related osteoporosis without current pathological fracture M81.0 Osteoporosis type: age-related Presence of current pathological fracture: without current pathological fracture Degeneration of intervertebral disc of lumbar region with discogenic back pain and lower extremity pain M51.362 Disc-related pain type: discogenic back pain and lower extremity pain GERD without esophagitis K21.9 Insomnia, unspecified type G47.00 Insomnia type: unspecified Episode of recurrent major depressive disorder, unspecified depression episode severity F33.9 Depression Type: major depressive disorder Major depression recurrence: recurrent Active/Remission status: currently active Major depression episode severity: unspecified Smoker F17.200 Assessment & Plan Assessment & Plan (1) Pure hypercholesterolemia: Code(s): E78.00 - Pure hypercholesterolemia, unspecified Category: Medical Plan: Results of her labs done a few days ago reviewed and discussed with patient - she is cautioned that her cholesterol levels have increased significantly from p revious, with her serum TG now at 477 mg/dl and total cholesterol at 259 mg/dl Her LDL cholesterol is not available at this time but it had also increased significantly from previous when it was last checked in July 2023 Reinforced low cholesterol diet Patient admits to poor compliance with her medication - states that she often skips it or forgets to take it and is wondering if she can take it in the morning instead with all of her other meds, which should make it easier for her to remember taking it Have advised her that although taking it at night is the best time, it makes no difference if she keeps forgetting to take it so if it makes it easier for her to remember taking it in the morning, then she should go ahead and take in in AM together with her other meds Will continue her on the same dose for now - Atorvastatin 10 mg QD Will have her recheck her labs and fasting lipids in a few months for follow up - these will be ordered when she comes in next month for her annual physical examination (2) Benign essential hypertension: Code(s): I10 - Essential (primary) hypertension Category: Medical Plan: Reinforced low-sodium diet - goal is systolic BP of at least 130 mm or less Continue Lisinopril-Hydrochlorothiazide 20-12.5 mg once a day (in AM) and Amlodipine 5 mg daily (in PM) (3) Cardiac murmur: Code(s): R01.1 - Cardiac murmur, unspecified Category: Medical Plan: Echocardiogram done in February 2024 revealed normal LV ejection fraction at 65-70%, with increased gradient across aortic valve and LVOT suggestive of increased stroke volume but there is no evidence of aortic stenosis. RV systolic pressure is normal and there is no gross pericardial effusion No further intervention is needed at this time (4) Dyspnea: Code(s): R06.00 - Dyspnea, unspecified Category: Medical Qualifiers: Dyspnea type: shortness of breath Qualified Code(s): R06.02 - Shortness of breath Plan: Patient is a chronic smoker Will send her for chest x-rays and PFT for further evaluation (5) Osteoporosis: Code(s): M81.0 - Age-related osteoporosis without current pathological fracture Category: Medical Qualifiers: Osteoporosis type: age-related Presence of current pathological fracture: without current pathological fracture Qualified Code(s): M81.0 - Age- related osteoporosis without current pathological fracture Plan: Continue Alendronate 70 mg Q week as instructed Reinforced fall precautions and she is again encouraged to continue to try to stay active and exercise regularly Her repeat BMD on 09/04/2023 revealed (+) osteopenia based on the lowest T-score value of -2.3 in the lumbar spine applying World Health Organization criteria but her BMD has increased by 9.3% from baseline in the left femur but is unchanged in the lumbar spine Her index BMD done in March 2021 showed (+) osteoporosis based on the lowest T- score value of -2.5 in the femoral neck Will recheck her BMD again in 2 to 3 years for follow up (6) Lumbar degenerative disc disease: Code(s): M51.36 - Other intervertebral disc degeneration, lumbar region Category: Medical Qualifiers: Disc-related pain type: discogenic back pain and lower extremity pain Qualified Code(s): M51.362 - Other intervertebral disc degeneration, lumbar region with discogenic back pain and lower extremity pain Plan: Patient continues to c/o (chronic) low back pain and frequent radiation of pain down her left leg - states that her current Rx help keep her symptoms manageable but they are not lasting as long as they used to EMG and NCV done in December 2021 revealed (+) chronic bilateral lower lumbar radiculopathy with no evidence of acute pathology. Study was otherwise unremarkable with no evidence of any significant neuropathy Reinforced activity and weight lifting restrictions to minimize aggravating her back pain Continue Oxycodone 10 mg every 6 hours as needed, Baclofen 10 mg TID PRN and Ibuprofen 800 mg 3 times a day with food Will try increasing her Gabapentin from 300 mg to 400 mg Q HS (7) GERD without esophagitis: Code(s): K21.9 - Gastro-esophageal reflux disease without esophagitis Category: Medical Plan: Dietary restrictions reinforced Continue Omeprazole 20 mg QD (8) Insomnia: Code(s): G47.00 - Insomnia, unspecified Category: Medical Qualifiers: Insomnia type: unspecified Qualified Code(s): G47.00 - Insomnia, unspecified Plan: Sleep hygiene reinforced Trazodone has not helped much and she could not tolerate Zolpidem (nightmares) (9) Depression: Code(s): F32.A - Depression, unspecified Category: Medical Qualifiers: Depression Type: major depressive disorder Major depression recurrence: recurrent Active/Remission status: currently active Major depression episode severity: unspecified Qualified Code(s): F33.9 - Major depressive disorder, recurrent, unspecified Plan: She was on Duloxetine 30 mg QD in the past but she appears to have self- discontinued this at some point - unclear as to when States that she is currently doing better with her mood and does not think she needs to take any Rx additionally at this time (10) Smoker: Code(s): F17.200 - Nicotine dependence, unspecified, uncomplicated Category: Social Hx Plan: Patient is counseled again on smoking cessation, especially with her recent increasing SUAZO Plan As requested, flu vaccine given to patient today To return as scheduled next month for her annual physical examination Orders: Orders XR chest 2V 06/10/24 F17.200 - Nicotine dependence, unspecified, uncomplicated, R06.00 - Dyspnea, unspecified Influenza [id number] Immunization 06/10/24 Z23 - Encounter for immunization PFT pulmonary function test 06/10/24 F17.200 - Nicotine dependence, unspecified, uncomplicated, R06.00 - Dyspnea, unspecified Medications: Changed From gabapentin 300 mg PO BEDTIME 30 caps 2RF To gabapentin 400 mg PO BEDTIME 90 days 90 caps 1RF
[2024-06-10 16:30] VITALS: BP 136/82; PULSE 54; O2SAT 98; BMI 23.0
== END 2024-06-10 17:13 | disposition home or self-care (01) ==
PROVIDERS: PCP Internal Medicine; Visit Provider Internal Medicine
DX: E78.00 Pure hypercholesterolemia, unspecified (principal); I10 Essential (primary) hypertension; F33.9 Major depressive disorder, recurrent, unspecified; R01.1 Cardiac murmur, unspecified; R06.02 Shortness of breath; M81.0 Age-related osteoporosis without current pathological fracture; M51.362 Other intervertebral disc degeneration, lumbar region with discogenic back pain and lower extremity pain; K21.9 Gastro-esophageal reflux disease without esophagitis; G47.00 Insomnia, unspecified; F17.200 Nicotine dependence, unspecified, uncomplicated

== ENCOUNTER → 2024-06-10 16:26 | Outpatient (BNVA) | payer OTHER, SELFPAY | PROVIDERS: PCP Internal Medicine; Visit Provider Internal Medicine | DX: Z23 Encounter for immunization (principal); E78.00 Pure hypercholesterolemia, unspecified; I10 Essential (primary) hypertension; R01.1 Cardiac murmur, unspecified; R06.02 Shortness of breath; M81.0 Age-related osteoporosis without current pathological fracture; M51.362 Other intervertebral disc degeneration, lumbar region with discogenic back pain and lower extremity pain; K21.9 Gastro-esophageal reflux disease without esophagitis; G47.33 Obstructive sleep apnea (adult) (pediatric); F33.9 Major depressive disorder, recurrent, unspecified; F17.200 Nicotine dependence, unspecified, uncomplicated; Z71.6 Tobacco abuse counseling | CPT/HCPCS: 90471; 90656; 96127; 99212 ==

== ENCOUNTER 2024-07-15 09:49 | Outpatient (AMB) | payer OTHER, SELFPAY ==
--- NOTE | 2024-07-15 09:55 | AM.OFFWIN_ITS ---
Intake Vital Signs 3 07/15/24 10:03 Height 5 ft 1 in Weight 123 lb BMI 23.2 BP 148/90 H Blood Pressure Location Rt brachial Position Sitting Pulse 59 Pulse Source Pulse Oximeter Pulse Oximetry (%) 97 Oxygen Delivery Method Room Air Intake Visit Reasons: EP ? UTI Patient Tobacco Use Status: Former Tobacco user Allergies atorvastatin Adverse Reaction (Intermediate, Verified 06/16/24 14:19) nausea, dizziness, fatigue Medication List - Last Reconciled 07/15/24 by John Sexton MD alendronate 70 mg PO QWEEK 3 months amlodipine 5 mg PO DAILY baclofen 10 mg PO TID fluticasone propionate 50 mcg/actuation (Flonase Allergy Relief) 1 spray intranasal DAILY 14 days gabapentin 400 mg PO BEDTIME 90 days ibuprofen 800 mg PO TID PRN lisinopril-hydrochlorothiazide 20-12.5 mg 1 tab PO DAILY 90 days naloxone 4 mg/actuation (Narcan) 4 mg intranasal Q2M PRN omeprazole 20 mg PO DAILY oxycodone 10 mg PO Q6H PRN 28 days promethazine 25 mg PO Q6H PRN rosuvastatin 5 mg PO DAILY 30 days Do you need a note to return to daycare/school/sports/work: No HPI EP ? UTI 2 HPI0 Details Patient is a 58-year-old female came in today to be evaluated for possible bladder infection Symptom has been going on for the past 3 days Patient says that she takes oxycodone regularly for her back pain But in spite of taking that she was having symptoms of pain so she decided to come in to be checked UA shows positive leuk esterase and blood Examination is benign except some pressure suprapubic I have sent Macrobid 100 mg b.i.d. for 5 days Patient was instructed to push fluids Review system reveals no fever no chills no nausea no vomiting PFSH Medical History Osteoporosis Depression Menopause Headache Bradycardia Insomnia GERD without esophagitis Lumbar degenerative disc disease Pure hypercholesterolemia Benign essential hypertension Surgical History History of colonoscopy (~09/29/20) Hx of tubal ligation History of esophagogastroduodenoscopy (EGD) H/O lumbar discectomy H/O hemorrhoidectomy Family History Mother Lung cancer Sister Colon cancer Sister Ovarian cancer Other Mental health problem Social History Household Members: Spouse and Children Housing: House Alcohol intake: current Alcohol intake frequency: holidays/special occasions only Patient Tobacco Use Status: Former Tobacco user Tobacco use type: Cigarette Cigarettes Per Day: 3 e-Cigarette/Vaping Use: Never Used Second Hand Smoke Exposure: Yes service: No Current occupational status: employed 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 Cognitive needs: No Hearing needs: No Vision needs: Yes Female Reproductive History Menstrual Age of Menarche: 15 Review of Systems Const All systems reviewed & are unremarkable except as noted in HPI and below Physical Exam Vital Signs: Last Vital Signs Pulse 59 07/15/24 10:03 BP 148/90 H 07/15/24 10:03 Pulse Ox 97 07/15/24 10:03 Oxygen Delivery Method Room Air 07/15/24 10:03 BMI result Body Mass Index 23.2 Const General: no acute distress Orientation/consciousness: patient oriented x3 Eyes General: appearance normal, both eyes and all related structures Resp Effort & Inspection: normal respiratory effort and able to speak in complete sentences GI Abdomen image: 2 1. Feeling of discomfort with pressure Neuro General: patient oriented x3 Psych Mental Status: mental status grossly normal Assessment & Plan Assessment & Plan (1) Acute cystitis with hematuria: Code(s): N30.01 - Acute cystitis with hematuria Plan Patient is a 58-year-old female came in today to be evaluated for possible bladder infection Symptom has been going on for the past 3 days Patient says that she takes oxycodone regularly for her back pain But in spite of taking that she was having symptoms of pain so she decided to come in to be checked UA shows positive leuk esterase and blood Examination is benign except some pressure suprapubic I have sent Macrobid 100 mg b.i.d. for 5 days Patient was instructed to push fluids Review system reveals no fever no chills no nausea no vomiting Orders: Orders 2 Urine Culture Today N30.01 - Acute cystitis with hematuria Medications: New 2 nitrofurantoin monohyd/m-cryst 100 mg (Macrobid) must administer with a meal/food 100 mg PO Q12H 10 caps 0RF 5 days Coding Level of Care Code Est Pt Level 3 (92532) Diagnoses Acute cystitis with hematuria N30.01
[2024-07-15 10:03] VITALS: BP 148/90; PULSE 59; O2SAT 97; BMI 23.2
== END 2024-07-15 11:17 | disposition home or self-care (01) ==
PROVIDERS: PCP Internal Medicine; Visit Provider Internal Medicine
DX: N30.01 Acute cystitis with hematuria (principal); Z13.9 Encounter for screening, unspecified

== ENCOUNTER 2024-07-15 09:49 | Outpatient (REF) | payer OTHER, SELFPAY | END 2024-07-15 09:50 | disposition home or self-care (01) | LOC: HO.LNP 09:49 | PROVIDERS: PCP Internal Medicine; Visit Provider Internal Medicine | DX: N30.01 Acute cystitis with hematuria (principal) | CPT/HCPCS: 81003; 87086; 99212 ==

== ENCOUNTER 2024-07-28 15:50 | Outpatient (AMB) | payer OTHER, SELFPAY ==
[2024-07-28 15:52] VITALS: BP 164/90; PULSE 64; O2SAT 96; BMI 23.5
--- NOTE | 2024-07-28 15:52 | A.OFFPC_ITS ---
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: No Accompanied by: Self / Same As Patient Allergies atorvastatin Adverse Reaction (Intermediate, Verified 07/28/24 16:35) nausea, dizziness, fatigue Medication List - Last Reconciled 07/28/24 by Bayron Wheeler MD alendronate 70 mg PO QWEEK 3 months amlodipine 5 mg PO DAILY baclofen 10 mg PO TID fluticasone propionate 50 mcg/actuation (Flonase Allergy Relief) 1 spray intranasal DAILY 14 days gabapentin 400 mg PO BEDTIME 90 days ibuprofen 800 mg PO TID PRN lisinopril-hydrochlorothiazide 20-12.5 mg 1 tab PO DAILY 90 days naloxone 4 mg/actuation (Narcan) 4 mg intranasal Q2M PRN nitrofurantoin monohyd/m-cryst 100 mg (Macrobid) 100 mg PO Q12H 5 days omeprazole 20 mg PO DAILY oxycodone 10 mg PO Q6H PRN 28 days promethazine 25 mg PO Q6H PRN rosuvastatin 5 mg PO DAILY 30 days Tobacco use date assessed: 07/28/24 Dental Screening Dental Screen Date: 07/28/24 Did you have a dental visit in the last 12 months?: Yes Did you have a dental problem in the last 6 months where you did not have access to dental care?: No Was dental information given to patient?: Patient has dentist HPI Annual Exam HPI Details Patient comes in today for her annual physical examination States that she feels okay She denies any headaches or dizziness Denies any chest pains; no increased shortness of breath No nausea/vomiting, no abdominal pain No change in bowel habits noted She denies any acute urinary symptoms States that she still has chronic low back pain and joint pains and that her current meds have been helping with her pain adequately Needs a couple of her Rx refilled She had her follow-up labs done a couple of months ago and these have been discussed with her at her last visit She is up-to-date with all of her cancer screenings She had her gynecology exam and pap smear done in February 2024; and her next appt with gynecology will be in February 2025 She had her mammogram last done a year ago in 07/2023; she is scheduled for her next mammogram in a week on 08/05/24 Her BMD was last done last year in 08/2023 She will be due for repeat colonoscopy in 2030 [facility] Medical History Osteoporosis Depression Menopause Headache Bradycardia Insomnia GERD without esophagitis Lumbar degenerative disc disease Pure hypercholesterolemia Benign essential hypertension Surgical History History of colonoscopy (~09/29/20) Hx of tubal ligation History of esophagogastroduodenoscopy (EGD) H/O lumbar discectomy H/O hemorrhoidectomy Family History Mother Lung cancer Sister Colon cancer Sister Ovarian cancer Other Mental health problem Social History Household Members: Spouse and Children Housing: House Alcohol intake: current Alcohol intake frequency: holidays/special occasions only Patient Tobacco Use Status: Former Tobacco user Tobacco use type: Cigarette Cigarettes Per Day: 3 e-Cigarette/Vaping Use: Never Used Second Hand Smoke Exposure: Yes service: No Current occupational status: employed Current occupation: [employer] Cognitive needs: No Hearing needs: No Vision needs: Yes Female Reproductive History Menstrual Age of Menarche: 15 Questionnaire PHQ-9 Over the last 2 weeks, how often have you been bothered by any of the following problems? 1. Little interest or pleasure in doing things: not at all 2. Feeling down, depressed, or hopeless: not at all 3. Trouble falling or staying asleep, or sleeping too much: several days 4. Feeling tired or having little energy: nearly every day 5. Poor appetite or overeating: not at all 6. Feeling bad about yourself - or that you are a failure or have let yourself or your family down: not at all 7. Trouble concentrating on things, such as reading the newspaper or watching television: not at all 8. Moving or speaking so slowly that other people could have noticed. Or the opposite - being so fidgety or restless that you have been moving around a lot more than usual: not at all 9. Thoughts that you would be better off or of hurting yourself in some way: not at all Total score: 4 Depression Screening Interpretation: Positive Depression Screening Follow-up: Existing condition, Follow-up Visit Requested and Declines treatment Depression Screening Done: Yes 63760 - PHQ-9 Billing: Yes Source: Developed by Drs. Benjamín Chau, Miryam Fisher, Dangelo Dillon and colleagues, with an educational leopoldo from [employer] Thrive Questionnaire Date Thrive assessed: 07/28/24 I am a: Patient What is your living situation today?: I have a steady place to live Within the past 12 months, did the food you bought not last and you didn't have the money to get more?: Never true Within the past 12 months, did you worry whether your food would run out before you got money to buy more?: Never true Do you have trouble paying for medicines?: No Do you have trouble getting transportation to medical appointments?: No Do you have trouble paying your heating and electricity bill?: Yes Do you have trouble taking care of your child, family member or friend?: No Do you have trouble with day-to-day activities such as bathing, preparing meals, shopping, managing finances, etc.?: Yes Are you currently unemployed and looking for a job?: No Are you interested in more education?: No Please select the resources that you would like help with: Utilities Currently or been in a relationship where the following occur: No concerns reported THRIVE Score: 1 AUDIT C Alcohol Use Questionnaire (AUDIT-C) 1. How often do you have a drink containing alcohol?: Never 2. How many drinks containing alcohol do you have on a typical day when you are drinking?: 1 or 2 3. How often do you have six or more drinks on one occasion?: Never Total Score: 0 Score Reviewed/Action Taken: Yes PAKO-7 AMB Questionnaire PAKO-7 Date PAKO - 7 assessed: 07/28/24 Feeling nervous, anxious, or on edge: 0 = Not at all Not being able to stop or control worryin = Not at all Worrying too much about different things: 3 = Nearly every day Trouble relaxin = Nearly every day Being so restless that it is hard to sit still: 3 = Nearly every day Becoming easily annoyed or irritable: 0 = Not at all Feeling afraid as if something awful might happen: 0 = Not at all Total PAKO-7 score (0-4 normal; 5-9 mild; 10-14 moderate; 15-21 severe): 9 Source: Developed by Drs. Benjamín Chau, Miryam Fisher, Dangelo Dillon and colleagues, with an educational leopoldo from [employer] Review of Systems Const Denies chills, Denies fatigue, Denies fever(s), Denies headache(s) and Denies malaise Eyes Denies blurry vision, Denies change in vision, Denies irritation and Denies itchy eyes ENT Denies dysphagia, Denies dizziness, Denies otalgia, Denies headache(s), Reports hearing loss, Denies nasal congestion, Denies neck pain, Denies odynophagia, Denies sinus pain and Denies sore throat Card Denies chest pain, Denies rapid heart rate, Denies irregular heart rhythm, Denies palpitations and Reports dyspnea on exertion (mild) Resp Denies chest congestion, Denies cough, Reports dyspnea on exertion (mild) and Denies wheezing GI Denies abdominal pain, Denies bloating, Denies constipation, Denies dysphagia, Denies heartburn, Denies diarrhea, Denies nausea, Denies odynophagia and Denies vomiting Denies hematuria, Denies urinary frequency, Denies dysuria, Denies urinary incontinence and Denies urinary urgency Musc Reports back pain (over the lower back - chronic), Denies arthralgias, Denies joint swelling, Denies muscle weakness and Denies neck pain Skin/Breast Denies breast pain, Denies breast mass, Denies change in pigmentation, Denies lesions, Denies rash and Denies unusual bruising Neuro Denies dizziness, Denies headache(s) and Denies paresthesias Psych Denies anxiety and Denies depression Endo Denies fatigue and Denies palpitations Jeffery/Lymph Denies easy bruising Aller/Immun Denies itchy eyes and Denies wheezing Physical exam (Primary Care) Vital Signs: Last Vital Signs Pulse 64 07/28/24 15:52 BP 164/90 H 07/28/24 15:52 Pulse Ox 96 11/19/24 15:52 Oxygen Delivery Method Room Air 11/19/24 15:52 BMI result Body Mass Index 23.5 Tobacco/Smoking Status: Tobacco use Status Tobacco use date assessed 07/28/24 07/28/24 16:00 Patient Tobacco Use Status Former Tobacco user 07/28/24 16:00 Tobacco use type Cigarette 07/28/24 16:00 e-Cigarette/Vaping Use Never Used 07/28/24 16:00 PHQ-9: PHQ-9 Score PHQ-9: Total score 4 07/28/24 16:36 Depression Screening Interpretation: Positive Depression Screening Follow-up: Existing condition, Follow-up Visit Requested and Declines treatment Thrive Assessment: Date of Thrive Assessment Date Thrive assessed 07/28/24 07/28/24 16:00 Currently or been in a relationship where the following occur: No concerns reported Const General: no acute distress, alert and awake Orientation/consciousness: patient oriented x3 HENMT Head: Yes normocephalic and Yes atraumatic Ears: external ears normal, TM's normal bilaterally and EAC's normal General nose exam: No nasal discharge present Face and sinus: Yes normal facial exam and Yes sinuses nontender Teeth and gingiva: dentition normal Throat: Yes posterior oropharynx normal and Yes tonsils normal (no TP congestion) Eyes Eyelids: Yes eyelids normal Conjunctivae: conjunctivae normal Pupils: Equal, round and reactive pupils present EOM: EOMs intact bilaterally Neck Neck: Yes no lymphadenopathy and Yes supple Thyroid: Thyroid normal Resp Auscultation: clear to auscultation bilaterally, no rales and no wheezes Cardio Rate: regular rate Rhythm: regular rhythm Heart sounds: no murmurs GI Palpation (GI): Soft to palpation, nontender and No hepatosplenomegaly present Auscultation: normal bowel sounds General: Yes no CVA tenderness Back/Spine/Pelvis Back: no CVA tenderness Thoracic/Lumbar Spine: lumbar spinal tenderness Skin Lesions: no lesions Rashes: no rashes Neuro General: patient oriented x3, moves all extremities, no focal motor deficits and CN's II-XI intact bilaterally Cranial nerves: Yes Equal, round and reactive pupils present Cognition (Neuro): normal cognition Gait exam (Neuro): Normal gait present Extrem General: Yes no clubbing, cyanosis or edema Results Reviewed Results Reviewed: Laboratory Tests 06/08/24 06/08/24 08:14 08:15 WBC 7.6 Hgb 12.7 Hct 35.9 L Plt Count 346 Sodium 143 Potassium 3.6 Creatinine 0.70 Estimated GFR > 60 Fasting Glucose 106 H Calcium 9.9 AST 22 ALT 25 Triglycerides 477 H Cholesterol 259 H LDL Cholesterol, Calc TNP HDL Cholesterol 34 L 25-OH Vitamin D Total 38.6 TSH 0.65 Ur Specific [place] 1.025 Urine Protein Trace Urine Glucose (UA) Negative Urine Blood Trace H Urine Nitrite Negative Ur Leukocyte Esterase Negative Coding Level of Care Code Est Pt Prev Care 40-64y([id number]) Diagnoses Annual physical exam Z00.00 Pure hypercholesterolemia E78.00 Benign essential hypertension I10 Cardiac murmur R01.1 Shortness of breath R06.02 Dyspnea type: shortness of breath Age-related osteoporosis without current pathological fracture M81.0 Osteoporosis type: age-related Presence of current pathological fracture: without current pathological fracture Degeneration of intervertebral disc of lumbar region with discogenic back pain and lower extremity pain M51.362 Disc-related pain type: discogenic back pain and lower extremity pain GERD without esophagitis K21.9 Insomnia, unspecified type G47.00 Insomnia type: unspecified Episode of recurrent major depressive disorder, unspecified depression episode severity F33.9 Depression Type: major depressive disorder Major depression recurrence: recurrent Active/Remission status: currently active Major depression episode severity: unspecified Smoker F17.200 Additional Codes PHQ-9 - 49371 - PHQ-9 Billing: Yes ([id number]) Assessment & Plan Assessment & Plan (1) Annual physical exam: Code(s): Z00.00 - Encounter for general adult medical examination without abnormal findings Category: Medical Plan: Results of her labs done a couple of months ago have been reviewed with patient visit and will remind her again today of how she did on her recent lab She is up-to-date with all of her cancer screenings She had her gynecology exam and pap smear done in February 2024; and her next appt with gynecology will be in February 2025 She had her mammogram last done a year ago in 07/2023; she is scheduled for her next mammogram in a week on 08/05/24 Her BMD was last done last year in 08/2023 She will be due for repeat colonoscopy in 2030 (2) Pure hypercholesterolemia: Code(s): E78.00 - Pure hypercholesterolemia, unspecified Category: Medical Plan: She has been cautioned that her cholesterol levels have increased significantly from previous on her recent labs from a couple of months ago, with her serum TG now at 477 mg/dl and total cholesterol at 259 mg/dl Her LDL cholesterol was not available at the time but it had also increased significantly from previous in July 2023 Reinforced low cholesterol diet Patient admitted to poor compliance with her medication - states that she often skips it or forgets to take it but has been doing a lot better over the past couple of months Will continue her on the same dose for now - Atorvastatin 10 mg QD Will have her recheck her labs and fasting lipids in 3 months for follow up (3) Benign essential hypertension: Code(s): I10 - Essential (primary) hypertension Category: Medical Plan: Reinforced low-sodium diet - goal is systolic BP of at least 130 mm or less Continue Lisinopril-Hydrochlorothiazide 20-12.5 mg once a day (in AM) and Amlodipine 5 mg daily (in PM) (4) Cardiac murmur: Code(s): R01.1 - Cardiac murmur, unspecified Category: Medical Plan: Echocardiogram done in February 2024 revealed normal LV ejection fraction at 65-70%, with increased gradient across aortic valve and LVOT suggestive of increased stroke volume but there is no evidence of aortic stenosis. RV systolic pressure is normal and there is no gross pericardial effusion No further intervention is needed at this time (5) Dyspnea: Code(s): R06.00 - Dyspnea, unspecified Category: Medical Qualifiers: Dyspnea type: shortness of breath Qualified Code(s): R06.02 - Shortness of breath Plan: Patient is a chronic smoker She was previously sent her for chest x-rays and PFT for further evaluation - she still has not gotten her chest x-rays done yet and is still awaiting appointment for her PFTs (6) Osteoporosis: Code(s): M81.0 - Age-related osteoporosis without current pathological fracture Category: Medical Qualifiers: Osteoporosis type: age-related Presence of current pathological fracture: without current pathological fracture Qualified Code(s): M81.0 - Age- related osteoporosis without current pathological fracture Plan: Continue Alendronate 70 mg Q week as instructed Reinforced fall precautions and she is again encouraged to continue to try to stay active and exercise regularly Her repeat BMD on 09/04/2023 revealed (+) osteopenia based on the lowest T-score value of -2.3 in the lumbar spine applying World Health Organization criteria but her BMD has increased by 9.3% from baseline in the left femur but is unchanged in the lumbar spine Her index BMD done in March 2021 showed (+) osteoporosis based on the lowest T- score value of -2.5 in the femoral neck Will recheck her BMD again in 2 to 3 years for follow up (7) Lumbar degenerative disc disease: Code(s): M51.36 - Other intervertebral disc degeneration, lumbar region Category: Medical Qualifiers: Disc-related pain type: discogenic back pain and lower extremity pain Qualified Code(s): M51.362 - Other intervertebral disc degeneration, lumbar region with discogenic back pain and lower extremity pain Plan: Patient continues to c/o (chronic) low back pain and frequent radiation of pain down her left leg - states that her current Rx help keep her symptoms manageable but they are not lasting as long as they used to EMG and NCV done in December 2021 revealed (+) chronic bilateral lower lumbar radiculopathy with no evidence of acute pathology. Study was otherwise unremarkable with no evidence of any significant neuropathy Reinforced activity and weight lifting restrictions to minimize aggravating her back pain Continue Oxycodone 10 mg every 6 hours as needed, Baclofen 10 mg TID PRN, Ibuprofen 800 mg 3 times a day with food and Gabapentin 400 mg Q HS (8) GERD without esophagitis: Code(s): K21.9 - Gastro-esophageal reflux disease without esophagitis Category: Medical Plan: Dietary restrictions reinforced Continue Omeprazole 20 mg QD (9) Insomnia: Code(s): G47.00 - Insomnia, unspecified Category: Medical Qualifiers: Insomnia type: unspecified Qualified Code(s): G47.00 - Insomnia, unspecified Plan: Sleep hygiene reinforced Trazodone has not helped much and she could not tolerate Zolpidem (nightmares) (10) Depression: Code(s): F32.A - Depression, unspecified Category: Medical Qualifiers: Depression Type: major depressive disorder Major depression recurrence: recurrent Active/Remission status: currently active Major depression episode severity: unspecified Qualified Code(s): F33.9 - Major depressive disorder, recurrent, unspecified Plan: She was on Duloxetine 30 mg QD in the past but she appears to have self- discontinued this at some point - unclear as to when States that she is currently doing better with her mood and does not think she needs to take any Rx additionally at this time (11) Smoker: Code(s): F17.200 - Nicotine dependence, unspecified, uncomplicated Category: Social Hx Plan: Patient is counseled again on smoking cessation, especially with her recent SUAZO Plan Follow up in 3 months Orders: Orders Comprehensive [place]. Panel Fast 3 Months E78.00 - Pure hypercholesterolemia, unspecified Lipid Panel 3 Months E78.00 - Pure hypercholesterolemia, unspecified Complete Blood Count Auto Diff 3 Months D64.9 - Anemia, unspecified Medications: New oxycodone-acetaminophen 10-325 mg Partial Fill upon patient request. 1 tab PO Q6H 28 days PRN 112 tabs 0RF pain M51.362 - Other intervertebral disc degeneration, lumbar region with discogenic back pain and lower extremity pain budesonide 32 mcg/actuation administer into each nostril 1 spray intranasal DAILY 8.43 mL 2RF Discontinued oxycodone Partial Fill upon patient request. Discontinued Reason: Doctor's Order 10 mg PO Q6H 28 days PRN 112 tabs 0RF pain
== END 2024-07-28 16:51 | disposition home or self-care (01) ==
PROVIDERS: PCP Internal Medicine; Visit Provider Internal Medicine
DX: Z00.00 Encounter for general adult medical examination without abnormal findings (principal); E78.00 Pure hypercholesterolemia, unspecified; F33.9 Major depressive disorder, recurrent, unspecified; I10 Essential (primary) hypertension; R01.1 Cardiac murmur, unspecified; R06.02 Shortness of breath; M81.0 Age-related osteoporosis without current pathological fracture; M51.362 Other intervertebral disc degeneration, lumbar region with discogenic back pain and lower extremity pain; K21.9 Gastro-esophageal reflux disease without esophagitis; G47.00 Insomnia, unspecified; F17.200 Nicotine dependence, unspecified, uncomplicated

== ENCOUNTER → 2024-07-28 15:50 | Outpatient (BNVA) | payer OTHER, SELFPAY | PROVIDERS: PCP Internal Medicine; Visit Provider Internal Medicine | DX: Z00.00 Encounter for general adult medical examination without abnormal findings (principal); E78.00 Pure hypercholesterolemia, unspecified; I10 Essential (primary) hypertension; R01.1 Cardiac murmur, unspecified; R06.02 Shortness of breath; M81.0 Age-related osteoporosis without current pathological fracture; M51.362 Other intervertebral disc degeneration, lumbar region with discogenic back pain and lower extremity pain; K21.9 Gastro-esophageal reflux disease without esophagitis; G47.00 Insomnia, unspecified; F33.9 Major depressive disorder, recurrent, unspecified; F17.200 Nicotine dependence, unspecified, uncomplicated; Z71.6 Tobacco abuse counseling | CPT/HCPCS: 96127; 99396 ==

== ENCOUNTER 2024-08-05 07:40 | Outpatient (REF) | payer OTHER, SELFPAY ==
--- NOTE | ~2024-08-05 | MM_ITS ---
EXAMINATION: MM SCREENING DIGITAL BREAST TOMOSYNTHESIS, BILATERAL CLINICAL INFORMATION: Screening. Asymptomatic. COMPARISON: Mammography: Comparison is made with available priors TECHNIQUE: Digital breast mammography with tomosynthesis is performed in both the craniocaudal and mediolateral oblique views along with computer-aided detection (CAD). FINDINGS: There are scattered areas of fibroglandular density (ACR BI-RADS breast composition Category b). Right marker clip. Bilateral circumscribed oval masses which wax and wane consistent with benign fibrocystic changes. There are no significant masses, abnormal calcifications, or other abnormalities. MM/MM tomosynthesis screening BI IMPRESSION: No mammographic evidence of malignancy. ASSESSMENT: BI-RADS BI-RADS 2 - Benign Findings RECOMMENDATION: Routine annual mammography screening. 1 year F/U This examination should not preclude the clinical evaluation of a suspicious palpable abnormality. This patient's information was entered into a reminder system with a target due date for their next mammogram. Electronically signed by: Jessica Leiva DO 08/14/2024 08:56 AM SUNIL
== END 2024-08-05 07:41 | disposition home or self-care (01) ==
LOC: HO.MAMMO 07:40
PROVIDERS: PCP Internal Medicine; Visit Provider Internal Medicine
DX: Z12.31 Encounter for screening mammogram for malignant neoplasm of breast (principal)
CPT/HCPCS: 77063; 77067

== ENCOUNTER → 2024-08-05 07:45 | Outpatient (BNV) | payer OTHER, SELFPAY | PROVIDERS: PCP Internal Medicine; Visit Provider Internal Medicine | DX: Z12.31 Encounter for screening mammogram for malignant neoplasm of breast (principal) | CPT/HCPCS: 77063; 77067 ==

== ENCOUNTER 2024-09-03 15:29 | Outpatient (REF) | payer OTHER, SELFPAY ==
[2024-09-03 10:24] VITALS: PULSE 68; O2SAT 99
--- NOTE | 2024-09-03 15:35 | PFT_ITS ---
Flows: FEV1: 112 % of predicted at 2.56 L FVC: 95 % of predicted at 2.74 L FEV1/FVC: 93 % Bronchodilator response: Absent Volumes: Total lung capacity: 94 % of predicted at 4.3 to L Residual volume: 78 % of predicted at 1.20 L Slow vital capacity: 100 % of predicted at 3.12 L Expiratory reserve volume: 69 % of predicted at 0.51 L Diffusion capacity: Normal Impression: No obstructive or restrictive ventilatory defect. No bronchodilator response. Normal pulmonary function test. MTDD
== END 2024-09-03 15:30 | disposition home or self-care (01) ==
LOC: HO.RESP 15:29
PROVIDERS: PCP Internal Medicine; Visit Provider Internal Medicine
DX: R06.00 Dyspnea, unspecified (principal); F17.200 Nicotine dependence, unspecified, uncomplicated
CPT/HCPCS: 94010; 94640; 94727; 94729

== ENCOUNTER → 2024-09-03 15:35 | Outpatient (BNV) | payer OTHER, SELFPAY | PROVIDERS: PCP Internal Medicine; Visit Provider Internal Medicine Pulmonary Disease | DX: R06.00 Dyspnea, unspecified (principal); F17.210 Nicotine dependence, cigarettes, uncomplicated | CPT/HCPCS: 94060; 94727; 94729 ==

== ENCOUNTER 2024-11-03 07:28 | Outpatient (REF) | payer OTHER, SELFPAY ==
[2024-11-03 07:43] LABS: MANUAL DIFF FLAG NO
[2024-11-03 08:28] LABS: Basophils Percent Auto 0.5 % (0-2); Eosinophils Absolute Auto 0.2 X10*3/uL (0.0-0.4); Eosinophils Percent Auto 2.1 % (0-4); Hematocrit 34.6 % (37.0-47.0); Hemoglobin 12.3 g/dl (12.0-16.0); Imm Gran Abs Auto 0.02 X10*3/uL (0.00-0.03); Imm Gran Pct Auto 0.3 % (0.0-0.4); Lymphocytes Percent Auto 38.4 % (20-40); Mean Corpuscular HGB Conc 35.5 g/dl (31.0-35.0); Mean Corpuscular Hemoglobin 33.3 pg (27.0-33.0); Mean Corpuscular Volume 93.8 fL (80.0-98.0); Mean Platelet Volume 11.4 fL (9.4-12.3); Monocytes Absolute Auto 0.4 X10*3/uL (0.1-1.2); Neutrophils Absolute Auto 4.2 x10*3/uL (2.0-8.3); Neutrophils Percent Auto 53.7 % (45-73); Platelet Count 311 X10*3/uL (160-400); Red Blood Count 3.69 X10*6/uL (4.20-5.50); Red Cell Distribution Width 11.9 % (11.0-16.0); White Blood Count 7.7 X10*3/uL (4.8-10.8)
[2024-11-03 08:41] LABS: Appearance Urine Clear; Color Urine Yellow; Glucose Urine UA Negative (Negative); Leukocyte Esterase Urine Negative (Negative); Nitrite Urine Negative (Negative); PH 6.5 (5.0-9.0); UMIC TRIGGER UACC YES; Urine Blood Small (1+) (Negative); Urine Ketones Negative (Negative); Urine Protein Trace mg/dL (Neg-Trace)
[2024-11-03 08:43] LABS: Bacteria Urine None Seen (None Seen); Hyaline Casts Urine 0-2 /LPF (0-2); Squamous Epithelial Cell Urine 0-2 /HPF (0-2); WBC Urine 0-5 /HPF (0-5)
[2024-11-03 09:12] LABS: Alanine Aminotransferase 30 U/L (0-31); Albumin Level 4.6 g/dL (3.5-5.0); Alkaline Phosphatase 92 U/L (39-117); Anion Gap 11 (12-20); Aspartate Amino Transferase 23 U/L (5-31); Bilirubin Total 0.5 mg/dL (0.0-1.0); Blood Urea Nitrogen 23 mg/dL (9-16); Calcium 9.8 mg/dL (8.4-10.2); Carbon Dioxide 26 mmol/L (22-29); Chloride 109 mmol/L (96-108); Cholesterol 166 mg/dL (<200); Estimated Glomerular Filt Rate > 60; Glucose Fasting 100 mg/dL (60-99); HDL Cholesterol 38 mg/dL (>40); LDL Cholesterol Calculated 92 mg/dL (<100); Potassium 3.2 mmol/L (3.3-5.1); Sodium 143 mmol/L (135-145); Total Protein 7.3 g/dL (6.5-8.0); Triglycerides 181 mg/dL (<150)
[2024-11-03 09:30] LABS: Vitamin D 25-OH Total 40.7 ng/mL (>30)
== END 2024-11-03 07:29 | disposition home or self-care (01) ==
LOC: HO.LAB 07:28
PROVIDERS: PCP Internal Medicine; Visit Provider Internal Medicine
DX: M79.604 Pain in right leg (principal); M79.605 Pain in left leg; M25.552 Pain in left hip; I10 Essential (primary) hypertension; R01.1 Cardiac murmur, unspecified; R06.02 Shortness of breath; M81.0 Age-related osteoporosis without current pathological fracture; M51.362 Other intervertebral disc degeneration, lumbar region with discogenic back pain and lower extremity pain; K21.9 Gastro-esophageal reflux disease without esophagitis; G47.00 Insomnia, unspecified; F33.9 Major depressive disorder, recurrent, unspecified; E78.00 Pure hypercholesterolemia, unspecified; E55.9 Vitamin D deficiency, unspecified; D64.9 Anemia, unspecified; R30.0 Dysuria; F17.200 Nicotine dependence, unspecified, uncomplicated; Z79.899 Other long term (current) drug therapy
CPT/HCPCS: 36415; 80053; 80061; 81001; 82306; 84443; 85025; 96127; 99212

== ENCOUNTER 2024-11-03 16:46 | Outpatient (AMB) | payer OTHER, SELFPAY ==
--- NOTE | 2024-11-03 16:53 | A.OFFPC_ITS ---
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: No Accompanied by: Self / Same As Patient Allergies atorvastatin Adverse Reaction (Intermediate, Verified 11/03/24 17:14) nausea, dizziness, fatigue Medication List - Last Reconciled 11/03/24 by Bayron Wheeler MD alendronate 70 mg PO QWEEK 3 months amlodipine 5 mg PO DAILY baclofen 10 mg PO TID budesonide 32 mcg/actuation 1 spray intranasal DAILY fluticasone propionate 50 mcg/actuation (Flonase Allergy Relief) 1 spray intranasal DAILY 14 days gabapentin 400 mg PO BEDTIME 90 days ibuprofen 800 mg PO TID PRN lisinopril-hydrochlorothiazide 20-12.5 mg 1 tab PO DAILY 90 days naloxone 4 mg/actuation (Narcan) 4 mg intranasal Q2M PRN nitrofurantoin monohyd/m-cryst 100 mg (Macrobid) 100 mg PO Q12H 5 days omeprazole 20 mg PO DAILY oxycodone-acetaminophen 10-325 mg 1 tab PO Q6H PRN 28 days promethazine 25 mg PO Q6H PRN rosuvastatin 5 mg PO DAILY 30 days Tobacco use date assessed: 11/03/24 Dental Screening Dental Screen Date: 11/03/24 Did you have a dental visit in the last 12 months?: Yes Did you have a dental problem in the last 6 months where you did not have access to dental care?: No Was dental information given to patient?: Patient has dentist HPI 3 Months f/u HPI Details Patient comes in today for her follow up visit States that she feels okay except for increasing pain in her left hip area as well as some left leg weakness which she states started after a recent fall a few weeks ago Recalls that she was just experiencing some pain around her left hip at the time but started noticing some weakness of the left leg as well as few days later and the weakness seems to have gotten slowly worse with the increase in her left hip pain since She denies any headaches or dizziness Denies any chest pains, no increased SOB No nausea/vomiting, no abdominal pain No change in bowel habits noted States that her chronic low back pain and joint pains remain adequately controlled on her current meds but reports experiencing (+) persistent pain now in both of her lower legs - describes the pain as burning and deep in nature and that they often feel worse at night She had her follow up labs done earlier today - to discuss her results States that she also had her annual mammogram done back in late July 2024 and would like to know how this came out [facility] Medical History Osteoporosis Depression Menopause Headache Bradycardia Insomnia GERD without esophagitis Lumbar degenerative disc disease Pure hypercholesterolemia Benign essential hypertension Surgical History History of colonoscopy (~09/29/20) Hx of tubal ligation History of esophagogastroduodenoscopy (EGD) H/O lumbar discectomy H/O hemorrhoidectomy Family History Mother Lung cancer Sister Colon cancer Sister Ovarian cancer Other Mental health problem Social History Household Members: Spouse and Children Housing: House Alcohol intake: current Alcohol intake frequency: holidays/special occasions only Patient Tobacco Use Status: Former Tobacco user Tobacco use type: Cigarette Cigarettes Per Day: 3 e-Cigarette/Vaping Use: Never Used Second Hand Smoke Exposure: Yes service: No Current occupational status: employed 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 1. Little interest or pleasure in doing things: not at all 2. Feeling down, depressed, or hopeless: not at all 3. Trouble falling or staying asleep, or sleeping too much: several days 4. Feeling tired or having little energy: nearly every day 5. Poor appetite or overeating: not at all 6. Feeling bad about yourself - or that you are a failure or have let yourself or your family down: not at all 7. Trouble concentrating on things, such as reading the newspaper or watching television: not at all 8. Moving or speaking so slowly that other people could have noticed. Or the opposite - being so fidgety or restless that you have been moving around a lot more than usual: not at all 9. Thoughts that you would be better off or of hurting yourself in some way: not at all Total score: 4 Depression Screening Interpretation: Positive Depression Screening Follow-up: Existing condition, Follow-up Visit Requested and Declines treatment Depression Screening Done: Yes 86690 - PHQ-9 Billing: Yes Source: Developed by Drs. Benjamín Chau, Miryam Fisher, Dangelo Dillon and colleagues, with an educational leopoldo from [facility]. Thrive Questionnaire Date Thrive assessed: 11/03/24 I am a: Patient What is your living situation today?: I have a steady place to live Within the past 12 months, did the food you bought not last and you didn't have the money to get more?: Never true Within the past 12 months, did you worry whether your food would run out before you got money to buy more?: Never true Do you have trouble paying for medicines?: No Do you have trouble getting transportation to medical appointments?: No Do you have trouble paying your heating and electricity bill?: Yes Do you have trouble taking care of your child, family member or friend?: No Do you have trouble with day-to-day activities such as bathing, preparing meals, shopping, managing finances, etc.?: Yes Are you currently unemployed and looking for a job?: No Are you interested in more education?: No Please select the resources that you would like help with: Utilities Currently or been in a relationship where the following occur: No concerns reported THRIVE Score: 1 AUDIT C Alcohol Use Questionnaire (AUDIT-C) 1. How often do you have a drink containing alcohol?: Never 3. How often do you have six or more drinks on one occasion?: Never Total Score: 0 Score Reviewed/Action Taken: Yes PAKO-7 AMB Questionnaire PAKO-7 Date PAKO - 7 assessed: 11/03/24 Feeling nervous, anxious, or on edge: 0 = Not at all Not being able to stop or control worryin = Not at all Worrying too much about different things: 3 = Nearly every day Trouble relaxin = Nearly every day Being so restless that it is hard to sit still: 3 = Nearly every day Becoming easily annoyed or irritable: 0 = Not at all Feeling afraid as if something awful might happen: 0 = Not at all Total PAKO-7 score (0-4 normal; 5-9 mild; 10-14 moderate; 15-21 severe): 9 Source: Developed by Drs. Benjamín Chau, Miryam Fisher, Dangelo Dillon and colleagues, with an educational leopoldo from [facility]. Review of Systems Const Denies chills, Denies fatigue, Denies fever(s) and Denies headache(s) ENT Denies dysphagia, Denies dizziness, Denies otalgia, Denies headache(s), Reports hearing loss, Denies neck pain, Denies odynophagia and Denies sore throat Card Denies chest pain, Denies irregular heart rhythm, Denies palpitations and Reports dyspnea on exertion (mild) Resp Denies chest congestion, Denies cough and Reports dyspnea on exertion (mild) GI Denies abdominal pain, Denies constipation, Denies dysphagia, Denies heartburn, Denies diarrhea, Denies nausea, Denies odynophagia and Denies vomiting Denies urinary frequency, Denies dysuria and Denies urinary urgency Musc Reports back pain (over the lower back - chronic), Reports arthralgias (around the left hip area), Reports muscle weakness (in the left leg) and Denies neck pain Skin/Breast Denies rash Neuro Details: increasing pain in both lower extremities - see HPI Denies dizziness, Denies headache(s) and Denies paresthesias Psych Denies anxiety and Denies depression Endo Denies fatigue and Denies palpitations Jeffery/Lymph Denies easy bruising Physical exam (Primary Care) Vital Signs: Last Vital Signs Pulse 51 11/03/24 16:54 BP 134/82 11/03/24 16:54 Pulse Ox 98 11/03/24 16:54 Oxygen Delivery Method Room Air 11/03/24 16:54 BMI result Body Mass Index 22.6 Tobacco/Smoking Status: Tobacco use Status Tobacco use date assessed 11/03/24 11/03/24 16:58 Patient Tobacco Use Status Former Tobacco user 11/03/24 16:58 Tobacco use type Cigarette 11/03/24 16:58 e-Cigarette/Vaping Use Never Used 11/03/24 16:58 PHQ-9: PHQ-9 Score PHQ-9: Total score 4 11/03/24 17:14 Depression Screening Interpretation: Positive Depression Screening Follow-up: Existing condition, Follow-up Visit Requested and Declines treatment Thrive Assessment: Date of Thrive Assessment Date Thrive assessed 11/03/24 11/03/24 16:58 Currently or been in a relationship where the following occur: No concerns reported Const General: no acute distress and alert HENMT Ears: TM's normal bilaterally and EAC's normal Throat: Yes posterior oropharynx normal and Yes tonsils normal (no TP congestion) Neck Neck: Yes no lymphadenopathy and Yes supple Thyroid: Thyroid normal Resp Auscultation: clear to auscultation bilaterally, no rales and no wheezes Cardio Rate: regular rate Rhythm: regular rhythm Heart sounds: Murmur heart sound present systolic III/ and at the left sternal border GI Palpation (GI): Soft to palpation and nontender Auscultation: normal bowel sounds General: Yes no CVA tenderness Back/Spine/Pelvis Back: no CVA tenderness Thoracic/Lumbar Spine: lumbar spinal tenderness Skin Rashes: no rashes Extrem General: Yes no clubbing, cyanosis or edema Left lower extremity: hip/thigh Details: tenderness Location: of the hip Location: anterolaterally Results Reviewed Results Reviewed: Laboratory Tests 11/03/24 11/03/24 07:42 07:45 WBC 7.7 Hgb 12.3 Hct 34.6 L Plt Count 311 Sodium 143 Potassium 3.2 L Creatinine 0.65 Estimated GFR > 60 Fasting Glucose 100 H Calcium 9.8 AST 23 ALT 30 Triglycerides 181 H Cholesterol 166 LDL Cholesterol, Calc 92 HDL Cholesterol 38 L 25-OH Vitamin D Total 40.7 TSH 2.10 Ur Specific [place] 1.020 Urine Protein Trace Urine Glucose (UA) Negative Urine Blood Small (1+) H Urine Nitrite Negative Ur Leukocyte Esterase Negative Coding Level of Care Code Est Pt Level 4 (42592) Diagnoses Bilateral lower extremity pain M79.604; M79.605 Left hip pain M25.552 Pure hypercholesterolemia E78.00 Benign essential hypertension I10 Cardiac murmur R01.1 Shortness of breath R06.02 Dyspnea type: shortness of breath Age-related osteoporosis without current pathological fracture M81.0 Osteoporosis type: age-related Presence of current pathological fracture: without current pathological fracture Degeneration of intervertebral disc of lumbar region with discogenic back pain and lower extremity pain M51.362 Disc-related pain type: discogenic back pain and lower extremity pain GERD without esophagitis K21.9 Insomnia, unspecified type G47.00 Insomnia type: unspecified Episode of recurrent major depressive disorder, unspecified depression episode severity F33.9 Depression Type: major depressive disorder Major depression recurrence: recurrent Active/Remission status: currently active Major depression episode severity: unspecified Smoker F17.200 Additional Codes PHQ-9 - 46577 - PHQ-9 Billing: Yes ([id number]) Assessment & Plan Assessment & Plan (1) Bilateral lower extremity pain: Code(s): M79.604 - Pain in right leg; M79.605 - Pain in left leg Category: Medical Plan: Discussed with patient that her recently increasing bilateral lower extremity pain may likely be due to neuropathy or they could be radicular pain from her lower back As she has not had any imaging done on her lumbar spine in a few years, will have her get repeat lumbar spine x-rays for further evaluation Will also send her for EMG and NCV of the lower extremities and if the tests reveal her lower back to be the source of her symptoms, we can then consider getting an MRI of the lumbar spine for further work ups (2) Left hip pain: Code(s): M25.552 - Pain in left hip Category: Medical Plan: Discussed concerns about the possibility of a hip fracture that is causing her current left leg weakness, based on her symptoms Will send her for left hip x-rays [facility] for further evaluation (3) Pure hypercholesterolemia: Code(s): E78.00 - Pure hypercholesterolemia, unspecified Category: Medical Plan: Results of her labs done earlier today reviewed and discussed with patient - she is advised that her cholesterol levels have improved significantly from previous Reinforced low cholesterol diet Continue Rosuvastatin 5 mg QD - states that she is tolerating her current Rx with no issues (she could not tolerate Atorvastatin due to side effects 0 - fatigue, nausea, dizziness) Will have her recheck her labs and fasting lipids in 4 months for follow up (4) Benign essential hypertension: Code(s): I10 - Essential (primary) hypertension Category: Medical Plan: Reinforced low-sodium diet - goal is systolic BP of at least 130 mm or less Continue Lisinopril-Hydrochlorothiazide 20-12.5 mg once a day (in AM) and Amlodipine 5 mg daily (in PM) (5) Cardiac murmur: Code(s): R01.1 - Cardiac murmur, unspecified Category: Medical Plan: Echocardiogram done in February 2024 revealed normal LV ejection fraction at 65-70%, with increased gradient across aortic valve and LVOT suggestive of increased stroke volume but there is no evidence of aortic stenosis. RV systolic pressure is normal and there is no gross pericardial effusion No further intervention is needed at this time (6) Dyspnea: Code(s): R06.00 - Dyspnea, unspecified Category: Medical Qualifiers: Dyspnea type: shortness of breath Qualified Code(s): R06.02 - Shortness of breath Plan: Patient is a chronic smoker She was previously sent her for chest x-rays and PFT for further evaluation - she still has not gotten her chest x-rays done yet and is still awaiting appointment for her PFTs Have advised her to get her chest x-rays done as well (updated) when she goes for her hip x-rays (7) Osteoporosis: Code(s): M81.0 - Age-related osteoporosis without current pathological fracture Category: Medical Qualifiers: Osteoporosis type: age-related Presence of current pathological fracture: without current pathological fracture Qualified Code(s): M81.0 - Age- related osteoporosis without current pathological fracture Plan: Continue Alendronate 70 mg Q week as instructed Reinforced fall precautions and she is again encouraged to continue to try to stay active and exercise regularly Her last BMD on 09/04/2023 revealed (+) osteopenia based on the lowest T-score value of -2.3 in the lumbar spine applying World Health Organization criteria but her BMD has increased by 9.3% from baseline in the left femur but is unchanged in the lumbar spine Her index BMD done in March 2021 showed (+) osteoporosis based on the lowest T- score value of -2.5 in the femoral neck Will recheck her BMD again in 2 to 3 years for follow up (8) Lumbar degenerative disc disease: Code(s): M51.36 - Other intervertebral disc degeneration, lumbar region Category: Medical Qualifiers: Disc-related pain type: discogenic back pain and lower extremity pain Qualified Code(s): M51.362 - Other intervertebral disc degeneration, lumbar region with discogenic back pain and lower extremity pain Plan: Patient continues to c/o (chronic) low back pain and frequent radiation of pain down her left leg - states that her current Rx help keep her symptoms manageable but they are not lasting as long as they used to EMG and NCV done in December 2021 revealed (+) chronic bilateral lower lumbar radiculopathy with no evidence of acute pathology. Study was otherwise unremarkable with no evidence of any significant neuropathy but as her lower extremity symptoms appear to be getting worse lately, will have her go for repeat EMG & NCV for further evaluation Reinforced activity and weight lifting restrictions to minimize aggravating her back pain Continue Oxycodone 10 mg every 6 hours as needed, Baclofen 10 mg TID PRN, Ibuprofen 800 mg 3 times a day with food and Gabapentin 400 mg Q HS in the ri antime (9) GERD without esophagitis: Code(s): K21.9 - Gastro-esophageal reflux disease without esophagitis Category: Medical Plan: Dietary restrictions reinforced Continue Omeprazole 20 mg QD (10) Insomnia: Code(s): G47.00 - Insomnia, unspecified Category: Medical Qualifiers: Insomnia type: unspecified Qualified Code(s): G47.00 - Insomnia, unspecified Plan: Sleep hygiene reinforced Trazodone has not helped much and she could not tolerate Zolpidem (nightmares) and she does not wish to try anything else to help her sleep for now (11) Depression: Code(s): F32.A - Depression, unspecified Category: Medical Qualifiers: Depression Type: major depressive disorder Major depression recurrence: recurrent Active/Remission status: currently active Major depression episode severity: unspecified Qualified Code(s): F33.9 - Major depressive disorder, recurrent, unspecified Plan: She was on Duloxetine 30 mg QD in the past but she appears to have self- discontinued this at some point - unclear as to when she stopped her Rx States that she is currently doing better with her mood and does not feel that she needs to take any Rx additionally at this time (12) Smoker: Code(s): F17.200 - Nicotine dependence, unspecified, uncomplicated Category: Social Hx Plan: Patient is counseled again on smoking cessation, especially with her recurrent SUAZO Plan Follow up in 4 months Orders: Orders NE nerve conduction velocity 11/03/24 M79.604 - Pain in right leg, M79.605 - Pain in left leg NE electromyogram (EMG) 11/03/24 M79.604 - Pain in right leg, M79.605 - Pain in left leg Lipid Panel 4 Months E78.00 - Pure hypercholesterolemia, unspecified TSH reflex Free T4 4 Months E78.00 - Pure hypercholesterolemia, unspecified Vitamin D 25-OH Total 4 Months E55.9 - Vitamin D deficiency, unspecified XR hip LT min 2V 11/03/24 M25.552 - Pain in left hip Comprehensive [place]. Panel Fast 4 Months E78.00 - Pure hypercholesterolemia, unspecified XR lumbar spine 2-3V Today M54.50 - Low back pain, unspecified Complete Blood Count Auto Diff 4 Months D64.9 - Anemia, unspecified UA CC w/rflx Micro + Cult 4 Months R30.0 - Dysuria Vitamin B12 and Folate 4 Months E53.8 - Deficiency of other specified B group vitamins
[2024-11-03 16:54] VITALS: BP 134/82; PULSE 51; O2SAT 98; BMI 22.6
== END 2024-11-03 17:31 | disposition home or self-care (01) ==
PROVIDERS: PCP Internal Medicine; Visit Provider Internal Medicine
DX: M79.604 Pain in right leg (principal); F33.9 Major depressive disorder, recurrent, unspecified; M79.605 Pain in left leg; M25.552 Pain in left hip; E78.00 Pure hypercholesterolemia, unspecified; I10 Essential (primary) hypertension; R01.1 Cardiac murmur, unspecified; R06.02 Shortness of breath; M81.0 Age-related osteoporosis without current pathological fracture; M51.362 Other intervertebral disc degeneration, lumbar region with discogenic back pain and lower extremity pain; K21.9 Gastro-esophageal reflux disease without esophagitis; G47.00 Insomnia, unspecified

== ENCOUNTER 2024-11-24 08:03 | Outpatient (REF) | payer OTHER, SELFPAY ==
--- NOTE | 2024-11-24 08:06 | EMG_ITS ---
Bilateral tibial and peroneal motor studies were performed. Bilateral superficial peroneal and sural sensory studies were performed. Tibial H reflexes were obtained and paraspinal muscles were tested with a needle. IMPRESSION: 1. Chronic bilateral lower lumbar radiculopathy. 2. Bilateral superficial sensory peroneal neuropathy. MD MISSY Suggs/ROSANGELA / [id number]
== END 2024-11-24 08:04 | disposition home or self-care (01) ==
LOC: HO.NEURO 08:03
PROVIDERS: PCP Internal Medicine; Visit Provider Internal Medicine
DX: M79.604 Pain in right leg (principal); M79.605 Pain in left leg
CPT/HCPCS: 95886; 95911

== ENCOUNTER 2025-03-15 06:31 | Outpatient (REF) | payer OTHER, SELFPAY ==
[2025-03-15 06:47] LABS: MANUAL DIFF FLAG NO
[2025-03-15 07:29] LABS: Appearance Urine Clear; Glucose Urine UA Negative (Negative); PH 7.0 (5.0-9.0); Specific Gravity - Urine 1.025 (1.005-1.025); UMIC TRIGGER UACC YES
[2025-03-15 07:31] LABS: Hematocrit 33.5 % (37.0-47.0); Hemoglobin 12.1 g/dl (12.0-16.0); Imm Gran Abs Auto 0.02 X10*3/uL (0.00-0.03); Imm Gran Pct Auto 0.2 % (0.0-0.4); Lymphocytes Absolute Auto 3.2 X10*3/uL (1.2-4.9); Mean Corpuscular HGB Conc 36.1 g/dl (31.0-35.0); Mean Corpuscular Hemoglobin 33.4 pg (27.0-33.0); Mean Corpuscular Volume 92.5 fL (80.0-98.0); NRBC Abs Auto 0.000 X10*3/uL (0.0-0.012); NRBC Pct Auto 0.0 /100WBC (0.0-0.2); Platelet Count 314 X10*3/uL (160-400); Red Blood Count 3.62 X10*6/uL (4.20-5.50); White Blood Count 8.3 X10*3/uL (4.8-10.8)
[2025-03-15 07:34] LABS: UACC Culture Trigger YES
[2025-03-15 07:51] LABS: Alanine Aminotransferase 32 U/L (0-31); Albumin Level 4.9 g/dL (3.5-5.0); Alkaline Phosphatase 81 U/L (39-117); Aspartate Amino Transferase 27 U/L (5-31); Blood Urea Nitrogen 18 mg/dL (9-16); Calcium 9.6 mg/dL (8.4-10.2); Cholesterol 232 mg/dL (<200); Estimated Glomerular Filt Rate > 60; HDL Cholesterol 36 mg/dL (>40); Total Protein 6.9 g/dL (6.5-8.0); Triglycerides 276 mg/dL (<150)
[2025-03-15 08:12] LABS: Anion Gap 13 (12-20); Carbon Dioxide 24 mmol/L (22-29); Chloride 108 mmol/L (96-108); Potassium 2.9 mmol/L (3.3-5.1); Sodium 142 mmol/L (135-145)
[2025-03-15 08:29] LABS: Folate 13.7 ng/mL (> or = 4.0); Vitamin B12 467 pg/mL (200-900)
== END 2025-03-15 06:32 | disposition home or self-care (01) ==
LOC: HO.LAB 06:31
PROVIDERS: PCP Internal Medicine; Visit Provider Internal Medicine
DX: E78.00 Pure hypercholesterolemia, unspecified (principal); D64.9 Anemia, unspecified; E53.8 Deficiency of other specified B group vitamins; E55.9 Vitamin D deficiency, unspecified; I10 Essential (primary) hypertension; R01.1 Cardiac murmur, unspecified; R06.02 Shortness of breath; E87.6 Hypokalemia; M81.0 Age-related osteoporosis without current pathological fracture; M51.362 Other intervertebral disc degeneration, lumbar region with discogenic back pain and lower extremity pain; M25.552 Pain in left hip; M25.561 Pain in right knee; M25.562 Pain in left knee; K21.9 Gastro-esophageal reflux disease without esophagitis; G47.00 Insomnia, unspecified; F33.9 Major depressive disorder, recurrent, unspecified; F17.200 Nicotine dependence, unspecified, uncomplicated; Z71.6 Tobacco abuse counseling
CPT/HCPCS: 36415; 80053; 80061; 81001; 82306; 82607; 82746; 84443; 85025; 87086; 96127; 99212

== ENCOUNTER 2025-03-15 14:19 | Outpatient (AMB) | payer OTHER, SELFPAY ==
[2025-03-15 14:21] VITALS: BP 150/82; PULSE 63; O2SAT 96; BMI 22.5
--- NOTE | 2025-03-15 14:21 | A.OFFPC_ITS ---
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 Required: No Accompanied by: Self / Same As Patient Allergies atorvastatin Adverse Reaction (Intermediate, Verified 03/15/25 15:16) nausea, dizziness, fatigue Medication List - Last Reconciled 03/15/25 by Bayron Wheeler MD alendronate 70 mg PO QWEEK 3 months amlodipine 5 mg PO DAILY baclofen 10 mg PO TID budesonide 32 mcg/actuation 1 spray intranasal DAILY fluticasone propionate 50 mcg/actuation (Flonase Allergy Relief) 1 spray intranasal DAILY 14 days gabapentin 400 mg PO BEDTIME 90 days ibuprofen 800 mg PO TID PRN lisinopril-hydrochlorothiazide 20-12.5 mg 1 tab PO DAILY 90 days naloxone 4 mg/actuation (Narcan) 4 mg intranasal Q2M PRN nitrofurantoin monohyd/m-cryst 100 mg (Macrobid) 100 mg PO Q12H 5 days omeprazole 20 mg PO DAILY oxycodone-acetaminophen 10-325 mg 1 tab PO Q6H PRN 28 days promethazine 25 mg PO Q6H PRN rosuvastatin 5 mg PO DAILY 30 days Tobacco use date assessed: 03/15/25 Dental Screening Dental Screen Date: 03/15/25 Did you have a dental visit in the last 12 months?: Yes Did you have a dental problem in the last 6 months where you did not have access to dental care?: No Was dental information given to patient?: Patient has dentist HPI 4 month f/u HPI Details Patient comes in today for her follow up visit States that she accidentally tripped and fell on (both of) her knees yesterday and is currently experiencing increased pain over both of her knees She has noticed (+) bruising on the front of both of her knees earlier this morning She denies any headaches or dizziness Denies any chest pains, no increased SOB No nausea/vomiting, no abdominal pain No change in bowel habits noted States that her chronic low back pain and joint pains remain adequately controlled on her current medications but she continues to experience increased pain in her left hip area as well as some left leg weakness, both of which seems to have started after a recent fall she had earlier this year She was sent for repeat lumbar spine x-rays as well as left hip x-rays at the time but she still has not gotten these x-rays done yet She had her follow up labs done earlier today - to discuss her results [facility] Medical History Osteoporosis Depression Menopause Headache Bradycardia Insomnia GERD without esophagitis Lumbar degenerative disc disease Pure hypercholesterolemia Benign essential hypertension Surgical History History of colonoscopy (~09/29/20) Hx of tubal ligation History of esophagogastroduodenoscopy (EGD) H/O lumbar discectomy H/O hemorrhoidectomy Family History Mother Lung cancer Sister Colon cancer Sister Ovarian cancer Other Mental health problem Social History Household Members: Spouse and Children Housing: House Alcohol intake: current Alcohol intake frequency: holidays/special occasions only Patient Tobacco Use Status: Former Tobacco user Tobacco use type: Cigarette Cigarettes Per Day: 3 e-Cigarette/Vaping Use: Never Used Second Hand Smoke Exposure: Yes service: No Current occupational status: employed 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 1. Little interest or pleasure in doing things: not at all 2. Feeling down, depressed, or hopeless: not at all 3. Trouble falling or staying asleep, or sleeping too much: not at all 4. Feeling tired or having little energy: nearly every day 5. Poor appetite or overeating: not at all 6. Feeling bad about yourself - or that you are a failure or have let yourself or your family down: not at all 7. Trouble concentrating on things, such as reading the newspaper or watching television: not at all 8. Moving or speaking so slowly that other people could have noticed. Or the opposite - being so fidgety or restless that you have been moving around a lot more than usual: not at all 9. Thoughts that you would be better off or of hurting yourself in some way: not at all Total score: 3 Depression Screening Interpretation: Positive Depression Screening Follow-up: Existing condition, Follow-up Visit Requested and Declines treatment Depression Screening Done: Yes 71139 - PHQ-9 Billing: Yes Source: Developed by Drs. Benjamín Chau, Miryam Fisher, Dangelo Dillon and colleagues, with an educational leopoldo from [employer]. Thrive Questionnaire Date Thrive assessed: 03/15/25 I am a: Patient What is your living situation today?: I have a steady place to live Within the past 12 months, did the food you bought not last and you didn't have the money to get more?: Never true Within the past 12 months, did you worry whether your food would run out before you got money to buy more?: Never true Do you have trouble paying for medicines?: No Do you have trouble getting transportation to medical appointments?: No Do you have trouble paying your heating and electricity bill?: No Do you have trouble taking care of your child, family member or friend?: No Do you have trouble with day-to-day activities such as bathing, preparing meals, shopping, managing finances, etc.?: I choose not to answer this question Are you currently unemployed and looking for a job?: No Are you interested in more education?: No Please select the resources that you would like help with: None Currently or been in a relationship where the following occur: No concerns reported THRIVE Score: 0 AUDIT C Alcohol Use Questionnaire (AUDIT-C) 1. How often do you have a drink containing alcohol?: Never 3. How often do you have six or more drinks on one occasion?: Never Total Score: 0 Score Reviewed/Action Taken: Yes PAKO-7 AMB Questionnaire PAKO-7 Date PAKO - 7 assessed: 03/15/25 Feeling nervous, anxious, or on edge: 0 = Not at all Not being able to stop or control worryin = Nearly every day Worrying too much about different things: 3 = Nearly every day Trouble relaxin = Nearly every day Being so restless that it is hard to sit still: 3 = Nearly every day Becoming easily annoyed or irritable: 3 = Nearly every day Feeling afraid as if something awful might happen: 0 = Not at all Total PAKO-7 score (0-4 normal; 5-9 mild; 10-14 moderate; 15-21 severe): 15 Source: Developed by Drs. Benjamín Chau, Miryam Fisher, Dangelo Dillon and colleagues, with an educational leopoldo from [employer]. Review of Systems Const Denies chills, Denies fatigue, Denies fever(s) and Denies headache(s) ENT Denies dysphagia, Denies dizziness, Denies otalgia, Denies headache(s), Reports hearing loss, Denies neck pain, Denies odynophagia and Denies sore throat Card Denies chest pain, Denies irregular heart rhythm, Denies palpitations and Reports dyspnea on exertion (mild) Resp Denies chest congestion, Denies cough and Reports dyspnea on exertion (mild) GI Denies abdominal pain, Denies constipation, Denies dysphagia, Denies heartburn, Denies diarrhea, Denies nausea, Denies odynophagia and Denies vomiting Denies urinary frequency, Denies dysuria and Denies urinary urgency Musc Reports back pain (over the lower back - chronic), Reports arthralgias (around the left hip area and over both knees now), Reports muscle weakness (in the left leg) and Denies neck pain Skin/Breast Denies rash Neuro Details: increasing pain in both lower extremities - see HPI Denies dizziness, Denies headache(s) and Denies paresthesias Psych Denies anxiety and Denies depression Endo Denies fatigue and Denies palpitations Jeffery/Lymph Denies easy bruising Physical exam (Primary Care) Vital Signs: Last Vital Signs Pulse 63 03/15/25 14:21 BP 150/82 H 03/15/25 14:21 Pulse Ox 96 03/15/25 14:21 Oxygen Delivery Method Room Air 03/15/25 14:21 BMI result Body Mass Index 22.5 Tobacco/Smoking Status: Tobacco use Status Tobacco use date assessed 03/15/25 03/15/25 14:29 Patient Tobacco Use Status Former Tobacco user 03/15/25 14:29 Tobacco use type Cigarette 03/15/25 14:29 e-Cigarette/Vaping Use Never Used 03/15/25 14:29 PHQ-9: PHQ-9 Score PHQ-9: Total score 3 03/15/25 15:19 Depression Screening Interpretation: Positive Depression Screening Follow-up: Existing condition, Follow-up Visit Requested and Declines treatment Thrive Assessment: Date of Thrive Assessment Date Thrive assessed 03/15/25 03/15/25 14:29 Currently or been in a relationship where the following occur: No concerns reported Const General: no acute distress and alert HENMT Ears: TM's normal bilaterally and EAC's normal Throat: Yes posterior oropharynx normal and Yes tonsils normal (no TP congestion) Neck Neck: Yes no lymphadenopathy and Yes supple Thyroid: Thyroid normal Resp Auscultation: clear to auscultation bilaterally, no rales and no wheezes Cardio Rate: regular rate Rhythm: regular rhythm Heart sounds: Murmur heart sound present systolic III/ and at the left sternal border GI Palpation (GI): Soft to palpation and nontender Auscultation: normal bowel sounds General: Yes no CVA tenderness Back/Spine/Pelvis Back: no CVA tenderness Thoracic/Lumbar Spine: lumbar spinal tenderness Skin Rashes: no rashes Extrem General: Yes no clubbing, cyanosis or edema Right lower extremity: knee Details: tenderness Location: of the pre-patellar area and swelling Location: of the pre-patellar area Left lower extremity: hip/thigh Details: tenderness Location: of the hip Location: anterolaterally and knee Details: tenderness Location: of the pre- patellar area and swelling Location: of the pre-patellar area Results Reviewed Results Reviewed: Laboratory Tests 03/15/25 03/15/25 06:43 06:46 WBC 8.3 Hgb 12.1 Hct 33.5 L Plt Count 314 Sodium 142 Potassium 2.9 L* Creatinine 0.57 Estimated GFR > 60 Fasting Glucose 99 Calcium 9.6 AST 27 ALT 32 H Triglycerides 276 H Cholesterol 232 H LDL Cholesterol, Calc 141 H HDL Cholesterol 36 L Vitamin B12 467 25-OH Vitamin D Total 49.3 TSH 1.26 Ur Specific [place] 1.025 Urine Protein 30 (1+) H Urine Glucose (UA) Negative Urine Blood Small (1+) H Urine Nitrite Negative Ur Leukocyte Esterase Small (1+) H Coding Level of Care Code Est Pt Level 4 (80727) Complex EM visit Add On G2211 Diagnoses Pure hypercholesterolemia E78.00 Benign essential hypertension I10 Cardiac murmur R01.1 Shortness of breath R06.02 Dyspnea type: shortness of breath Hypokalemia E87.6 Age-related osteoporosis without current pathological fracture M81.0 Osteoporosis type: age-related Presence of current pathological fracture: without current pathological fracture Degeneration of intervertebral disc of lumbar region with discogenic back pain and lower extremity pain M51.362 Disc-related pain type: discogenic back pain and lower extremity pain Left hip pain M25.552 Acute pain of both knees M25.561; M25.562 Chronicity: acute GERD without esophagitis K21.9 Insomnia, unspecified type G47.00 Insomnia type: unspecified Episode of recurrent major depressive disorder, unspecified depression episode severity F33.9 Active/Remission status: currently active Depression Type: major depressive disorder Major depression episode severity: unspecified Major depression recurrence: recurrent Smoker F17.200 Additional Codes PHQ-9 - 86371 - PHQ-9 Billing: Yes ([id number]) Assessment & Plan Assessment & Plan (1) Pure hypercholesterolemia: Code(s): E78.00 - Pure hypercholesterolemia, unspecified Category: Medical Plan: Results of her labs done earlier today reviewed and discussed with patient - she is advised that her cholesterol levels have again increased significantly from previous Patient admits to poor compliance with her Rx over the past few months - states that she often 'forgets' to take her Rx Reinforced low cholesterol diet Continue Rosuvastatin 5 mg QD - she was reportedly tolerating Rosuvastatin with no issues (she could not tolerate Atorvastatin due to side effects - fatigue, nausea, dizziness) Will have her recheck her labs and fasting lipids in 4 months for follow up (2) Benign essential hypertension: Code(s): I10 - Essential (primary) hypertension Category: Medical Plan: Reinforced low-sodium diet - goal is systolic BP of at least 130 mm or less Continue Lisinopril-Hydrochlorothiazide 20-12.5 mg once a day (in AM) and Amlodipine 5 mg daily (in PM) (3) Cardiac murmur: Code(s): R01.1 - Cardiac murmur, unspecified Category: Medical Plan: Echocardiogram done in February 2024 revealed normal LV ejection fraction at 65-70%, with increased gradient across aortic valve and LVOT suggestive of increased stroke volume but there is no evidence of aortic stenosis. RV systolic pressure is normal and there is no gross pericardial effusion No further intervention is needed at this time (4) Dyspnea: Code(s): R06.00 - Dyspnea, unspecified Category: Medical Qualifiers: Dyspnea type: shortness of breath Qualified Code(s): R06.02 - Shortness of breath Plan: Patient is a chronic smoker She was previously sent her for chest x-rays and PFT for further evaluation - she still has not gotten her chest x-rays done yet PFTs done back in August 2024 came out normal Have advised her again to get her chest x-rays done as well (updated) when she goes for her hip x-rays (5) Hypokalemia: Code(s): E87.6 - Hypokalemia Category: Medical Plan: Patient is advised that her serum potassium level is very low on her recent labs Discussed that this is likely due to her being on a diuretic (HCTZ) for her blood pressure Will start her on Potassium Chloride ER 20 meq QD Will recheck her serum electrolyte levels in a few months for follow up (6) Osteoporosis: Code(s): M81.0 - Age-related osteoporosis without current pathological fracture Category: Medical Qualifiers: Osteoporosis type: age-related Presence of current pathological fracture: without current pathological fracture Qualified Code(s): M81.0 - Age- related osteoporosis without current pathological fracture Plan: Continue Alendronate 70 mg Q week as instructed Reinforced fall precautions and she is again encouraged to continue to try to stay active and exercise regularly Her last BMD on 09/04/2023 revealed (+) osteopenia based on the lowest T-score value of -2.3 in the lumbar spine applying World Health Organization criteria but her BMD has increased by 9.3% from baseline in the left femur but is unchanged in the lumbar spine Her index BMD done in March 2021 showed (+) osteoporosis based on the lowest T- score value of -2.5 in the femoral neck Will recheck her BMD again in 2 to 3 years for follow up (7) Lumbar degenerative disc disease: Code(s): M51.36 - Other intervertebral disc degeneration, lumbar region Category: Medical Qualifiers: Disc-related pain type: discogenic back pain and lower extremity pain Qualified Code(s): M51.362 - Other intervertebral disc degeneration, lumbar region with discogenic back pain and lower extremity pain Plan: Patient continues to c/o (chronic) low back pain and frequent radiation of pain down her left leg - states that her current Rx help keep her symptoms manageable but they are not lasting as long as they used to EMG and NCV done in December 2021 revealed (+) chronic bilateral lower lumbar radiculopathy with no evidence of acute pathology. Study was otherwise unremarkable with no evidence of any significant neuropathy but as her lower extremity symptoms appear to be getting worse lately, will have her go for repeat EMG & NCV for further evaluation Reinforced activity and weight lifting restrictions to minimize aggravating her back pain Continue Oxycodone 10 mg every 6 hours as needed, Baclofen 10 mg TID PRN, Ibuprofen 800 mg 3 times a day with food and Gabapentin 400 mg Q HS in the meantime (8) Left hip pain: Code(s): M25.552 - Pain in left hip Category: Medical Plan: Discussed again concerns about the possibility of a hip fracture that is causing her current left leg weakness, based on her symptoms She was sent for left hip x-rays ELIE previously for further evaluation but she still has not gotten this done yet - is encouraged to go and get this done ELIE and get some resolution on this (9) Bilateral knee pain: Code(s): M25.561 - Pain in right knee; M25.562 - Pain in left knee Category: Medical Qualifiers: Chronicity: acute Qualified Code(s): M25.561 - Pain in right knee; M25.562 - Pain in left knee Plan: S/P fall on both of her knees yesterday, with resulting bruising and some edema noted over the patellar areas bilaterally Will send patient for bilateral knee x-rays for further evaluation (10) GERD without esophagitis: Code(s): K21.9 - Gastro-esophageal reflux disease without esophagitis Category: Medical Plan: Dietary restrictions reinforced Continue Omeprazole 20 mg QD (11) Insomnia: Code(s): G47.00 - Insomnia, unspecified Category: Medical Qualifiers: Insomnia type: unspecified Qualified Code(s): G47.00 - Insomnia, unspecified Plan: Sleep hygiene reinforced Trazodone has not helped much and she could not tolerate Zolpidem (nightmares) and she does not wish to try anything else to help her sleep for now (12) Depression: Code(s): F32.A - Depression, unspecified Category: Medical Qualifiers: Active/Remission status: currently active Depression Type: major depressive disorder Major depression episode severity: unspecified Major depression recurrence: recurrent Qualified Code(s): F33.9 - Major depressive disorder, recurrent, unspecified Plan: She was on Duloxetine 30 mg QD in the past but she appears to have self- discontinued this at some point - unclear as to when she stopped her Rx States that she is currently doing better with her mood and does not feel that she needs to take any Rx additionally at this time (13) Smoker: Code(s): F17.200 - Nicotine dependence, unspecified, uncomplicated Category: Social Hx Plan: Patient is counseled again on complete smoking cessation Plan Follow up in 4 months Orders: Orders Comprehensive [place]. Panel Fast 4 Months E78.00 - Pure hypercholesterolemia, unspecified XR Knee Malcolm 3V Today M25.561 - Pain in right knee, M25.562 - Pain in left knee, Z91.81 - History of falling Lipid Panel 4 Months E78.00 - Pure hypercholesterolemia, unspecified Medications: New potassium chloride ER (K-Tab) 20 mEq PO DAILY 90 tabs 1RF 90 days
== END 2025-03-15 15:33 | disposition home or self-care (01) ==
LOC: HO.HMCH 14:19
PROVIDERS: PCP Internal Medicine; Visit Provider Internal Medicine
DX: E78.00 Pure hypercholesterolemia, unspecified (principal); I10 Essential (primary) hypertension; R01.1 Cardiac murmur, unspecified; R06.02 Shortness of breath; E87.6 Hypokalemia; M81.0 Age-related osteoporosis without current pathological fracture; M51.362 Other intervertebral disc degeneration, lumbar region with discogenic back pain and lower extremity pain; M25.552 Pain in left hip; M25.561 Pain in right knee; M25.562 Pain in left knee; K21.9 Gastro-esophageal reflux disease without esophagitis; G47.00 Insomnia, unspecified; F33.9 Major depressive disorder, recurrent, unspecified; F17.200 Nicotine dependence, unspecified, uncomplicated

== ENCOUNTER 2025-07-20 10:20 | Outpatient (REF) | payer OTHER, SELFPAY ==
--- NOTE | ~2025-07-20 | XR_ITS ---
EXAMINATION: XR LUMBOSACRAL SPINE CLINICAL INFORMATION: M54.50 - Low back pain, unspecified COMPARISON: Previous x-ray February 2016 TECHNIQUE: Three views of the lumbosacral spine. FINDINGS: Mild curvature of the lumbar spine to the right. Bone alignment is otherwise normal. No fracture or dislocation. Degenerative disc disease and spondylosis at L4-5. Lower lumbar spine facet arthritis. Mild atherosclerotic disease. XR/XR lumbar spine 2-3V IMPRESSION: Degenerative disc disease and spondylosis at L4-5 and lower lumbar spine facet arthritis. Electronically signed by: Leeanne Matta MD 07/20/2025 11:04 AM [facility]
--- NOTE | ~2025-07-20 | XR_ITS ---
EXAMINATION: XR HIP, LEFT CLINICAL INFORMATION: M25.552 - Pain in left hip COMPARISON: None available. TECHNIQUE: Two views of the left hip. FINDINGS: No fracture. Alignment is anatomic. Hip joint space is maintained. Soft tissues are unremarkable. XR/XR hip LT min 2V IMPRESSION: Normal left hip. Electronically signed by: Leeanne Matta MD 07/20/2025 11:03 AM [facility]
--- NOTE | ~2025-07-20 | XR_ITS ---
EXAMINATION: XR KNEE 3 VIEW BILATERAL CLINICAL INFORMATION: bilateral knee pain; S/P fall COMPARISON: None available. TECHNIQUE: 3 views of both knees was obtained. FINDINGS: Bone alignment is normal. No fracture or dislocation. Mild bilateral medial femoral tibial joint space narrowing. Joint spaces otherwise normal. No joint effusion. XR/XR Knee Malcolm 3V IMPRESSION: Mild bilateral medial femoral tibial joint space narrowing. No fracture or effusion. Electronically signed by: Leeanne Matta MD 07/20/2025 11:07 AM [facility]
--- NOTE | ~2025-07-20 | XR_ITS ---
EXAMINATION: XR CHEST CLINICAL INFORMATION: R06.00 - Dyspnea, unspecified COMPARISON: November 29, 2016 TECHNIQUE: PA and lateral views. FINDINGS: Hyperinflated lungs. No consolidation, pleural effusion or pneumothorax. Cardiomediastinal silhouette size is normal with a round cardiac apex. Mild multilevel spondylosis. S-shaped curvature of the thoracolumbar spine. XR/XR chest 2V IMPRESSION: Hyperinflated lungs suggesting COPD emphysematous type changes. No acute airspace disease. Scoliosis and spondylosis, thoracolumbar spine. Electronically signed by: Derick Mckeon MD 07/20/2025 11:02 AM [facility]
== END 2025-07-20 10:21 | disposition home or self-care (01) ==
LOC: HO.XRAY 10:20
PROVIDERS: PCP Internal Medicine; Visit Provider Internal Medicine
DX: M25.552 Pain in left hip (principal); M54.50 Low back pain, unspecified; M25.561 Pain in right knee; M25.562 Pain in left knee; F17.200 Nicotine dependence, unspecified, uncomplicated; R06.00 Dyspnea, unspecified; Z91.81 History of falling
CPT/HCPCS: 71046; 72100; 73502; 73562

== ENCOUNTER → 2025-07-20 10:22 | Outpatient (BNV) | payer OTHER, SELFPAY | PROVIDERS: PCP Internal Medicine; Visit Provider Radiology Diagnostic Radiology | DX: M25.552 Pain in left hip (principal); M51.360 Other intervertebral disc degeneration, lumbar region with discogenic back pain only; M47.816 Spondylosis without myelopathy or radiculopathy, lumbar region; R06.00 Dyspnea, unspecified; M47.815 Spondylosis without myelopathy or radiculopathy, thoracolumbar region; M41.35 Thoracogenic scoliosis, thoracolumbar region; M25.861 Other specified joint disorders, right knee; M25.862 Other specified joint disorders, left knee | CPT/HCPCS: 71046; 72100; 73502; 73562 ==

== ENCOUNTER 2025-07-23 07:44 | Outpatient (REF) | payer OTHER, SELFPAY ==
[2025-07-23 08:46] LABS: Appearance Urine Clear; Glucose Urine UA Negative (Negative); PH 6.0 (5.0-9.0); Specific Gravity - Urine 1.025 (1.005-1.025); UMIC TRIGGER UACC YES
[2025-07-23 09:08] LABS: Alanine Aminotransferase 24 U/L (0-31); Albumin Level 4.8 g/dL (3.5-5.0); Alkaline Phosphatase 76 U/L (39-117); Anion Gap 13 (12-20); Aspartate Amino Transferase 25 U/L (5-31); Blood Urea Nitrogen 26 mg/dL (9-16); Calcium 9.5 mg/dL (8.4-10.2); Carbon Dioxide 25 mmol/L (22-29); Chloride 109 mmol/L (96-108); Cholesterol 176 mg/dL (<200); Estimated Glomerular Filt Rate > 60; HDL Cholesterol 38 mg/dL (>40); Potassium 3.2 mmol/L (3.3-5.1); Sodium 144 mmol/L (135-145); Total Protein 7.0 g/dL (6.5-8.0); Triglycerides 256 mg/dL (<150)
== END 2025-07-23 07:45 | disposition home or self-care (01) ==
LOC: HO.LAB 07:44
PROVIDERS: PCP Internal Medicine; Visit Provider Internal Medicine
DX: E78.00 Pure hypercholesterolemia, unspecified (principal); R30.0 Dysuria; G57.93 Unspecified mononeuropathy of bilateral lower limbs; I10 Essential (primary) hypertension; R01.1 Cardiac murmur, unspecified; R06.02 Shortness of breath; E87.6 Hypokalemia; M81.0 Age-related osteoporosis without current pathological fracture; M25.552 Pain in left hip; M25.561 Pain in right knee; M25.562 Pain in left knee; K21.9 Gastro-esophageal reflux disease without esophagitis; G47.00 Insomnia, unspecified; F33.9 Major depressive disorder, recurrent, unspecified; F17.210 Nicotine dependence, cigarettes, uncomplicated; Z79.891 Long term (current) use of opiate analgesic; Z79.899 Other long term (current) drug therapy
CPT/HCPCS: 36415; 80053; 80061; 81001; 96127; 99212

== ENCOUNTER 2025-07-23 15:50 | Outpatient (AMB) | payer OTHER, SELFPAY ==
[2025-07-23 15:58] VITALS: BP 152/80; PULSE 69; O2SAT 98; BMI 23.4
--- NOTE | 2025-07-23 15:58 | A.OFFPC_ITS ---
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 Accompanied by: Self / Same As Patient Allergies atorvastatin Adverse Reaction (Intermediate, Verified 07/23/25 16:49) nausea, dizziness, fatigue Medication List - Last Reconciled 07/23/25 by Bayron Wheeler MD alendronate 70 mg PO QWEEK 3 months amlodipine 5 mg PO DAILY baclofen 10 mg PO TID budesonide 32 mcg/actuation 1 spray intranasal DAILY fluticasone propionate 50 mcg/actuation (Flonase Allergy Relief) 1 spray intranasal DAILY 14 days gabapentin 400 mg PO BEDTIME 90 days ibuprofen 800 mg PO TID PRN lisinopril-hydrochlorothiazide 20-12.5 mg 1 tab PO DAILY 90 days naloxone 4 mg/actuation (Narcan) 4 mg intranasal Q2M PRN nitrofurantoin monohyd/m-cryst 100 mg (Macrobid) 100 mg PO Q12H 5 days omeprazole 20 mg PO DAILY oxycodone-acetaminophen 10-325 mg 1 tab PO Q6H PRN 28 days potassium chloride ER (K-Tab) 20 mEq PO DAILY 90 days promethazine 25 mg PO Q6H PRN rosuvastatin 5 mg PO DAILY 30 days Tobacco use date assessed: 07/23/25 Dental Screening Dental Screen Date: 07/23/25 Did you have a dental visit in the last 12 months?: Yes Did you have a dental problem in the last 6 months where you did not have access to dental care?: No Was dental information given to patient?: Patient has dentist HPI hyperlipidemia, chronic low back pain HPI Details Patient comes in today for her follow up visit She continues to complain of increased burning pain in her legs and feet, especially at night - notes that her lower leg symptoms have been getting worse over past year and that her current Rx of Gabapentin 400 mg at bedtime and Baclofen do not really help She is not able to take Gabapentin during the day because she says it sedates her too much that she is not able to work if she takes it Her symptoms are also functionally limiting, preventing her from standing for more than 10 minutes at a time States that she has resorted to taking an extra tablet of her Percocet at times in the middle of the night, which she states help significantly and she is able to go back to sleep afterwards, but doing this often will make her Rx short and she is unable to refill her Rx ahead of time She recalls receiving Toradol injections in the emergency room in the past that he states helped her pain significantly, and she is wondering if that is an option for her at this time She also continues to complain of chronic low back pain, which her pain medication help keep manageable She denies any headaches or dizziness Denies any chest pains, no increased shortness of breath No nausea/vomiting, no abdominal pain No change in bowel habits noted She had her follow-up labs done earlier today - to discuss her results COUNTS INCLUDE 234 BEDS AT [facility] Medical History Osteoporosis Depression Menopause Headache Bradycardia Insomnia GERD without esophagitis Lumbar degenerative disc disease Pure hypercholesterolemia Benign essential hypertension Surgical History History of colonoscopy (~09/29/20) Hx of tubal ligation History of esophagogastroduodenoscopy (EGD) H/O lumbar discectomy H/O hemorrhoidectomy Family History Mother Lung cancer Sister Colon cancer Sister Ovarian cancer Other Mental health problem Social History Household Members: Spouse and Children Housing: House Alcohol intake: current Alcohol intake frequency: holidays/special occasions only Patient Tobacco Use Status: Former Tobacco user Tobacco use type: Cigarette Cigarettes Per Day: 3 e-Cigarette/Vaping Use: Never Used Second Hand Smoke Exposure: Yes service: No Current occupational status: employed 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 1. Little interest or pleasure in doing things: not at all 2. Feeling down, depressed, or hopeless: not at all 3. Trouble falling or staying asleep, or sleeping too much: not at all 4. Feeling tired or having little energy: nearly every day 5. Poor appetite or overeating: not at all 6. Feeling bad about yourself - or that you are a failure or have let yourself or your family down: not at all 7. Trouble concentrating on things, such as reading the newspaper or watching television: not at all 8. Moving or speaking so slowly that other people could have noticed. Or the opposite - being so fidgety or restless that you have been moving around a lot more than usual: not at all 9. Thoughts that you would be better off or of hurting yourself in some way: not at all Total score: 3 Depression Screening Interpretation: Positive Depression Screening Follow-up: Existing condition and Follow-up Visit Requested Depression Screening Done: Yes [id number] - PHQ-9 Billing: Yes Source: Developed by Drs. Benjamín Chau, Miryam Fisher, Dangelo Dillon and colleagues, with an educational leopoldo from [employer]. Thrive Questionnaire Date Thrive assessed: 07/23/25 I am a: Patient What is your living situation today?: I have a steady place to live Within the past 12 months, did the food you bought not last and you didn't have the money to get more?: Never true Within the past 12 months, did you worry whether your food would run out before you got money to buy more?: Never true Do you have trouble paying for medicines?: No Do you have trouble getting transportation to medical appointments?: No Do you have trouble paying your heating and electricity bill?: No Do you have trouble taking care of your child, family member or friend?: No Do you have trouble with day-to-day activities such as bathing, preparing meals, shopping, managing finances, etc.?: I choose not to answer this question Are you currently unemployed and looking for a job?: No Are you interested in more education?: No Please select the resources that you would like help with: None Currently or been in a relationship where the following occur: No concerns reported THRIVE Score: 0 AUDIT C Alcohol Use Questionnaire (AUDIT-C) 1. How often do you have a drink containing alcohol?: Never 3. How often do you have six or more drinks on one occasion?: Never Total Score: 0 Score Reviewed/Action Taken: Yes PAKO-7 AMB Questionnaire PAKO-7 Date PAKO - 7 assessed: 07/23/25 Feeling nervous, anxious, or on edge: 0 = Not at all Not being able to stop or control worryin = Nearly every day Worrying too much about different things: 3 = Nearly every day Trouble relaxin = Nearly every day Being so restless that it is hard to sit still: 3 = Nearly every day Becoming easily annoyed or irritable: 3 = Nearly every day Feeling afraid as if something awful might happen: 0 = Not at all Total PAKO-7 score (0-4 normal; 5-9 mild; 10-14 moderate; 15-21 severe): 15 Source: Developed by Drs. Benjamín Chau, Miryam Fisher, Dangelo Dillon and colleagues, with an educational leopoldo from [employer]. Review of Systems Const Denies chills, Reports difficulty sleeping (mostly due to her lower extremity symptoms), Denies fatigue, Denies fever(s) and Denies headache(s) ENT Denies dysphagia, Denies dizziness, Denies otalgia, Denies headache(s), Reports hearing loss, Denies neck pain, Denies odynophagia and Denies sore throat Card Denies chest pain, Denies irregular heart rhythm, Denies palpitations and Reports dyspnea on exertion (mild) Resp Denies chest congestion, Denies cough and Reports dyspnea on exertion (mild) GI Denies abdominal pain, Denies constipation, Denies dysphagia, Denies heartburn, Denies diarrhea, Denies nausea, Denies odynophagia and Denies vomiting Denies difficulty voiding, Denies dysuria and Denies urinary urgency Musc Reports back pain (over the lower back - chronic), Denies arthralgias and Denies neck pain Skin/Breast Denies rash Neuro Details: increasing pain in both lower extremities - see HPI Reports burning sensations (in both feet - getting worse), Denies dizziness, Denies headache(s), Reports radicular pain (in both lower extremities) and Denies paresthesias Psych Denies anxiety and Denies depression Endo Denies fatigue and Denies palpitations Jeffery/Lymph Denies easy bruising Physical exam (Primary Care) Vital Signs: Last Vital Signs Pulse 69 07/23/25 15:58 BP 152/80 H 07/23/25 15:58 Pulse Ox 98 07/23/25 15:58 Oxygen Delivery Method Room Air 07/23/25 15:58 BMI result Body Mass Index 23.4 Tobacco/Smoking Status: Tobacco use Status Tobacco use date assessed 07/23/25 07/23/25 16:02 Patient Tobacco Use Status Former Tobacco user 07/23/25 16:02 Tobacco use type Cigarette 07/23/25 16:02 e-Cigarette/Vaping Use Never Used 07/23/25 16:02 PHQ-9: PHQ-9 Score PHQ-9: Total score 3 07/24/25 14:44 Depression Screening Interpretation: Positive Depression Screening Follow-up: Existing condition and Follow-up Visit Requested Thrive Assessment: Date of Thrive Assessment Date Thrive assessed 07/23/25 07/23/25 16:02 Currently or been in a relationship where the following occur: No concerns reported Const General: no acute distress and alert HENMT Ears: TM's normal bilaterally and EAC's normal Throat: Yes posterior oropharynx normal and Yes tonsils normal (no TP congestion) Neck Neck: Yes supple and No lymphadenopathy Thyroid: Thyroid normal Resp Auscultation: clear to auscultation bilaterally, no rales and no wheezes Cardio Rate: regular rate Rhythm: regular rhythm Heart sounds: Murmur heart sound present systolic III/ and at the left sternal border GI Palpation (GI): Soft to palpation and nontender Auscultation: normal bowel sounds General: Yes no CVA tenderness Back/Spine/Pelvis Back: no CVA tenderness Thoracic/Lumbar Spine: lumbar spinal tenderness Skin Rashes: no rashes Neuro Gait exam (Neuro): Normal gait present Extrem General: Yes no clubbing, cyanosis or edema Left lower extremity: hip/thigh Details: no tenderness Results Reviewed Results Reviewed: Laboratory Tests 07/23/25 07/23/25 07:51 07:57 Sodium 144 Potassium 3.2 L Creatinine 0.63 Estimated GFR > 60 Fasting Glucose 104 H Calcium 9.5 AST 25 ALT 24 Triglycerides 256 H Cholesterol 176 LDL Cholesterol, Calc 87 HDL Cholesterol 38 L Ur Specific [place] 1.025 Urine Protein 30 (1+) H Urine Glucose (UA) Negative Urine Blood Trace H Urine Nitrite Negative Ur Leukocyte Esterase Negative Coding Level of Care Code Est Pt Level 4 (28975) Diagnoses Neuropathy involving both lower extremities G57.93 Pure hypercholesterolemia E78.00 Benign essential hypertension I10 Cardiac murmur R01.1 Shortness of breath R06.02 Dyspnea type: shortness of breath Hypokalemia E87.6 Age-related osteoporosis without current pathological fracture M81.0 Osteoporosis type: age-related Presence of current pathological fracture: without current pathological fracture Lumbar degenerative disc disease M51.36 Left hip pain M25.552 Acute pain of both knees M25.561; M25.562 Chronicity: acute GERD without esophagitis K21.9 Insomnia, unspecified type G47.00 Insomnia type: unspecified Episode of recurrent major depressive disorder, unspecified depression episode severity F33.9 Active/Remission status: currently active Depression Type: major depressive disorder Major depression episode severity: unspecified Major depression recurrence: recurrent Smoker F17.200 Additional Codes PHQ-9 - 23804 - PHQ-9 Billing: Yes ([id number]) Assessment & Plan Assessment & Plan (1) Neuropathy involving both lower extremities: Code(s): G57.93 - Unspecified mononeuropathy of bilateral lower limbs Category: Medical Plan: EMG and NCV done earlier this year in November 2024 revealed findings of chronic bilateral lower lumbar radiculopathy and bilateral superficial sensory peroneal neuropathy Have advised patient that just taking more of her Percocets to help with her lower extremity pain at night is not appropriate and that even though they are helping now, the relief she gets from them are temporary and she will end up needing to take more of them and in stronger doses in the future just to get the same degree of relief, so I am not going to continue increasing her dosing and her dosage at this time - patient appears quite unhappy and upset with this and says that she just wants to be able to get some sleep at night as she feels tired throughout most of the day when she is at work as she is not getting enough sleep at night lately Will try increasing her Gabapentin now to 600 mg Q HS Another option is for her to start taking her Gabapentin 400 mg in the morning as well ans hopefully, she can get used to taking it pretty quickly and not feel as sedated and this may help relieve her symptoms of neuropathy better Will also refer her to neurology for further recommendations regarding her perceived worsening neuropathic symptoms (2) Pure hypercholesterolemia: Code(s): E78.00 - Pure hypercholesterolemia, unspecified Category: Medical Plan: Results of her labs done earlier today reviewed and discussed with patient - her cholesterol levels have improved significantly from previous Reinforced low cholesterol diet Continue Rosuvastatin 5 mg QD - she has been tolerating Rosuvastatin without any issues (she could not tolerate Atorvastatin due to side effects - fatigue, nausea, dizziness) Will have her recheck her labs and fasting lipids in 3 months for follow up (3) Benign essential hypertension: Code(s): I10 - Essential (primary) hypertension Category: Medical Plan: Reinforced low-sodium diet - goal is systolic BP of at least 130 mm or less Continue Lisinopril-Hydrochlorothiazide 20-12.5 mg once a day (in AM) and Amlodipine 5 mg daily (in PM) Patient states that her blood pressure is high today because she feels upset about her current situation (4) Cardiac murmur: Code(s): R01.1 - Cardiac murmur, unspecified Category: Medical Plan: Echocardiogram done in February 2024 revealed normal LV ejection fraction at 65-70%, with increased gradient across aortic valve and LVOT suggestive of increased stroke volume but there is no evidence of aortic stenosis. RV systolic pressure is normal and there is no gross pericardial effusion No further intervention is needed at this time (5) Dyspnea: Code(s): R06.00 - Dyspnea, unspecified Category: Medical Qualifiers: Dyspnea type: shortness of breath Qualified Code(s): R06.02 - Shortness of breath Plan: Patient is a chronic smoker PFTs done back in August 2024 came out normal Chest x-rays done a few days ago on 07/20/2025 showed hyperinflated lungs suggesting COPD, emphysematous type changes. No acute airspace disease are noted She has been advised that she needs to work actively on quitting smoking (6) Hypokalemia: Code(s): E87.6 - Hypokalemia Category: Medical Plan: Patient is advised that her serum potassium level is still low at 3.2 mmol/L on her recent labs She is on HCTZ for high blood pressure and this is likely the reason for her low potassium level Continue Potassium Chloride ER 20 meq QD Will recheck her serum electrolyte levels in 3 months for follow up (7) Osteoporosis: Code(s): M81.0 - Age-related osteoporosis without current pathological fracture Category: Medical Qualifiers: Osteoporosis type: age-related Presence of current pathological fracture: without current pathological fracture Qualified Code(s): M81.0 - Age- related osteoporosis without current pathological fracture Plan: Continue Alendronate 70 mg Q week as instructed Reinforced fall precautions but patient is again encouraged to continue to try to stay active and exercise regularly Her last BMD on 09/04/2023 revealed (+) osteopenia based on the lowest T-score value of -2.3 in the lumbar spine; her BMD has increased by 9.3% from baseline in the left femur but is unchanged in the lumbar spine Her index BMD done in March 2021 showed (+) osteoporosis based on the lowest T- score value of -2.5 in the femoral neck Will recheck her BMD again now for follow up (8) Lumbar degenerative disc disease: Code(s): M51.36 - Other intervertebral disc degeneration, lumbar region Category: Medical Plan: Patient continues to c/o (chronic) low back pain and frequent radiation of pain down her left leg - states that her current Rx help keep her symptoms manageable but they are not lasting as long as they used to EMG and NCV done in December 2021 revealed (+) chronic bilateral lower lumbar radiculopathy with no evidence of acute pathology. Study was otherwise unremarkable with no evidence of any significant neuropathy but as her lower extremity symptoms appear to be getting worse lately, she was sent for repeat EMG & NCV earlier this year, which revealed (+) findings of chronic bilateral lower lumbar radiculopathy and bilateral superficial sensory peroneal neuropathy Repeat lumbar spine x-rays done a few days ago on 07/20/2025 revealed (+) degenerative disc disease and spondylosis at L4-5 and lower lumbar spine facet arthritis Reinforced activity and weight lifting restrictions to minimize aggravating her back pain Continue Oxycodone 10 mg every 6 hours as needed, Baclofen 10 mg TID PRN, Ibuprofen 800 mg 3 times a day with food and Gabapentin 600 mg Q HS (dose increased today) (9) Left hip pain: Code(s): M25.552 - Pain in left hip Category: Medical Plan: Her left hip x-rays done a few days ago came back normal Suspect that her left hip pains may be radicular pains or radiating pain from her lower back Can consider referring her to physical therapy for further management if her left hip symptoms persist or progress (10) Bilateral knee pain: Code(s): M25.561 - Pain in right knee; M25.562 - Pain in left knee Category: Medical Qualifiers: Chronicity: acute Qualified Code(s): M25.561 - Pain in right knee; M25.562 - Pain in left knee Plan: This started after patient fell on both of her knees a few month ago, with resulting bruising and some edema noted over the patellar areas bilaterally Patient states that these have improved significantly from a few months ago Bilateral knee x-rays done a few days ago revealed (+) mild bilateral medial femoral tibial joint space narrowing. No fracture or effusion are noted (11) GERD without esophagitis: Code(s): K21.9 - Gastro-esophageal reflux disease without esophagitis Category: Medical Plan: Dietary restrictions reinforced Continue Omeprazole 20 mg QD (12) Insomnia: Code(s): G47.00 - Insomnia, unspecified Category: Medical Qualifiers: Insomnia type: unspecified Qualified Code(s): G47.00 - Insomnia, unspecified Plan: Sleep hygiene reinforced Trazodone has not helped much and she could not tolerate Zolpidem (nightmares) and she does not wish to try anything else to help her sleep for now Thinks that her sleep issues are also made worse by her recently increasing neuropathic pain in her legs and feet (13) Depression: Code(s): F32.A - Depression, unspecified Category: Medical Qualifiers: Active/Remission status: currently active Depression Type: major depressive disorder Major depression episode severity: unspecified Major depression recurrence: recurrent Qualified Code(s): F33.9 - Major depressive disorder, recurrent, unspecified Plan: She was on Duloxetine 30 mg QD in the past but she appears to have self- discontinued this at some point - unclear as to when she stopped her Rx States that she does not feel that she needs to take any Rx additionally at this time (14) Smoker: Code(s): F17.200 - Nicotine dependence, unspecified, uncomplicated Category: Social Hx Plan: Patient is counseled again on complete smoking cessation, especially in light of her recent chest x-ray findings Plan Follow up in 3 months Orders: Orders UA CC w/rflx Micro + Cult 3 Months R30.0 - Dysuria Vitamin B12 and Folate 3 Months E53.8 - Deficiency of other specified B group vitamins Comprehensive [place]. Panel Fast 3 Months E78.00 - Pure hypercholesterolemia, unspecified Lipid Panel 3 Months E78.00 - Pure hypercholesterolemia, unspecified Complete Blood Count Auto Diff 3 Months D64.9 - Anemia, unspecified Referrals Neurology Referral G57.93 - Unspecified mononeuropathy of bilateral lower limbs Medications: New gabapentin 600 mg PO BEDTIME 30 tabs 1RF 30 days Discontinued gabapentin Discontinued Reason: Doctor's Order 400 mg PO BEDTIME 90 days 90 caps 1RF
== END 2025-07-23 17:18 | disposition home or self-care (01) ==
LOC: HO.HMCH 15:51
PROVIDERS: PCP Internal Medicine; Visit Provider Internal Medicine
DX: G57.93 Unspecified mononeuropathy of bilateral lower limbs (principal); E78.00 Pure hypercholesterolemia, unspecified; I10 Essential (primary) hypertension; R01.1 Cardiac murmur, unspecified; R06.02 Shortness of breath; E87.6 Hypokalemia; M81.0 Age-related osteoporosis without current pathological fracture; M51.369 Other intervertebral disc degeneration, lumbar region without mention of lumbar back pain or lower extremity pain; M25.552 Pain in left hip; M25.561 Pain in right knee; M25.562 Pain in left knee; K21.9 Gastro-esophageal reflux disease without esophagitis; G47.00 Insomnia, unspecified; F33.9 Major depressive disorder, recurrent, unspecified; F17.200 Nicotine dependence, unspecified, uncomplicated